=== PATIENT | male | born 1960 | race Caucasian/White ===

== ENCOUNTER → 2017-11-12 11:05 | Outpatient (CLI) | payer OTHER, SELFPAY ==
[2017-11-14 14:37] LABS: Parathyroid Hormone Int 61 pg/mL (14-64)
[2017-11-14 15:59] LABS: Ionized Calcium 5.2 mg/dL (4.8-5.6)
[2017-11-15 09:03] LABS: Albumin 4.6 g/dL (3.6-5.1); Sex Hormone Binding Globulin 12 nmol/L (22-77); Testosterone, Bioavailable 482.9 ng/dL (110.0-575.0); Testosterone, Total 790 ng/dL (250-1100); Testosterone,Free 229.9 pg/mL (46.0-224.0)
== END ==
PROVIDERS: PCP Physician Assistant; Visit Provider Physician Assistant
DX: E21.5 Disorder of parathyroid gland, unspecified (principal); E29.1 Testicular hypofunction
CPT/HCPCS: 36415; 82040; 82330; 83970; 84270; 84403

== ENCOUNTER 2019-02-20 16:47 | Emergency (ER) | payer OTHER, SELFPAY ==
[2019-02-20 16:48] VITALS: BP 161/91; PULSE 74; RESP 18; TEMP 36.6; O2SAT 96
--- NOTE | 2019-02-20 16:54 | DI.RAD.S_ITS ---
PROCEDURE: XR RIBS RT MIN 3V W CXR 1V INDICATIONS: fall w/ chest pain right side worse w/ movement. TECHNIQUE: 3 views of the right ribs were acquired, along with a single view chest. COMPARISON: None. FINDINGS: Surgical changes and devices: None. Bones and chest wall: No fractures or dislocations. No suspicious bony lesions. Overlying soft tissues appear unremarkable. Lungs and pleura: No pleural effusions or pneumothorax. Lungs appear clear. Mediastinum: Mediastinal contours appear normal. Heart size is enlarged. IMPRESSION: No visualized acute fracture or dislocation. However, if clinical concern and/or pain persist, short interval imaging followup in 7-10 days is recommended, as occult injury cannot be definitively excluded. Dictated by: Philly Gaytan M.D. on 02/20/2019 at 17:47 Approved by: Philly Gaytan M.D. on 02/20/2019 at 17:48
--- NOTE | 2019-02-20 17:39 | ED.FALL ---
HPI - Fall General Chief Complaint: Fall Stated Complaint: FALL RIB PAIN Time Seen by Provider: 02/20/19 17:12 Source: patient Mode of arrival: Ambulatory Limitations: no limitations History of Present Illness HPI Narrative: 58-year-old male nonsmoker with noncontributory medical history presents with a chief complaint of severe right-sided rib pain. He states he was sitting up in his bed about 1 week ago and was not quite awake when he toppled over and fell onto a hardwood floor. He had significant right-sided rib pain which seemed to improve over the course of the week until today when he made motion and then felt pop. He denies any shortness of breath or hemoptysis. He denies any blood in his urine or abdominal pain. He is otherwise well and free of complaint. MD complaint: fall Onset (ago): day(s) Fall from: out of bed Fall witnessed: no Place fall occurred: home Loss of consciousness: none Prolonged down time: no Symptoms prior to fall: none Context: tripped/slipped Location of injury: chest Related Data Home Medications Medication Instructions Recorded Confirmed amlodipine [Norvasc] 5 mg PO DAILY 02/20/19 02/20/19 citalopram 40 mg PO DAILY 02/20/19 02/20/19 lisinopril 40 mg PO DAILY 02/20/19 02/20/19 omeprazole 20 mg PO DAILY 02/20/19 02/20/19 quetiapine [Seroquel] 100 mg PO BEDTIME 02/20/19 02/20/19 simvastatin 20 mg PO BEDTIME 02/20/19 02/20/19 Previous Rx's Medication Instructions Recorded aspirin 81 mg chewable tablet 81 mg PO DAILY #30 tab 02/27/18 flecainide 100 mg tablet 100 mg PO Q12H PRN #30 tab 02/27/18 acyclovir 400 mg tablet 400 mg PO BID #100 tab 08/13/18 metoprolol tartrate 50 mg tablet 50 mg PO BID #180 tab 08/25/18 testosterone cypionate 200 mg/mL 200 mg IM QWEEK #4 ea 01/23/19 intramuscular oil hydrocodone-acetaminophen 1 tab PO Q4-6H PRN #10 tab 02/20/19 ketorolac 10 mg PO Q6H PRN #14 tab 02/20/19 lidocaine [Lidoderm] 1 patch TOP DAILY #15 each 02/20/19 Allergies Allergy/AdvReac Type Severity Reaction Status Date / Time Penicillins [PENICILLINS] Allergy Intermediate PATIENT Verified 02/27/18 11:08 CAN'T REMEMBER, WAS TOLD BY HIS FAMILY codeine [CODEINE] AdvReac Intermediate RASH Verified 02/27/18 11:08 Review of Systems Constitutional Constitutional: Denies chills, Denies fatigue, Denies fever(s), Denies frequent falls, Denies lethargy and Denies weakness Eyes Eyes: Denies change in vision, Denies eye discharge, Denies irritation and Denies loss of vision ENT Ears, Nose, Mouth, and Throat: Denies change in voice, Denies dizziness, Denies neck pain, Denies sore throat and Denies throat swelling Cardiovascular Cardiovascular: Denies chest pain, Reports chest pain with activity, Denies irregular heart rhythm, Denies lightheadedness, Denies palpitations, Denies dyspnea, Denies dyspnea on exertion and Denies orthopnea Respiratory Respiratory: Denies cough, Denies dyspnea, Denies dyspnea on exertion and Denies wheezing Gastrointestinal Gastrointestinal: Denies abdominal pain, Denies change in bowel habits, Denies diarrhea, Denies nausea and Denies vomiting Genitourinary Genitourinary: Denies hematuria, Denies flank pain, Denies urinary incontinence and Denies urinary urgency Musculoskeletal Musculoskeletal: Denies back pain, Denies muscle weakness, Denies neck pain, Denies numbness and Denies tingling Integumentary/Breasts Skin/Breast: Denies pruritus, Denies erythema, Denies rash and Denies wounds Neurologic Neurologic: Denies behavioral changes, Denies confusion, Denies dizziness, Denies frequent falls, Denies loss of vision, Denies numbness, Denies tingling and Denies weakness Psychiatric Psychiatric: Denies anxiety, Denies behavioral changes, Denies confusion, Denies depression, Denies homicidal ideation and Denies suicidal ideation Endocrine Endocrine: Denies fatigue, Denies flushing and Denies palpitations Hematologic/Lymphatic Hematologic/Lymphatic: Denies easy bruising Allergic/Immunologic Allergic/Immunologic: Denies urticaria, Denies throat swelling and Denies wheezing Patient History Medical/Surgical History Medical History Anxiety (Chronic 1991) Atrial fibrillation (Chronic 1988) Chronic pelvic pain in male (Chronic) Chronic prostatitis (Chronic Unknown) Depression (Chronic 1991) Fractures (Resolved 1983) Herpes (Inactive 1996) Hyperlipidemia (Chronic) Hypertension (Chronic 1999) Low testosterone (Chronic 2011) Lung nodules (Chronic Unknown) Rheumatoid arthritis (Chronic 1999) Surgical History History of facial surgery (Resolved 1983) History of parathyroid surgery (Resolved 2009) Hx of toe surgery (Resolved 2006) Family History Mother Diabetes mellitus Hypertension Hyperlipidemia Mental health disorder Father Cancer Brother Cancer Grandmother No problems noted. Social History Smoking Status: Never smoker alcohol intake: current (Ocassionally) substance use type: marijuana Family/Social History Family History Mother Diabetes mellitus Hypertension Hyperlipidemia Mental health disorder Father Cancer Brother Cancer Grandmother No problems noted. Social History Smoking Status: Never smoker alcohol intake: current (Ocassionally) substance use type: marijuana alcohol intake frequency: 0-2 drinks per day Substance Use Type: marijuana Exam Narrative Exam Narrative: GEN: AOx3 and in mild distress, GCS 15 EYES: Pupils are equal, round, and reactive to light and accommodation. Extraoccular muscles are intact bilaterally. There is no subconjunctival hemorrhage or exudate. CHEST: Lungs are clear to auscultation bilaterally and free of wheezes, rales, or rhonchi. Heart rate is regular rhythm, there are no murmurs, clicks, rubs, or gallops. Tenderness to palpation along right side lateral ribs ABD: Abdomen is soft and nontender. There is no guarding or rebound. Bowel sounds are normal in all 4 quadrants. There is no mass or organomegaly. EXT: Full painless ROM of all extremities with no loss of sensation or strength. SKIN: Warm, pink, and dry. No erythema or rash Initial Vital Signs Initial Vital Signs: Vital Signs Temperature 97.8 F 02/20/19 16:48 Pulse Rate 74 02/20/19 16:48 Respiratory Rate 18 02/20/19 16:48 Blood Pressure 161/91 H 02/20/19 16:48 Pulse Oximetry 96 02/20/19 16:48 Course Orders Ordered: ED Orders 02/20/19 16:54 XR ribs RT min 3V w CXR1V Stat Vital Signs Vital signs: Vital Signs - 8 hr 02/20/19 16:48 Temperature 97.8 F Pulse Rate 74 Respiratory Rate 18 Blood Pressure 161/91 H Pulse Oximetry 96 MDM - Fall Imaging Data Chest x-ray: Radiologist's impression: Yassine Saleh 58 M [address] [address] XRay Report Signed Patient: Yassine Saleh RMR#: [id number] : 9Acct:[id number] Age/Sex: 58 / MDate of Service: 02/20/19 Loc: ED Accession Number: [id number] Procedure: XR ribs RT min 3V w CXR1V Ordering Provider: Gilbert Valentino D.O. PROCEDURE: XR RIBS RT MIN 3V W CXR 1V INDICATIONS: fall w/ chest pain right side worse w/ movement. TECHNIQUE: 3 views of the right ribs were acquired, along with a single view chest. COMPARISON: None. FINDINGS: Surgical changes and devices: None. Bones and chest wall: No fractures or dislocations. No suspicious bony lesions. Overlying soft tissues appear unremarkable. Lungs and pleura: No pleural effusions or pneumothorax. Lungs appear clear. Mediastinum: Mediastinal contours appear normal. Heart size is enlarged. IMPRESSION: No visualized acute fracture or dislocation. However, if clinical concern and/or pain persist, short interval imaging followup in 7-10 days is recommended, as occult injury cannot be definitively excluded. Dictated by: Philly Gaytan M.D. on 02/20/2019 at 17:47 Approved by: Philly Gaytan M.D. on 02/20/2019 at 17:48 Discharge Plan Departure Patient Disposition: Home Clinical Impression: Contusion of rib on right side Qualifiers: Encounter type: initial encounter Qualified Code(s): S20.211A - Contusion of right front wall of thorax, initial encounter Instructions: DI for Rib Contusion Activity Restrictions/Additional Instructions: You have been prescribed narcotic medications. While on these medications you cannot drive or operate heavy machinery. Additionally you cannot sign legal documents or perform any duties such as this. 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 Please understand that we cannot provide further refills of narcotics or controlled substances through the ED and your pain management will need to be through your Primary Care Provider Prescriptions: New hydrocodone-acetaminophen 5-325 mg tablet 1 tab PO Q4-6H PRN (Reason: pain) Qty: 10 RF: 0 ketorolac 10 mg tablet 10 mg PO Q6H PRN (Reason: pain) Qty: 14 RF: 0 lidocaine [Lidoderm] 5 % adhesive patch,medicated 1 patch TOP DAILY Qty: 15 RF: 0 No Action flecainide 100 mg tablet 100 mg PO Q12H PRN (Reason: Palpitations) Qty: 30 RF: 5 aspirin 81 mg tablet,chewable 81 mg PO DAILY Qty: 30 RF: 3 acyclovir 400 mg tablet 400 mg PO BID Qty: 100 RF: 3 metoprolol tartrate 50 mg tablet 50 mg PO BID Qty: 180 RF: 3 testosterone cypionate [Depo-Testosterone] 200 mg/mL oil 200 mg IM QWEEK Qty: 4 RF: 2 citalopram 40 mg tablet 40 mg PO DAILY RF: 0 amlodipine [Norvasc] 5 mg tablet 5 mg PO DAILY RF: 0 quetiapine [Seroquel] 100 mg tablet 100 mg PO BEDTIME RF: 0 simvastatin 20 mg tablet 20 mg PO BEDTIME RF: 0 omeprazole 20 mg capsule,delayed release(DR/EC) 20 mg PO DAILY RF: 0 lisinopril 40 mg tablet 40 mg PO DAILY RF: 0 Referrals: Abner Jay MD [Primary Care Provider] -
[2019-02-20 18:33] VITALS: BP 155/90; PULSE 72; RESP 18; TEMP 36.7; O2SAT 98
== END 2019-02-20 18:33 | disposition home or self-care (01) ==
PROVIDERS: Emergency Provider Emergency Medicine; PCP Student in an Organized Health Care Education/Training Program
DX: S20.211A Contusion of right front wall of thorax, initial encounter (principal); R07.81 Pleurodynia; W06.XXXA Fall from bed, initial encounter
CPT/HCPCS: 71101; 99282; 99283

== ENCOUNTER → 2019-04-18 12:51 | Outpatient (CLI) | payer OTHER, SELFPAY ==
[2019-04-18 13:43] LABS: Blood Urea Nitrogen 17 mg/dL (9-20); Calcium 9.8 mg/dL (8.4-10.2); Carbon Dioxide 33 mmol/L (22-32); Chloride 97 mmol/L (98-107); Estimated Glomerular Filt Rate > 60.0 mL/min (>60); Glucose 111 mg/dL (80-110); HEMOLYSIS 20 (0-50); Potassium 4.8 mmol/L (3.4-5.1); Sodium 138 mmol/L (137-145)
[2019-04-23 13:01] LABS: Testosterone Free 309.8 pg/mL (35.0-155.0); Testosterone Total 1046 ng/dL (250-1100)
== END ==
PROVIDERS: PCP Student in an Organized Health Care Education/Training Program; Visit Provider Student in an Organized Health Care Education/Training Program
DX: I10 Essential (primary) hypertension (principal); R79.89 Other specified abnormal findings of blood chemistry
CPT/HCPCS: 36415; 80048; 84402; 84403

== ENCOUNTER → 2019-06-30 09:55 | Outpatient (CLI) | payer OTHER, SELFPAY ==
--- NOTE | 2019-06-30 09:58 | DI.RAD.S_ITS ---
PROCEDURE: XR CERVICAL SPINE 2V OR 3V INDICATIONS: neck pain, nerve pain in left shoulder and arm TECHNIQUE: 4 view(s) of the cervical spine were acquired. COMPARISON: None. FINDINGS: Bones: No fractures or dislocations to the T1 level. The lateral masses of C1 appear intact on the odontoid view. No suspicious bony lesions. Note is made of a moderate degree of degenerative osteoarthritic change at the facet joints and disc degeneration at the intervertebral joints, best seen at C4-5 through C6-7. Facet osteoarthritis appear slightly greater on the left than the right. Soft tissues: No prevertebral soft tissue swelling. IMPRESSION: Mild to moderate degenerative disc disease and facet osteoarthritis along the cervical spine, left greater than right, as the likely etiology for recurrent radicular pain emanating to the left shoulder and arm. Followup by MR scanning may be warranted. Dictated by: Mitch Chen M.D. on 06/30/2019 at 10:56 Approved by: Mitch Chen M.D. on 06/30/2019 at 10:58
== END ==
PROVIDERS: PCP Student in an Organized Health Care Education/Training Program; Referring Provider Nurse Practitioner; Visit Provider Nurse Practitioner
DX: M54.2 Cervicalgia (principal)
CPT/HCPCS: 72040

== ENCOUNTER → 2019-08-03 09:05 | Outpatient (CLI) | payer OTHER, SELFPAY ==
--- NOTE | 2019-08-03 09:06 | DI.MRI.S_ITS ---
PROCEDURE: MR CERVICAL SPINE WO CON INDICATIONS: Progressive arm parasthesia and weakness TECHNIQUE: Noncontrast sagittal T1 spin echo and T2 fast spin echo, and axial gradient echo or T2 fast spin echo through the cervical spine. COMPARISON: None. FINDINGS: Image quality: Somewhat limited by patient's size, resulting in inability to use the anterior neck coil. Patient also refused to complete the examination. Examination does not include stir sagittal sequence or oblique sequences. Alignment and Curvature: Trace degenerative retrolisthesis of C6 on C7 and of C5 on C6. Mild degenerative anterolisthesis of C2 on C3. Bone Marrow: Marrow demonstrates normal overall signal. Spinal Cord: Visualized spinal cord has normal size and signal. No cerebellar tonsillar herniation. Paraspinous Soft Tissues: No paravertebral masses. Prevertebral soft tissues are normal in thickness. C2-C3: Mild anterolisthesis of C2 on C3. No significant canal stenosis. No significant foraminal narrowing. C3-C4: Mild disc bulge. No canal stenosis. Large right uncovertebral joint osteophyte results in severe right foraminal narrowing. Mild left foraminal narrowing. C4-C5: Mild disc bulge. Mild canal stenosis. Mild bilateral foraminal narrowing. C5-C6: Diffuse disc bulge. Moderate canal stenosis. Bilateral uncovertebral joint hypertrophy results in at least moderate bilateral foraminal narrowing with flattening deformity of the exiting bilateral C6 nerve roots. C6-C7: Diffuse disc bulge. Facet and ligament hypertrophy. Moderate canal stenosis. Moderate to severe right foraminal narrowing and severe left foraminal narrowing. Left foraminal findings include a foraminal disc protrusion. There is impingement on the bilateral C7 nerve roots. C7-T1: No canal stenosis or foraminal stenosis. IMPRESSION: 1. Examination information limited by patient body habitus and inability to complete the examination. 2. Canal stenosis is mild at C4-C5, moderate at C5-C6, and moderate at C6-C7. 3. Right foraminal narrowing is severe at C3-C4, moderate at C5-C6, and moderate to severe at C6-C7. 4. Left foraminal narrowing is moderate at C5-C6 and severe at C6-C7. Dictated by: Gurwinder Tsai M.D. on 08/03/2019 at 9:50 Approved by: Gurwinder Tsai M.D. on 08/03/2019 at 10:00
== END ==
PROVIDERS: PCP Student in an Organized Health Care Education/Training Program; Referring Provider Student in an Organized Health Care Education/Training Program; Visit Provider Student in an Organized Health Care Education/Training Program
DX: M48.02 Spinal stenosis, cervical region (principal); R29.898 Other symptoms and signs involving the musculoskeletal system; R20.2 Paresthesia of skin; R20.0 Anesthesia of skin; Z87.828 Personal history of other (healed) physical injury and trauma
CPT/HCPCS: 72141

== ENCOUNTER → 2019-09-24 13:42 | Outpatient (CLI) | payer OTHER, SELFPAY | PROVIDERS: PCP Student in an Organized Health Care Education/Training Program; Referring Provider Student in an Organized Health Care Education/Training Program; Visit Provider Student in an Organized Health Care Education/Training Program | DX: R79.89 Other specified abnormal findings of blood chemistry (principal) | CPT/HCPCS: 36415; 84402; 84403 ==

== ENCOUNTER → 2019-10-08 12:11 | Outpatient (CLI) | payer OTHER, SELFPAY ==
[2019-10-15 16:14] LABS: Testosterone Total 602.4 ng/dL (264.0-916.0)
== END ==
PROVIDERS: PCP Student in an Organized Health Care Education/Training Program; Referring Provider Student in an Organized Health Care Education/Training Program; Visit Provider Student in an Organized Health Care Education/Training Program
DX: R79.89 Other specified abnormal findings of blood chemistry (principal)
CPT/HCPCS: 36415; 84402; 84403

== ENCOUNTER 2019-12-14 13:30 | Emergency (ER) | payer OTHER, SELFPAY ==
[2019-12-14] VITALS (13 sets, daily range): BP systolic 125–178; BP diastolic 61–113; PULSE 50–66; RESP 7–20; TEMP 37.1; O2SAT 92–96; BMI 39.3
--- NOTE | 2019-12-14 13:45 | DI.RAD.S_ITS ---
PROCEDURE: XR CHEST 1V INDICATIONS: chest pain TECHNIQUE: One view of the chest was acquired. COMPARISON: [facility], , CHEST 1 VIEW, 05/14/2016, 15:34. FINDINGS: Surgical changes and devices: None. Lungs and pleura: Lungs are clear. No pleural effusions or pneumothorax. Mediastinum: Mediastinal contours appear normal. Heart size is normal. Bones and chest wall: No suspicious bony lesions. Overlying soft tissues appear unremarkable. IMPRESSION: No acute cardiopulmonary disease process. Dictated by: Love Lira MD, PhD on 12/14/2019 at 14:03 Approved by: Love Lira MD, PhD on 12/14/2019 at 14:04
[2019-12-14 14:31] LABS: Add Manual Diff / Slide Review NO; Basophils Absolute Auto 100 /uL (0-100); Basophils Percent Auto 0.7 % (0-2); Eosinophils Absolute Auto 200 /uL (0-450); Hematocrit 53.5 % (41-53); Hemoglobin 16.5 g/dL (13.5-17.5); Lymphocytes Absolute Auto 1300 /uL (1100-4500); Lymphocytes Percent Auto 18.9 % (25-40); Mean Corpuscular HGB Conc 30.8 % (30-36); Mean Corpuscular Hemoglobin 23.4 PG (26-34); Monocytes Absolute Auto 700 /uL (0-900); Monocytes Percent Auto 10.4 % (3-14); Neutrophils Absolute Auto 4700 /uL (1500-7000); Platelet Count 183 X10^3/uL (150-400); Red Blood Cell Count 7.04 X10^6/uL (4.5-5.9); Red Cell Distribution Width 16.7 % (11.6-14.8)
[2019-12-14 14:38] LABS: Prothrombin Time 11.6 SECONDS (10.1-12.7)
[2019-12-14 14:41] LABS: PTT Partial Thromboplastin Tim 32 SECONDS (26.4-36.2)
[2019-12-14 14:45] LABS: Alanine Aminotransferase 27 IU/L (<50); Albumin 4.6 g/dL (3.5-5.0); Albumin Globulin Ratio 1.5 (1.0-2.8); Alkaline Phosphatase 59 U/L (38-126); Aspartate Aminotransferase 28 IU/L (17-59); Bilirubin Total 1.2 mg/dL (0.2-1.3); Blood Urea Nitrogen 16 mg/dL (9-20); Calcium 9.9 mg/dL (8.4-10.2); Carbon Dioxide 33 mmol/L (22-32); Chloride 98 mmol/L (98-107); Creatine Kinase 129 U/L (55-170); Estimated Glomerular Filt Rate > 60.0 mL/min (>60); Globulin 3.1 g/dL (1.7-4.1); Glucose 126 mg/dL (80-110); HEMOLYSIS < 15 (0-50); Lipase 224 U/L (23-300); Potassium 4.3 mmol/L (3.4-5.1); Sodium 136 mmol/L (137-145); Total Protein 7.7 g/dL (6.3-8.2)
[2019-12-14 14:57] LABS: Troponin I < 0.012 ng/mL (0.01-0.034)
[2019-12-14] MEDS: NITROGLYCERIN 0.4 MG SL TAB SL ×2 (14:57→15:23)
[2019-12-14 15:00] LABS: CKMB % Relative Index 2.4 % (1.5-5.0); Creatine Kinase MB 3.12 ng/mL (<2.37)
--- NOTE | 2019-12-14 15:17 | PC.NURSE ---
Patient report nitro tablet dropped pain from 07/20 to 05/22 with significant improvement in symptoms of tightness and shortness of breath. States I feel like I can breathe way easier now. Dr. Branch at bedside and aware.
--- NOTE | 2019-12-14 15:17 | ED.CHESTPAIN ---
HPI - Chest Pain General Chief Complaint: Chest Pain Stated Complaint: cardiology reffered angina attack Time Seen by Provider: 12/14/19 15:00 Source: patient Mode of arrival: Ambulatory History of Present Illness HPI narrative: CC: Chest Pain HPI: The patient is a 58-year-old male who presents to the emergency department with chest pain and neck pain associated with intermittent recurrent diaphoresis. The patient complains of chronic neck pain secondary to questionable radiculopathy and degenerative cervical changes. The patient states that he periodically has shooting pain and numbness in his left arm. He states over the last few days he has had the shooting pain into his left arm and his jaw which was associated with a dull achy pressure in his chest. He states as though there was a heavy weight in the center of his chest. He has had shortness of breath without increased coughing or wheezing. He complains of being weak and tired. He has had weakness in his left arm with atrophy of the muscle secondary to his known chronic neck changes. But the left arm pain associated with jaw pain was most bothersome. He denies any fall or injury. He is not on any anticoagulation. He has a history of atrial fibrillation but no myocardial infarction. He denies a history of asthma COPD myocardial infarction congestive heart failure stroke TB HIV or hepatitis. He has some degree of chronic back pain but has had no recent fall. The patient does not smoke cigarettes drinks alcohol and smokes marijuana. He denies any fever chills but has had intermittent sweats. He has had no significant headache he has had intermittent palpitations and periodically feels dizzy and lightheaded but has not passed out. He has had no significant abdominal pain nausea vomiting diarrhea or urinary symptoms. Related Data Home Medications Medication Instructions Recorded Confirmed omeprazole 20 mg PO DAILY 02/20/19 06/30/19 quetiapine [Seroquel] 100 mg PO BEDTIME 02/20/19 06/30/19 Previous Rx's Medication Instructions Recorded aspirin 81 mg chewable tablet 81 mg PO DAILY #30 tab 02/27/18 amlodipine 5 mg tablet 5 mg PO DAILY #90 tab 03/02/19 lisinopril 40 mg tablet 40 mg PO DAILY #90 tab 03/19/19 metoprolol tartrate 100 mg tablet 100 mg PO BID #180 tab 03/19/19 citalopram 40 mg tablet 40 mg PO DAILY #90 tab 04/16/19 simvastatin 20 mg tablet 20 mg PO BEDTIME #90 tab 04/16/19 testosterone cypionate 200 mg/mL 200 mg IM Q2W #4 each 05/28/19 intramuscular oil meloxicam 15 mg tablet 15 mg PO DAILY #30 tab 07/09/19 metaxalone 800 mg tablet 800 mg PO TID PRN #30 tab 07/24/19 acyclovir 400 mg tablet 400 mg PO DAILY #90 tab 09/18/19 isosorbide mononitrate 30 mg PO DAILY #30 tab 12/14/19 nitroglycerin 0.4 mg SL Q5-15M PRN #25 tab 12/14/19 Allergies Allergy/AdvReac Type Severity Reaction Status Date / Time Penicillins [PENICILLINS] Allergy Intermediate PATIENT Verified 06/30/19 09:04 CAN'T REMEMBER, WAS TOLD BY HIS FAMILY codeine [CODEINE] AdvReac Intermediate RASH Verified 06/30/19 09:04 Review of Systems Review of Systems Narrative: His review of systems were all negative except for those mentioned in the history of present illness. Patient History Medical History Anxiety (Chronic 1991) Atrial fibrillation (Chronic 1988) Chronic pelvic pain in male (Chronic) Chronic prostatitis (Chronic Unknown) Depression (Chronic 1991) Fractures (Resolved 1983) Herpes (Inactive 1996) Hyperlipidemia (Chronic) Hypertension (Chronic 1999) Low testosterone (Chronic 2011) Lung nodules (Chronic Unknown) Rheumatoid arthritis (Chronic 1999) Surgical History History of facial surgery (Resolved 1983) History of parathyroid surgery (Resolved 2009) Hx of toe surgery (Resolved 2006) Family History Mother Diabetes mellitus Hypertension Hyperlipidemia Mental health disorder Father Cancer Brother Cancer Grandmother No problems noted. Social History Smoking Status: Never smoker alcohol intake: current (Ocassionally) substance use type: marijuana Smoking Status: Never smoker alcohol intake frequency: 0-2 drinks per day Substance Use Type: marijuana Exam Narrative Exam Narrative: PHYSICAL EXAM: CONSTITUTIONAL: Awake, Alert, Oriented, Coherent, Cooperative in NAD. Does not appear toxic or ill. HEAD: AT/NC EENT: PERRL, FROM of eyes, no discharge, no nystagmus, no icterus. NOSE:No epistaxis or nasal drainage MOUTH:Oral mucosa is moist and pink, posterior pharynx is without erythema or exudate. NECK: Supple, no obvious JVD, Trachea is midline without stridor, no palpable LN. The patient has a short neck. SPINE: Palpationof the cervical, Thoracic, Lumbar or Sacral spine reveals no gross deformity or tenderness. No CVA tenderness. THORAX: No deformity, retractions, chest wall tenderness. Patient has an increased AP diameter of his chest. LUNGS: Breath sounds are symmetrical and slightly decreased bilaterally. There were no wheezes or rhonchi. HEART: Heart is regular rhythm slow without appreciable murmur. ABDOMEN: Soft, non-tender, normal bowel sounds without guarding, rebound, rigidity or palpable mass. EXTREMITIES: No edema, deformity, calf tenderness or cyanosis. SKIN: No rash, bruising, petechiae or purpura. NEURO: Awake, alert, oriented, conversive, cranial nerves II-XII are symmetrical , moves all 4 extremities and is ambulatory. MENTAL HEALTH: Does not appear anxious or depressed. Initial Vital Signs Initial Vital Signs: Vital Signs Temperature 98.7 F 12/14/19 13:42 Pulse Rate 63 12/14/19 13:42 Respiratory Rate 20 12/14/19 13:42 Blood Pressure 178/113 H 12/14/19 13:42 Pulse Oximetry 96 12/14/19 13:42 Course Course Course Narrative: 1518:The patient has chronic neck pain secondary to pinched nerves. The patient's chest pain significantly improved as did his shortness of breath with nitroglycerin sublingually. His discomfort at this time is 1 to 2/10 in intensity. The patient is being administered Toradol IV for his neck and arm discomfort and nitropaste a 1/2 inch for his chest discomfort. 1620: Patient's initial troponin was ordered at 2:24 p.m.. It was less than 0.012. A 2nd troponin will be ordered at 4:24 p.m. and a repeat EKG. 1647: The patient's repeat EKG reveals a sinus bradycardia with QS waves in leads III, AVF and V1. The patient has upright T-waves in lead V1 flat T-waves in lead III and AVF. There are no other acute diagnostic ST segment changes at this time. The patient's ventricular rate is 52 p.r. interval is 191 milliseconds QRS is 91 milliseconds duration QTC is 380 with left axis deviation. The 2nd EKG is unchanged from the 1st EKG. I informed the patient that his 1st troponin was normal and that there has been no change in 2 EKGs. I informed him that if his 2nd troponin is normal at means that there has been no damage or injury to his heart. The options will be to admit him observation status in trying performed the stress test in the hospital or he is discharged home to be seen by his american sign language teacher and have the stress test as an outpatient. Since the patient has been here on nitropaste he has had no chest pain or she is shortness of breath. He states that his american sign language teacher's office told him to come up to the emergency department to be evaluated. If his workup is negative he was advised to call the office and they would schedule him to be evaluated in the office as soon as possible. The patient has been pain-free since being placed on nitro paste. Orders Ordered: Discontinued Medications Ketorolac Tromethamine (Toradol) 30 mg IV NOW ONE Stop: 12/14/19 15:02 Last Admin: 12/14/19 15:25 Dose: 30 mg Documented by: ELVIRA Nitroglycerin (Nitrostat) 0.4 mg SL [id number] PRN PRN Reason: Chest Pain Last Admin: 12/14/19 15:23 Dose: 0.4 mg Documented by: Admin: 12/14/19 14:57 Dose: 0.4 mg Documented by: ELVIRA Nitroglycerin (Nitro-Bid) 0.5 inch TOP NOW ONE Stop: 12/14/19 15:18 Last Admin: 12/14/19 15:24 Dose: 0.5 inch Documented by: ELVIRA Vital Signs Vital signs: Vital Signs - 8 hr 12/14/19 13:42 12/14/19 14:57 12/14/19 15:01 Temperature 98.7 F Pulse Rate 63 65 57 L Respiratory Rate 20 13 Blood Pressure 178/113 H 169/94 H 125/65 Pulse Oximetry 96 93 12/14/19 15:21 12/14/19 15:23 12/14/19 15:24 Temperature Pulse Rate 53 L 62 66 Respiratory Rate 15 Blood Pressure 152/81 H 152/61 H 152/61 H Pulse Oximetry 95 12/14/19 15:31 12/14/19 16:00 12/14/19 16:30 Temperature Pulse Rate 53 L 50 L 53 L Respiratory Rate 19 7 L 18 Blood Pressure 137/65 125/73 136/88 Pulse Oximetry 93 94 95 MDM - Chest Pain Medical Records Data Attestation: I reviewed the patient's medical records. Lab Data Attestation: I reviewed the patient's lab results. Result diagrams: 12/14/19 14:24 12/14/19 14:24 Labs: Lab Results 12/14/19 12/14/19 12/14/19 Range/Units 14:24 14:24 14:24 WBC 7.0 (4.5-11.0) X10^3/uL RBC 7.04 H (4.5-5.9) X10^6/uL Hgb 16.5 (13.5-17.5) g/dL Hct 53.5 H (41-53) % MCV 76.0 L (80-100) fL MCH 23.4 L (26-34) PG MCHC 30.8 (30-36) % RDW 16.7 H (11.6-14.8) % Plt Count 183 (150-400) X10^3/uL Neut % (Auto) 67.0 (50-75) % Lymph % (Auto) 18.9 L (25-40) % [place] % (Auto) 10.4 (3-14) % Eos % (Auto) 3.0 (2-4) % Baso % (Auto) 0.7 (0-2) % Neut # (Auto) 4700 (3953-4516) /uL Lymph # (Auto) 1300 (7311-2195) /uL [place] # (Auto) 700 (0-900) /uL Eos # (Auto) 200 (0-450) /uL Baso # (Auto) 100 (0-100) /uL PT 11.6 (10.1-12.7) SECONDS INR 1.0 (0.9-1.3) APTT 32 (26.4-36.2) SECONDS Sodium 136 L (137-145) mmol/L Potassium 4.3 (3.4-5.1) mmol/L Chloride 98 (98-107) mmol/L Carbon Dioxide 33 H (22-32) mmol/L BUN 16 (9-20) mg/dL Creatinine 0.84 (0.66-1.25) mg/dL Estimated GFR > 60.0 (>60) mL/min BUN/Creatinine Ratio 19.0 (6-22) Glucose 126 H (80-110) mg/dL Calcium 9.9 (8.4-10.2) mg/dL Total Bilirubin 1.2 (0.2-1.3) mg/dL AST 28 (17-59) IU/L ALT 27 (<50) IU/L Alkaline Phosphatase 59 (38-126) U/L Total Creatine Kinase 129 (55-170) U/L CK-MB (CK-2) 3.12 H (<2.37) ng/mL CK-MB (CK-2) Rel Index 2.4 (1.5-5.0) % Troponin I < 0.012 (0.01-0.034) ng/mL Total Protein 7.7 (6.3-8.2) g/dL Albumin 4.6 (3.5-5.0) g/dL Globulin 3.1 (1.7-4.1) g/dL Albumin/Globulin Ratio 1.5 (1.0-2.8) Lipase 224 (23-300) U/L /07/30 Range/Units 16:37 WBC (4.5-11.0) X10^3/uL RBC (4.5-5.9) X10^6/uL Hgb (13.5-17.5) g/dL Hct (41-53) % MCV (80-100) fL MCH (26-34) PG MCHC (30-36) % RDW (11.6-14.8) % Plt Count (150-400) X10^3/uL Neut % (Auto) (50-75) % Lymph % (Auto) (25-40) % [place] % (Auto) (3-14) % Eos % (Auto) (2-4) % Baso % (Auto) (0-2) % Neut # (Auto) (4663-1064) /uL Lymph # (Auto) (9979-7665) /uL [place] # (Auto) (0-900) /uL Eos # (Auto) (0-450) /uL Baso # (Auto) (0-100) /uL PT (10.1-12.7) SECONDS INR (0.9-1.3) APTT (26.4-36.2) SECONDS Sodium (137-145) mmol/L Potassium (3.4-5.1) mmol/L Chloride (98-107) mmol/L Carbon Dioxide (22-32) mmol/L BUN (9-20) mg/dL Creatinine (0.66-1.25) mg/dL Estimated GFR (>60) mL/min BUN/Creatinine Ratio (6-22) Glucose (80-110) mg/dL Calcium (8.4-10.2) mg/dL Total Bilirubin (0.2-1.3) mg/dL AST (17-59) IU/L ALT (<50) IU/L Alkaline Phosphatase (38-126) U/L Total Creatine Kinase (55-170) U/L CK-MB (CK-2) (<2.37) ng/mL CK-MB (CK-2) Rel Index (1.5-5.0) % Troponin I < 0.012 (0.01-0.034) ng/mL Total Protein (6.3-8.2) g/dL Albumin (3.5-5.0) g/dL Globulin (1.7-4.1) g/dL Albumin/Globulin Ratio (1.0-2.8) Lipase (23-300) U/L ECG Data Attestation: I personally reviewed and interpreted this ECG as follows: Interpretation: The patient's initial EKG obtained at 1:51 p.m. reveals a sinus bradycardia with a ventricular rate of 54 p.r. interval is 175 milliseconds QRS is 103 milliseconds QTC is 388 milliseconds. The patient has a left axis deviation. There is a QS live wave in V1 III and AVF. T-waves are upright and slightly flattened in V1 while the T-waves are flattened in lead III and AVF. There are no other acute diagnostic ST or T-wave changes noted. Discharge Plan Departure Patient Disposition: Home Clinical Impression: Chronic neck pain Chest pain Qualifiers: Chest pain type: unspecified Qualified Code(s): R07.9 - Chest pain, unspecified Discharge Date/Time: 12/14/19 18:11 Instructions: DI for Angina, DI for Atypical Chest Pain Activity Restrictions/Additional Instructions: 1. If you develop worsening chest pain uncontrolled by 3 nitro and the Imdur, you need to return to the emergency department to be re-evaluated. 2. Take nitroglycerin sublingually when you develop chest pain every 5 minutes as directed up to a total of 3 tablets in 15 minutes. If your pain does not resolve in this time. You need to return to the emergency department to be evaluated. The same applies to shortness of breath associated with your chest pain. 3. If you develop uncontrolled chest pain, racing of your heart, abdominal pain, persistent nausea and vomiting unable to keep her medications or fluids down fever, feeling faint or passing-out you need to return to the emergency department. 4. Take Imdur as prescribed. 5. Call your american sign language teacher as instructed tomorrow morning and make a follow-up appointment to be evaluated. Prescriptions: New isosorbide mononitrate 30 mg tablet extended release 24 hr 30 mg PO DAILY Qty: 30 RF: 0 nitroglycerin 0.4 mg tablet, sublingual 0.4 mg SL Q5-15M PRN (Reason: chest pain) Qty: 25 RF: 1 No Action aspirin 81 mg tablet,chewable 81 mg PO DAILY Qty: 30 RF: 3 amlodipine 5 mg tablet 5 mg PO DAILY Qty: 90 RF: 3 citalopram 40 mg tablet 40 mg PO DAILY Qty: 90 RF: 3 simvastatin 20 mg tablet 20 mg PO BEDTIME Qty: 90 RF: 3 testosterone cypionate [Depo-Testosterone] 200 mg/mL oil 200 mg IM Q2W Qty: 4 RF: 5 Hold Instructions: Labs overdue meloxicam 15 mg tablet 15 mg PO DAILY Qty: 30 RF: 3 metaxalone 800 mg tablet 800 mg PO TID PRN (Reason: muscle pain) Qty: 30 RF: 1 acyclovir 400 mg tablet 400 mg PO DAILY Qty: 90 RF: 3 metoprolol tartrate 100 mg tablet 100 mg PO BID Qty: 180 RF: 3 lisinopril 40 mg tablet 40 mg PO DAILY Qty: 90 RF: 3 quetiapine [Seroquel] 100 mg tablet 100 mg PO BEDTIME RF: 0 omeprazole 20 mg capsule,delayed release(DR/EC) 20 mg PO DAILY RF: 0 Hold Instructions: Try H2 joey Referrals: Abner Jay MD [Primary Care Provider] -
[2019-12-14] MEDS: NITROGLYCERIN OINT 1 INCH/GM OINT...G. 0.5 INCH TOP (15:24)
[2019-12-14] MEDS: KETOROLAC 60 MG/2 ML VIAL 30 MG IV (15:25)
--- NOTE | 2019-12-14 15:31 | PC.NURSE ---
Pain had returned at 5/10 with tightness and difficulty breathing. I gave him a second dose of SL nitro 0.4mg and this reduced the pain back to a 1/10 with no shortness of breath. I then 0.5 in applied nitro paste and gave him toradol IV 30mg.
[2019-12-14 17:07] LABS: Troponin I < 0.012 ng/mL (0.01-0.034)
== END 2019-12-14 18:11 | disposition home or self-care (01) ==
PROVIDERS: Emergency Provider Emergency Medicine; PCP Student in an Organized Health Care Education/Training Program
DX: M54.2 Cervicalgia (principal); R07.9 Chest pain, unspecified; M79.602 Pain in left arm; R06.02 Shortness of breath; I48.91 Unspecified atrial fibrillation
CPT/HCPCS: 36415; 71045; 80053; 82550; 82553; 83690; 84484; 85025; 85610; 85730; 93005; 96374; 99284; J1885

== ENCOUNTER → 2020-05-20 10:07 | Outpatient (CLI) | payer OTHER, SELFPAY ==
[2020-05-20 10:58] LABS: Hematocrit 56.6 % (41-53); Hemoglobin 17.9 g/dL (13.5-17.5)
== END ==
PROVIDERS: PCP Student in an Organized Health Care Education/Training Program; Referring Provider Student in an Organized Health Care Education/Training Program; Visit Provider Student in an Organized Health Care Education/Training Program
DX: R79.89 Other specified abnormal findings of blood chemistry (principal)
CPT/HCPCS: 36415; 84402; 84403; 85014; 85018

== ENCOUNTER → 2020-09-27 11:20 | Outpatient (CLI) | payer OTHER, SELFPAY ==
--- NOTE | 2020-09-27 11:22 | DI.RAD.S_ITS ---
PROCEDURE: XR KNEE RT 3V INDICATIONS: Knee pain TECHNIQUE: 3 views of the knee were acquired. COMPARISON: None. FINDINGS: Bones: No fractures or dislocations. No suspicious bony lesions. Soft tissues: No joint effusion. No suspicious soft tissue calcifications. IMPRESSION: No fracture or dislocation. Mild tricompartmental knee joint degeneration. Dictated by: Carina Heart M.D. on 09/27/2020 at 17:33 Approved by: Carina Heart M.D. on 09/27/2020 at 17:36
== END ==
PROVIDERS: PCP Student in an Organized Health Care Education/Training Program; Referring Provider Student in an Organized Health Care Education/Training Program; Visit Provider Student in an Organized Health Care Education/Training Program
DX: M25.561 Pain in right knee (principal); M17.11 Unilateral primary osteoarthritis, right knee
CPT/HCPCS: 73562

== ENCOUNTER 2020-11-30 09:45 | Outpatient (RCR) | payer OTHER, SELFPAY ==
--- NOTE | 2020-09-30 12:43 | PT.OIE ---
Current Diagnoses Other chronic pain (09/30/20) Pain in right knee (09/30/20) Past Medical History (Last Updated 09/27/20 @ 20:27 by Abner Jay MD) Anxiety (1991) Atrial fibrillation (1988) Chronic prostatitis (Unknown) Depression (1991) Fractures (1983) Herpes (1996) Hyperlipidemia Hypertension (1999) Low testosterone (2011) Rheumatoid arthritis (1999) Past Surgical History (Last Updated 04/02/20 @ 21:00 by Abner Jay MD) History of facial surgery (1983) History of parathyroid surgery (2009) Hx of toe surgery (2006) Visit Care Team Role Provider Type Abner Jay MD Attending Provider Physician Primary Care Provider Referring Provider Specialty: Internal Medicine Address: [address] [place] [address], [address], [facility] Email: [email or web address] Physical Therapy Initial Evaluation PT-OP-A Visit Information Start: 09/30/20 12:18 Freq: Status: Active Protocol: Document 09/30/20 12:18 (Rec: 09/30/20 12:43 [email or web address]) Out-Patient Physical Therapy Visit Information Visit Information Visit Type Initial Evaluation Visit Start Time 10:35 Visit Stop Time 11:15 Total Visit Minutes 40 Visit Number Number of VC++ DEVELOPER Visits 0 Evaluation Information Evaluation Date 09/30/20 PT-OP-B Current Condition Start: 09/30/20 12:18 Freq: Status: Active Protocol: Document 09/30/20 12:18 HH (Rec: 09/30/20 12:43 [email or web address]) Current Condition History of Current Condition Onset Date 3 weeks ago Current Complaints subacute R knee pain, difficulty in walking History of Current Condition Yassine is a retired 59yo male here for his new onset of R knee pain started 3 weeks ago. He stated he planted awkwardly with his R knee in a twisted position after coming off from the ladder which gave immediate sharp pain. ( unable to identify exact painful location) Since then, pt has significant difficulty in walking, climbing stair and bending/ twisting his knee. He has to walk with knee straight at this point and also c/o episodes of clicking and giving out. He has been wearing a soft knee brace to provide stability. pt stated he had been dealing with chronic knee pain for years but this is something new and worse than before. He also stated he has been having numbness and tingling at his whole lateral aspect of R leg for a few years. Prior Treatments and Tests x-ray @R knee at 09/27/20 IMPRESSION: No fracture or dislocation. Mild tricompartmental knee joint degeneration. Treatment Goals Patient/Caregiver Goals 1. to regain his full knee ROM and strength 2. 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 PT-OP-C Subjective Start: 09/30/20 12:18 Freq: Status: Active Protocol: Document 09/30/20 12:18 HH (Rec: 09/30/20 12:43 [email or web address]) Patient Questionnaires Lower Extremity Functional Scale LEFS Score 21 LEFS Impairment 60 to 79% Impaired (Score 17- 31) OP-PT Pain Assessment Location R knee Pain Location Details generalized knee pain Intensity 8 Scale Used Numeric (0 - 10) Description Aching,Acute,Pressure,Sharp Frequency Frequent Pain Aggravating Factors Position,Changing Position,ADL 's,Activity,Exercise,Standing, Walking,Stair Climbing,Bending ,Lifting Pain Alleviating Factors Cold,Inactivity PT-OP-F Manual Assessment Start: 09/30/20 12:18 Freq: Status: Active Protocol: Document 09/30/20 12:18 HH (Rec: 09/30/20 12:43 [email or web address]) Manual Assessments Soft Tissue Assessment Soft Tissue Mobility Assessment significant hypertoncity at distal hamstrings slight tenderness at distal patella tendon Joint Mobility Assessment Joint Mobility Assessment significant muscle guarding with PROM at R knee PT-OP-G Mobility & Gait Start: 09/30/20 12:18 Freq: Status: Active Protocol: Document 09/30/20 12:18 HH (Rec: 09/30/20 12:43 [email or web address]) OP Gait Assessment Gait Deviations General Gait Pattern Antalgic,Decreased Stride Length,Decreased Feet Clearance Factors Limiting Gait Function Factors Limiting Gait Function Decreased Activity Tolerance, Decreased Sensation,Decreased Strength,Limited Range of Motion,Pain,Poor Balance,Poor Safety Awareness Comments Gait Comments pt amb with a stiff knee pattern : decreased knee flexion during swing phase and push off during preswing. PT-OP-K Range of Motion Start: 09/30/20 12:18 Freq: Status: Active Protocol: Document 09/30/20 12:18 (Rec: 09/30/20 12:43 [email or web address]) Knee Goniometric Range of Motion Knee Right Knee ROM WFL No Patient Position Supine Flexion Active (degrees) 122 Extension Active (degrees) 0 Comments significant pain at R knee with end range flexion. Left Knee ROM WFL Yes Flexion Active (degrees) 135 Extension Active (degrees) 0 PT-OP-L Special Tests Start: 09/30/20 12:18 Freq: Status: Active Protocol: Document 09/30/20 12:18 (Rec: 09/30/20 12:43 [email or web address]) Special Tests Knee Special Tests Anterior Draw Test Results -ve PETE Test Results -ve Jared Test Test Results +Ve r Comments R lateral knee pain with knee valgus force with external rotation at R tibia relief with lateral knee traction Apley's Compression Test Results -ve Varus- 0 Degrees Test Results -ve Valgus- 25 Degrees Test Results -ve Varus- 25 Degrees Test Results -ve Valgus- 0 Degrees Test Results -ve PT-OP-M Strength Start: 09/30/20 12:18 Freq: Status: Active Protocol: Document 09/30/20 12:18 (Rec: 09/30/20 12:43 [email or web address]) Hip Strength Hip Manual Muscle Testing Right Flexion (L2) 4+ Good+ Extension (S1) 4+ Good+ Abduction 4+ Good+ Adduction 4+ Good+ Left Flexion (L2) 5 Normal Extension (S1) 5 Normal Abduction 5 Normal Adduction 5 Normal Knee Strength Knee Manual Muscle Testing Right Flexion (S2) 3+ Fair+ Extension (L3) 3+ Fair+ Comments significant pain against resistance Left Flexion (S2) 5 Normal Extension (L3) 5 Normal PT-OP-T Assessment and Plan Start: 09/30/20 12:18 Freq: Status: Active Protocol: Document 09/30/20 12:18 (Rec: 09/30/20 12:43 [email or web address]) Physical Therapy Assessment Rehab Potential Rehabilitation Potential Good Evaluation Complexity Number of Personal Factors/Comorbidities 1-2 Number of Body Systems Impaired 1-2 Clinical Presentation at Evaluation Stable Impairments Impairments Activity Tolerance,Balance, Edema,Functional Activities, Functional Mobility,Gait,Pain, Posture,ROM,Sensation,Soft Tissue Mobility,Strength, Transfers Goals balance Impairment unable to stand on RLE Short Term Goal (STG) pt will be able to show improved balance and stability to stand on R LE >10 seconds. STG Duration 4 weeks Cutter In Goal (LTG) pt will be able to show improved balance and stability in order for him to climb ladder to work on his boat again safely LTG Duration 8 weeks gait Impairment antalgic gait Care Home Goal (LTG) pt will be able to amb without the use of knee brace and show normalized gait (knee flexion during swing phaese) LTG Duration 8 weeks ROM Impairment limited R knee flexion Short Term Goal (STG) pt will be able to show increased R knee ROM up to 135 degrees without increase in pain STG Duration 4 weeks Cutter In Goal (LTG) pt will be able to actively flex his R knee > 90 degrees to climb stairs without discomfort LTG Duration 8 weeks LEFS Impairment pt scores 21 on LEFS Short Term Goal (STG) pt will score >35 on LEFS to show improved functional mobility and strength STG Duration 4 weeks Cutter In Goal (LTG) pt will score >45 on LEFS to show improved functional mobility and strength LTG Duration 8 weeks Assessment Summary Assessment Yassine is a retired 59 yo male here for his new onset of R knee pain started 3 weeks ago after he landed awkwardly from the ladder. Upon assessment, pt presents possible R lateral meniscus tear with positive sign from Jared test and relief from lateral traction at knee joint . He has limited knee flexion and strength which significantly affects his gait and balance. Since there is a possible structural damage, I believe Yassine can attempt a course of conservative physical therapy for 2 months to improve his overall R knee mobility, strength and stability. If pt does not improve, i strongly recommend further imaging (MRI) / second opinion/ surgical consult might be needed. Physical Therapy Plan Frequency and Duration Frequency of Treatment 2x/wk x4, 1x/wkx4 Duration of Treatment 8 weeks Plan of Care Start Date 09/30/20 Plan of Care End Date 11/29/20 Therapeutic Interventions Therapeutic Interventions Aquatic Therapy,Balance Training,Gait Training,Home Exercise Program,Joint Mobilizations,Manual Therapy, Neuromuscular Re-education, Patient/Caregiver Education, Self-Care/Home Management,Soft Tissue Mobilization,Taping, Therapeutic Activities, Therapeutic Exercises Modalities Biofeedback,Cold Pack/Ice Massage,Electric Stimulation, Hot Packs,Infrared Therapy, Iontophoresis,Traction- Mechanical,Ultrasound Next Visit Focus/Plan Next Note Type Treatment Note Next Visit Plan STM at HS, quad lateral traction for R knee knee ROM ex as shyann
--- NOTE | 2020-09-30 12:43 | PT.OPPOC ---
Physical, Occupational & Speech Therapy At [facility] Current Diagnoses Other chronic pain (09/30/20) Pain in right knee (09/30/20) Visit Care Team Role Provider Type Abner Jay MD Attending Provider Physician Primary Care Provider Referring Provider Specialty: Internal Medicine Address: [address] [place] [address], [facility] Email: [email or web address] Plan Of Care PT-OP-T Assessment and Plan Start: 09/30/20 12:18 Freq: Status: Active Protocol: Document 09/30/20 12:18 (Rec: 09/30/20 12:43 [email or web address]) Physical Therapy Assessment Rehab Potential Rehabilitation Potential Good Evaluation Complexity Number of Personal Factors/Comorbidities 1-2 Number of Body Systems Impaired 1-2 Clinical Presentation at Evaluation Stable Impairments Impairments Activity Tolerance,Balance, Edema,Functional Activities, Functional Mobility,Gait,Pain, Posture,ROM,Sensation,Soft Tissue Mobility,Strength, Transfers Goals balance Impairment unable to stand on RLE Short Term Goal (STG) pt will be able to show improved balance and stability to stand on R LE >10 seconds. STG Duration 4 weeks Jail Goal (LTG) pt will be able to show improved balance and stability in order for him to climb ladder to work on his boat again safely LTG Duration 8 weeks gait Impairment antalgic gait Table Maker Goal (LTG) pt will be able to amb without the use of knee brace and show normalized gait (knee flexion during swing phaese) LTG Duration 8 weeks ROM Impairment limited R knee flexion Short Term Goal (STG) pt will be able to show increased R knee ROM up to 135 degrees without increase in pain STG Duration 4 weeks Jail Goal (LTG) pt will be able to actively flex his R knee > 90 degrees to climb stairs without discomfort LTG Duration 8 weeks LEFS Impairment pt scores 21 on LEFS Short Term Goal (STG) pt will score >35 on LEFS to show improved functional mobility and strength STG Duration 4 weeks Jail Goal (LTG) pt will score >45 on LEFS to show improved functional mobility and strength LTG Duration 8 weeks Assessment Summary Assessment Yassine is a retired 59 yo male here for his new onset of R knee pain started 3 weeks ago after he landed awkwardly from the ladder. Upon assessment, pt presents possible R lateral meniscus tear with positive sign from Jared test and relief from lateral traction at knee joint . He has limited knee flexion and strength which significantly affects his gait and balance. Since there is a possible structural damage, I believe Yassine can attempt a course of conservative physical therapy for 2 months to improve his overall R knee mobility, strength and stability. If pt does not improve, i strongly recommend further imaging (MRI) / second opinion/ surgical consult might be needed. Physical Therapy Plan Frequency and Duration Frequency of Treatment 2x/wk x4, 1x/wkx4 Duration of Treatment 8 weeks Plan of Care Start Date 09/30/20 Plan of Care End Date 11/29/20 Therapeutic Interventions Therapeutic Interventions Aquatic Therapy,Balance Training,Gait Training,Home Exercise Program,Joint Mobilizations,Manual Therapy, Neuromuscular Re-education, Patient/Caregiver Education, Self-Care/Home Management,Soft Tissue Mobilization,Taping, Therapeutic Activities, Therapeutic Exercises Modalities Biofeedback,Cold Pack/Ice Massage,Electric Stimulation, Hot Packs,Infrared Therapy, Iontophoresis,Traction- Mechanical,Ultrasound Next Visit Focus/Plan Next Note Type Treatment Note Next Visit Plan STM at HS, quad lateral traction for R knee knee ROM ex as shyann Plan of Care Dates Plan of Care Start Date 09/30/20 Plan of Care End Date 11/29/20 Electronically Signed by: Trevor Reeves PT 09/30/20 1190 Please Sign and Return: I have reviewed this Plan of Care and certify that the skilled therapy services above are required to meet the patient?s needs. Physician Signature Date Printed Name and Credentials Clinical Instructor Signature Printed Name and Credentials
--- NOTE | 2020-10-04 08:18 | PT.OTN ---
Current Diagnoses Other chronic pain (10/04/20) Pain in right knee (10/04/20) Physical Therapy Treatment Note PT-OP-A Visit Information Start: 09/30/20 12:18 Freq: Status: Active Protocol: Document 10/04/20 07:32 SP (Rec: 10/04/20 08:33 SP [id number]) Out-Patient Physical Therapy Visit Information Visit Information Visit Type Treatment Note Visit Start Time 07:32 Visit Stop Time 08:18 Total Visit Minutes 46 Visit Number 2/ Number of POWER LINE INSTALLER Visits 1 Evaluation Information Evaluation Date 09/30/20 PT-OP-B Current Condition Start: 09/30/20 12:18 Freq: Status: Active Protocol: Document 09/30/20 12:18 HH (Rec: 09/30/20 12:43 HH [email or web address]) Current Condition History of Current Condition Onset Date 3 weeks ago Current Complaints subacute R knee pain, difficulty in walking History of Current Condition Yassine is a retired 59yo male here for his new onset of R knee pain started 3 weeks ago. He stated he planted awkwardly with his R knee in a twisted position after coming off from the ladder which gave immediate sharp pain. ( unable to identify exact painful location) Since then, pt has significant difficulty in walking, climbing stair and bending/ twisting his knee. He has to walk with knee straight at this point and also c/o episodes of clicking and giving out. He has been wearing a soft knee brace to provide stability. pt stated he had been dealing with chronic knee pain for years but this is something new and worse than before. He also stated he has been having numbness and tingling at his whole lateral aspect of R leg for a few years. Prior Treatments and Tests x-ray @R knee at 09/27/20 IMPRESSION: No fracture or dislocation. Mild tricompartmental knee joint degeneration. Treatment Goals Patient/Caregiver Goals 1. to regain his full knee ROM and strength 2. 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 PT-OP-C Subjective Start: 09/30/20 12:18 Freq: Status: Active Protocol: Document 10/04/20 07:32 SP (Rec: 10/04/20 08:33 SP [id number]) OP-PT Subjective Patient Comments Patient Comments Pt arrives w/ donned R knee sleeve, stated does feel little better since eval. States has flare up pain in R knee about 1-2 x/yr and doesn' t keep up with ex learned in past. Pain mainly posterior R knee and shocking pain natividad when twists, like when getting up on table today and gets burning down R lateral lower leg. Pt reports does see associate professor of law for pelvic floor pain weekly and uses CBD oral and ointment recommended by physician for pain along with ice PRN. PT-OP-F Manual Assessment Start: 09/30/20 12:18 Freq: Status: Active Protocol: Document 09/30/20 12:18 HH (Rec: 09/30/20 12:43 HH [email or web address]) Manual Assessments Soft Tissue Assessment Soft Tissue Mobility Assessment significant hypertoncity at distal hamstrings slight tenderness at distal patella tendon Joint Mobility Assessment Joint Mobility Assessment significant muscle guarding with PROM at R knee PT-OP-G Mobility & Gait Start: 09/30/20 12:18 Freq: Status: Active Protocol: Document 09/30/20 12:18 HH (Rec: 09/30/20 12:43 HH [email or web address]) OP Gait Assessment Gait Deviations General Gait Pattern Antalgic,Decreased Stride Length,Decreased Feet Clearance Factors Limiting Gait Function Factors Limiting Gait Function Decreased Activity Tolerance, Decreased Sensation,Decreased Strength,Limited Range of Motion,Pain,Poor Balance,Poor Safety Awareness Comments Gait Comments pt amb with a stiff knee pattern : decreased knee flexion during swing phase and push off during preswing. PT-OP-K Range of Motion Start: 09/30/20 12:18 Freq: Status: Active Protocol: Document 09/30/20 12:18 HH (Rec: 09/30/20 12:43 HH [email or web address]) Knee Goniometric Range of Motion Knee Right Knee ROM WFL No Patient Position Supine Flexion Active (degrees) 122 Extension Active (degrees) 0 Comments significant pain at R knee with end range flexion. Left Knee ROM WFL Yes Flexion Active (degrees) 135 Extension Active (degrees) 0 PT-OP-L Special Tests Start: 09/30/20 12:18 Freq: Status: Active Protocol: Document 09/30/20 12:18 HH (Rec: 09/30/20 12:43 HH [email or web address]) Special Tests Knee Special Tests Anterior Draw Test Results -ve PETE Test Results -ve Jared Test Test Results +Ve r Comments R lateral knee pain with knee valgus force with external rotation at R tibia relief with lateral knee traction Apley's Compression Test Results -ve Varus- 0 Degrees Test Results -ve Valgus- 25 Degrees Test Results -ve Varus- 25 Degrees Test Results -ve Valgus- 0 Degrees Test Results -ve PT-OP-M Strength Start: 09/30/20 12:18 Freq: Status: Active Protocol: Document 09/30/20 12:18 (Rec: 09/30/20 12:43 [email or web address]) Hip Strength Hip Manual Muscle Testing Right Flexion (L2) 4+ Good+ Extension (S1) 4+ Good+ Abduction 4+ Good+ Adduction 4+ Good+ Left Flexion (L2) 5 Normal Extension (S1) 5 Normal Abduction 5 Normal Adduction 5 Normal Knee Strength Knee Manual Muscle Testing Right Flexion (S2) 3+ Fair+ Extension (L3) 3+ Fair+ Comments significant pain against resistance Left Flexion (S2) 5 Normal Extension (L3) 5 Normal PT-OP-Q Treatments Start: 09/30/20 12:18 Freq: Status: Active Protocol: Document 10/04/20 07:32 SP (Rec: 10/04/20 08:33 SP [id number]) Therapeutic Exercises Supine Exercises gastroc/ peroneal stretch Supine Exercise Name DF w/ IV ankle- added to HEP Side right Equipment Used towel Reps/Minutes x10 reps Comments painfree range w/ comfort stretch - good response SAQ Side right Equipment Used small foam roller Reps/Minutes x8 Comments stopped due to burning irritation lateral lower leg HS stretch Supine Exercise Name added to HEP Side right Reps/Minutes 2 reps x10 to tolerance range not irritation Comments grasp behind thigh knee ext w/ ankle pump Sidelying Exercises peroneal nerve glide Side right Resistance AROM Reps/Minutes x10 rep Comments good pain free movement stretch rolling stick Sidelying Exercise Name calf, HS, quad Side right Equipment Used rolling stick Reps/Minutes 1 min total Comments good feedback response- time/ pressure to tolerant benefits Manual Therapy Treatment Soft Tissue Mobilization STMs Body Location R distal HS, prox gastroc- prone; quad, ITB Mobilization Type Cross-Friction,Instrument Assisted,Rolling,Strumming, Other Intensity/Depth Moderate Comments manual and instrument rolling pin, education on self in sitting PT-OP-T Assessment and Plan Start: 09/30/20 12:18 Freq: Status: Active Protocol: Document 10/04/20 07:32 SP (Rec: 10/04/20 08:33 SP [id number]) Physical Therapy Assessment Goals balance Impairment unable to stand on RLE Short Term Goal (STG) pt will be able to show improved balance and stability to stand on R LE >10 seconds. STG Duration 4 weeks Plate Stacker Goal (LTG) pt will be able to show improved balance and stability in order for him to climb ladder to work on his boat again safely LTG Duration 8 weeks gait Impairment antalgic gait Prison Goal (LTG) pt will be able to amb without the use of knee brace and show normalized gait (knee flexion during swing phaese) LTG Duration 8 weeks ROM Impairment limited R knee flexion Short Term Goal (STG) pt will be able to show increased R knee ROM up to 135 degrees without increase in pain STG Duration 4 weeks Prison Goal (LTG) pt will be able to actively flex his R knee > 90 degrees to climb stairs without discomfort LTG Duration 8 weeks LEFS Impairment pt scores 21 on LEFS Short Term Goal (STG) pt will score >35 on LEFS to show improved functional mobility and strength STG Duration 4 weeks Plate Stacker Goal (LTG) pt will score >45 on LEFS to show improved functional mobility and strength LTG Duration 8 weeks Assessment Summary Assessment Tx focused on ROM, flexibility to R knee with good response, my R knee feels less tight post manual and instruction on self use of rolling pin and self stretching initiation HEP today. Trialed supine SAQ ROM and HS stretch with strap with increased irritation down lateral lower leg, improved grasp behind thigh and education on knee ext range find light stretch with small range ankle pump with good feedback and carryover seated peroneal nerve glide mobility. Physical Therapy Plan Frequency and Duration Frequency of Treatment 2x/wk x4, 1x/wkx4 Duration of Treatment 8 weeks Plan of Care Start Date 09/30/20 Plan of Care End Date 11/29/20 Therapeutic Interventions Therapeutic Interventions Aquatic Therapy,Balance Training,Gait Training,Home Exercise Program,Joint Mobilizations,Manual Therapy, Neuromuscular Re-education, Patient/Caregiver Education, Self-Care/Home Management,Soft Tissue Mobilization,Taping, Therapeutic Activities, Therapeutic Exercises Modalities Biofeedback,Cold Pack/Ice Massage,Electric Stimulation, Hot Packs,Infrared Therapy, Iontophoresis,Traction- Mechanical,Ultrasound Next Visit Focus/Plan Next Note Type Treatment Note Next Visit Plan Assess response to manual and instruction self STMs, stretching ROM R LE. Continue POC: STM at HS, quad knee ROM ex as shyann Next tx add: lateral traction for R knee
--- NOTE | 2020-10-07 16:01 | PT.OTN ---
Current Diagnoses Other chronic pain (10/07/20) Pain in right knee (10/07/20) Physical Therapy Treatment Note PT-OP-A Visit Information Start: 09/30/20 12:18 Freq: Status: Active Protocol: Document 10/07/20 15:15 HH (Rec: 10/07/20 16:01 [id number]) Out-Patient Physical Therapy Visit Information Visit Information Visit Type Treatment Note Visit Start Time 15:18 Visit Stop Time 16:00 Total Visit Minutes 42 Visit Number 3/ Number of FARM LOAN REPRESENTATIVE Visits 0 PT-OP-B Current Condition Start: 09/30/20 12:18 Freq: Status: Active Protocol: Document 09/30/20 12:18 HH (Rec: 09/30/20 12:43 [email or web address]) Current Condition History of Current Condition Onset Date 3 weeks ago Current Complaints subacute R knee pain, difficulty in walking History of Current Condition Yassine is a retired 59yo male here for his new onset of R knee pain started 3 weeks ago. He stated he planted awkwardly with his R knee in a twisted position after coming off from the ladder which gave immediate sharp pain. ( unable to identify exact painful location) Since then, pt has significant difficulty in walking, climbing stair and bending/ twisting his knee. He has to walk with knee straight at this point and also c/o episodes of clicking and giving out. He has been wearing a soft knee brace to provide stability. pt stated he had been dealing with chronic knee pain for years but this is something new and worse than before. He also stated he has been having numbness and tingling at his whole lateral aspect of R leg for a few years. Prior Treatments and Tests x-ray @R knee at 09/27/20 IMPRESSION: No fracture or dislocation. Mild tricompartmental knee joint degeneration. Treatment Goals Patient/Caregiver Goals 1. to regain his full knee ROM and strength 2. 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 PT-OP-C Subjective Start: 09/30/20 12:18 Freq: Status: Active Protocol: Document 10/07/20 15:15 HH (Rec: 10/07/20 16:01 [id number]) OP-PT Subjective Patient Comments Patient Comments Im feeling a little better. That sharp pain is not as often. Patient Reported Progress Improving PT-OP-F Manual Assessment Start: 09/30/20 12:18 Freq: Status: Active Protocol: Document 09/30/20 12:18 HH (Rec: 09/30/20 12:43 HH [email or web address]) Manual Assessments Soft Tissue Assessment Soft Tissue Mobility Assessment significant hypertoncity at distal hamstrings slight tenderness at distal patella tendon Joint Mobility Assessment Joint Mobility Assessment significant muscle guarding with PROM at R knee PT-OP-G Mobility & Gait Start: 09/30/20 12:18 Freq: Status: Active Protocol: Document 09/30/20 12:18 HH (Rec: 09/30/20 12:43 [email or web address]) OP Gait Assessment Gait Deviations General Gait Pattern Antalgic,Decreased Stride Length,Decreased Feet Clearance Factors Limiting Gait Function Factors Limiting Gait Function Decreased Activity Tolerance, Decreased Sensation,Decreased Strength,Limited Range of Motion,Pain,Poor Balance,Poor Safety Awareness Comments Gait Comments pt amb with a stiff knee pattern : decreased knee flexion during swing phase and push off during preswing. PT-OP-K Range of Motion Start: 09/30/20 12:18 Freq: Status: Active Protocol: Document 09/30/20 12:18 HH (Rec: 09/30/20 12:43 [email or web address]) Knee Goniometric Range of Motion Knee Right Knee ROM WFL No Patient Position Supine Flexion Active (degrees) 122 Extension Active (degrees) 0 Comments significant pain at R knee with end range flexion. Left Knee ROM WFL Yes Flexion Active (degrees) 135 Extension Active (degrees) 0 PT-OP-L Special Tests Start: 09/30/20 12:18 Freq: Status: Active Protocol: Document 09/30/20 12:18 HH (Rec: 09/30/20 12:43 [email or web address]) Special Tests Knee Special Tests Anterior Draw Test Results -ve PETE Test Results -ve Jared Test Test Results +Ve r Comments R lateral knee pain with knee valgus force with external rotation at R tibia relief with lateral knee traction Apley's Compression Test Results -ve Varus- 0 Degrees Test Results -ve Valgus- 25 Degrees Test Results -ve Varus- 25 Degrees Test Results -ve Valgus- 0 Degrees Test Results -ve PT-OP-M Strength Start: 09/30/20 12:18 Freq: Status: Active Protocol: Document 09/30/20 12:18 HH (Rec: 09/30/20 12:43 [email or web address]) Hip Strength Hip Manual Muscle Testing Right Flexion (L2) 4+ Good+ Extension (S1) 4+ Good+ Abduction 4+ Good+ Adduction 4+ Good+ Left Flexion (L2) 5 Normal Extension (S1) 5 Normal Abduction 5 Normal Adduction 5 Normal Knee Strength Knee Manual Muscle Testing Right Flexion (S2) 3+ Fair+ Extension (L3) 3+ Fair+ Comments significant pain against resistance Left Flexion (S2) 5 Normal Extension (L3) 5 Normal PT-OP-Q Treatments Start: 09/30/20 12:18 Freq: Status: Active Protocol: Document 10/07/20 15:15 HH (Rec: 10/07/20 16:01 [id number]) Cardio Equipment Bicycle (Upright) Duration (Minutes) 8 Resistance 5 Seat Position 6 Other pain with flexion but subside after. Therapeutic Exercises Sidelying Exercises peroneal nerve glide Side right Resistance AROM Reps/Minutes x10 rep Comments good pain free movement stretch Sitting Exercises knee flexion Equipment Used level 2 band Reps/Minutes 12 x 2 Comments no discomfort LAQ Side right Reps/Minutes 8 x2 Manual Therapy Treatment Soft Tissue Mobilization STMs Body Location R distal HS, prox gastroc- prone; quad, ITB Mobilization Type Cross-Friction,Instrument Assisted,Rolling,Strumming, Other Intensity/Depth Moderate Comments manual and instrument rolling pin, education on self in sitting Joint Mobilizations R lateral knee Direction traction laterally Grade III Body Position Sidelying Comments half foam roller underneath medial joint line. PT-OP-T Assessment and Plan Start: 09/30/20 12:18 Freq: Status: Active Protocol: Document 10/07/20 15:15 HH (Rec: 10/07/20 16:01 [id number]) Physical Therapy Assessment Goals balance Impairment unable to stand on RLE Short Term Goal (STG) pt will be able to show improved balance and stability to stand on R LE >10 seconds. STG Duration 4 weeks Fpc Goal (LTG) pt will be able to show improved balance and stability in order for him to climb ladder to work on his boat again safely LTG Duration 8 weeks gait Impairment antalgic gait Fpc Goal (LTG) pt will be able to amb without the use of knee brace and show normalized gait (knee flexion during swing phaese) LTG Duration 8 weeks ROM Impairment limited R knee flexion Short Term Goal (STG) pt will be able to show increased R knee ROM up to 135 degrees without increase in pain STG Duration 4 weeks Fpc Goal (LTG) pt will be able to actively flex his R knee > 90 degrees to climb stairs without discomfort LTG Duration 8 weeks LEFS Impairment pt scores 21 on LEFS Short Term Goal (STG) pt will score >35 on LEFS to show improved functional mobility and strength STG Duration 4 weeks Fpc Goal (LTG) pt will score >45 on LEFS to show improved functional mobility and strength LTG Duration 8 weeks Assessment Summary Assessment Pt walked in with slight improved antalgic gait but still very cautious during turns. He was able to shyann light strnegthening ex and biking today. He stated less tightness at the end of session. Physical Therapy Plan Frequency and Duration Frequency of Treatment 2x/wk x4, 1x/wkx4 Duration of Treatment 8 weeks Plan of Care Start Date 09/30/20 Plan of Care End Date 11/29/20 Therapeutic Interventions Therapeutic Interventions Aquatic Therapy,Balance Training,Gait Training,Home Exercise Program,Joint Mobilizations,Manual Therapy, Neuromuscular Re-education, Patient/Caregiver Education, Self-Care/Home Management,Soft Tissue Mobilization,Taping, Therapeutic Activities, Therapeutic Exercises Modalities Biofeedback,Cold Pack/Ice Massage,Electric Stimulation, Hot Packs,Infrared Therapy, Iontophoresis,Traction- Mechanical,Ultrasound Next Visit Focus/Plan Next Note Type Treatment Note Next Visit Plan Assess response to manual and instruction self STMs, stretching ROM R LE. Continue POC: STM at HS, quad knee ROM ex as shyann Next tx add: lateral traction for R knee
--- NOTE | 2020-10-12 15:31 | PT.OTN ---
Current Diagnoses Other chronic pain (10/12/20) Pain in right knee (10/12/20) Physical Therapy Treatment Note PT-OP-A Visit Information Start: 09/30/20 12:18 Freq: Status: Active Protocol: Document 10/12/20 14:30 AW (Rec: 10/12/20 14:35 AW [id number]) Out-Patient Physical Therapy Visit Information Visit Information Visit Type Treatment Note Visit Start Time 13:45 Visit Stop Time 14:30 Total Visit Minutes 45 Visit Number Evaluation Information Evaluation Date 09/30/20 PT-OP-B Current Condition Start: 09/30/20 12:18 Freq: Status: Active Protocol: Document 09/30/20 12:18 HH (Rec: 09/30/20 12:43 HH [email or web address]) Current Condition History of Current Condition Onset Date 3 weeks ago Current Complaints subacute R knee pain, difficulty in walking History of Current Condition Yassine is a retired 59yo male here for his new onset of R knee pain started 3 weeks ago. He stated he planted awkwardly with his R knee in a twisted position after coming off from the ladder which gave immediate sharp pain. ( unable to identify exact painful location) Since then, pt has significant difficulty in walking, climbing stair and bending/ twisting his knee. He has to walk with knee straight at this point and also c/o episodes of clicking and giving out. He has been wearing a soft knee brace to provide stability. pt stated he had been dealing with chronic knee pain for years but this is something new and worse than before. He also stated he has been having numbness and tingling at his whole lateral aspect of R leg for a few years. Prior Treatments and Tests x-ray @R knee at 09/27/20 IMPRESSION: No fracture or dislocation. Mild tricompartmental knee joint degeneration. Treatment Goals Patient/Caregiver Goals 1. to regain his full knee ROM and strength 2. 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 PT-OP-C Subjective Start: 09/30/20 12:18 Freq: Status: Active Protocol: Document 10/12/20 14:30 AW (Rec: 10/12/20 14:35 AW [id number]) OP-PT Subjective Patient Comments Patient Comments I felt better after last treatment but I fell in my house last weekend and landed on my knee so that was short- lived. PT-OP-F Manual Assessment Start: 09/30/20 12:18 Freq: Status: Active Protocol: Document 09/30/20 12:18 HH (Rec: 09/30/20 12:43 HH [email or web address]) Manual Assessments Soft Tissue Assessment Soft Tissue Mobility Assessment significant hypertoncity at distal hamstrings slight tenderness at distal patella tendon Joint Mobility Assessment Joint Mobility Assessment significant muscle guarding with PROM at R knee PT-OP-G Mobility & Gait Start: 09/30/20 12:18 Freq: Status: Active Protocol: Document 09/30/20 12:18 HH (Rec: 09/30/20 12:43 [email or web address]) OP Gait Assessment Gait Deviations General Gait Pattern Antalgic,Decreased Stride Length,Decreased Feet Clearance Factors Limiting Gait Function Factors Limiting Gait Function Decreased Activity Tolerance, Decreased Sensation,Decreased Strength,Limited Range of Motion,Pain,Poor Balance,Poor Safety Awareness Comments Gait Comments pt amb with a stiff knee pattern : decreased knee flexion during swing phase and push off during preswing. PT-OP-K Range of Motion Start: 09/30/20 12:18 Freq: Status: Active Protocol: Document 09/30/20 12:18 HH (Rec: 09/30/20 12:43 [email or web address]) Knee Goniometric Range of Motion Knee Right Knee ROM WFL No Patient Position Supine Flexion Active (degrees) 122 Extension Active (degrees) 0 Comments significant pain at R knee with end range flexion. Left Knee ROM WFL Yes Flexion Active (degrees) 135 Extension Active (degrees) 0 PT-OP-L Special Tests Start: 09/30/20 12:18 Freq: Status: Active Protocol: Document 09/30/20 12:18 HH (Rec: 09/30/20 12:43 [email or web address]) Special Tests Knee Special Tests Anterior Draw Test Results -ve PETE Test Results -ve Jared Test Test Results +Ve r Comments R lateral knee pain with knee valgus force with external rotation at R tibia relief with lateral knee traction Apley's Compression Test Results -ve Varus- 0 Degrees Test Results -ve Valgus- 25 Degrees Test Results -ve Varus- 25 Degrees Test Results -ve Valgus- 0 Degrees Test Results -ve PT-OP-M Strength Start: 09/30/20 12:18 Freq: Status: Active Protocol: Document 09/30/20 12:18 HH (Rec: 09/30/20 12:43 HH [email or web address]) Hip Strength Hip Manual Muscle Testing Right Flexion (L2) 4+ Good+ Extension (S1) 4+ Good+ Abduction 4+ Good+ Adduction 4+ Good+ Left Flexion (L2) 5 Normal Extension (S1) 5 Normal Abduction 5 Normal Adduction 5 Normal Knee Strength Knee Manual Muscle Testing Right Flexion (S2) 3+ Fair+ Extension (L3) 3+ Fair+ Comments significant pain against resistance Left Flexion (S2) 5 Normal Extension (L3) 5 Normal PT-OP-Q Treatments Start: 09/30/20 12:18 Freq: Status: Active Protocol: Document 10/12/20 14:30 AW (Rec: 10/12/20 14:35 AW [id number]) Cardio Equipment Bicycle (Upright) Duration (Minutes) 8 Resistance 5 Seat Position 6 Other denied pain Therapeutic Exercises Supine Exercises HS stretch Side right Comments knee ext w/ ankle pump; also PT-assisted Sidelying Exercises peroneal nerve glide Side right Resistance AROM Reps/Minutes x10 rep Comments good pain free movement stretch Sitting Exercises knee flexion Equipment Used level 2 band Reps/Minutes 12 x 2 Comments no discomfort LAQ Side right Resistance manual Reps/Minutes 8 x2 Comments good quad contraction vs resistance Standing Exercises TKE Standing Exercise Name TKE Side right Resistance level 1 Equipment Used TB Reps/Minutes 10 x 2 Comments encouraged weight shift onto RLE during active extension; Manual Therapy Treatment Soft Tissue Mobilization STMs Body Location R distal HS, prox gastroc- prone; quad, ITB Mobilization Type Cross-Friction,Instrument Assisted,Rolling,Strumming, Other Intensity/Depth Moderate Comments manual and instrument rolling pin, pt states he forgets to perform at home Joint Mobilizations R lateral knee Direction traction laterally Grade III Body Position Sidelying Comments half foam roller underneath medial joint line. PT-OP-T Assessment and Plan Start: 09/30/20 12:18 Freq: Status: Active Protocol: Document 10/12/20 14:30 AW (Rec: 10/12/20 15:29 AW [email or web address]) Physical Therapy Assessment Goals balance Impairment unable to stand on RLE Short Term Goal (STG) pt will be able to show improved balance and stability to stand on R LE >10 seconds. STG Duration 4 weeks Sled Maker Goal (LTG) pt will be able to show improved balance and stability in order for him to climb ladder to work on his boat again safely LTG Duration 8 weeks gait Impairment antalgic gait Retirement Goal (LTG) pt will be able to amb without the use of knee brace and show normalized gait (knee flexion during swing phaese) LTG Duration 8 weeks ROM Impairment limited R knee flexion Short Term Goal (STG) pt will be able to show increased R knee ROM up to 135 degrees without increase in pain STG Duration 4 weeks Retirement Goal (LTG) pt will be able to actively flex his R knee > 90 degrees to climb stairs without discomfort LTG Duration 8 weeks LEFS Impairment pt scores 21 on LEFS Short Term Goal (STG) pt will score >35 on LEFS to show improved functional mobility and strength STG Duration 4 weeks Retirement Goal (LTG) pt will score >45 on LEFS to show improved functional mobility and strength LTG Duration 8 weeks Assessment Summary Assessment Pt improved after last session but fell at home, re-injuring his knee. He walks with decreased RLE knee flexion and indicates pain with last few degrees of knee extension. Physical Therapy Plan Frequency and Duration Frequency of Treatment 2x/wk x4, 1x/wkx4 Duration of Treatment 8 weeks Plan of Care Start Date 09/30/20 Plan of Care End Date 11/29/20 Therapeutic Interventions Therapeutic Interventions Aquatic Therapy,Balance Training,Gait Training,Home Exercise Program,Joint Mobilizations,Manual Therapy, Neuromuscular Re-education, Patient/Caregiver Education, Self-Care/Home Management,Soft Tissue Mobilization,Taping, Therapeutic Activities, Therapeutic Exercises Modalities Biofeedback,Cold Pack/Ice Massage,Electric Stimulation, Hot Packs,Infrared Therapy, Iontophoresis,Traction- Mechanical,Ultrasound Next Visit Focus/Plan Next Note Type Treatment Note Next Visit Plan Assess response to manual and instruction self STMs, stretching ROM R LE. Continue POC: STM at HS, quad knee ROM ex as shyann Next tx add: lateral traction for R knee
--- NOTE | 2020-10-14 08:50 | PT.OTN ---
Current Diagnoses Other chronic pain (10/14/20) Pain in right knee (10/14/20) Physical Therapy Treatment Note PT-OP-A Visit Information Start: 09/30/20 12:18 Freq: Status: Active Protocol: Document 10/14/20 08:43 OF (Rec: 10/14/20 08:50 OF [email or web address]) Out-Patient Physical Therapy Visit Information Visit Information Visit Type Treatment Note Visit Start Time 08:00 Visit Stop Time 08:42 Total Visit Minutes 42 Visit Number PT-OP-B Current Condition Start: 09/30/20 12:18 Freq: Status: Active Protocol: Document 09/30/20 12:18 HH (Rec: 09/30/20 12:43 HH [email or web address]) Current Condition History of Current Condition Onset Date 3 weeks ago Current Complaints subacute R knee pain, difficulty in walking History of Current Condition Yassine is a retired 59yo male here for his new onset of R knee pain started 3 weeks ago. He stated he planted awkwardly with his R knee in a twisted position after coming off from the ladder which gave immediate sharp pain. ( unable to identify exact painful location) Since then, pt has significant difficulty in walking, climbing stair and bending/ twisting his knee. He has to walk with knee straight at this point and also c/o episodes of clicking and giving out. He has been wearing a soft knee brace to provide stability. pt stated he had been dealing with chronic knee pain for years but this is something new and worse than before. He also stated he has been having numbness and tingling at his whole lateral aspect of R leg for a few years. Prior Treatments and Tests x-ray @R knee at 09/27/20 IMPRESSION: No fracture or dislocation. Mild tricompartmental knee joint degeneration. Treatment Goals Patient/Caregiver Goals 1. to regain his full knee ROM and strength 2. 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 PT-OP-C Subjective Start: 09/30/20 12:18 Freq: Status: Active Protocol: Document 10/14/20 08:43 OF (Rec: 10/14/20 08:50 OF [email or web address]) OP-PT Subjective Patient Comments Patient Comments I was sore after last treatment, then better, then my dog ran into my knee and now I am worse again Patient Reported Progress Worse OP-PT Pain Assessment Pain Assessment Grid Paper Pain Assessment Grid Completed Yes: 08/20 R LE PT-OP-F Manual Assessment Start: 09/30/20 12:18 Freq: Status: Active Protocol: Document 09/30/20 12:18 HH (Rec: 09/30/20 12:43 [email or web address]) Manual Assessments Soft Tissue Assessment Soft Tissue Mobility Assessment significant hypertoncity at distal hamstrings slight tenderness at distal patella tendon Joint Mobility Assessment Joint Mobility Assessment significant muscle guarding with PROM at R knee PT-OP-G Mobility & Gait Start: 09/30/20 12:18 Freq: Status: Active Protocol: Document 09/30/20 12:18 HH (Rec: 09/30/20 12:43 [email or web address]) OP Gait Assessment Gait Deviations General Gait Pattern Antalgic,Decreased Stride Length,Decreased Feet Clearance Factors Limiting Gait Function Factors Limiting Gait Function Decreased Activity Tolerance, Decreased Sensation,Decreased Strength,Limited Range of Motion,Pain,Poor Balance,Poor Safety Awareness Comments Gait Comments pt amb with a stiff knee pattern : decreased knee flexion during swing phase and push off during preswing. PT-OP-K Range of Motion Start: 09/30/20 12:18 Freq: Status: Active Protocol: Document 09/30/20 12:18 HH (Rec: 09/30/20 12:43 [email or web address]) Knee Goniometric Range of Motion Knee Right Knee ROM WFL No Patient Position Supine Flexion Active (degrees) 122 Extension Active (degrees) 0 Comments significant pain at R knee with end range flexion. Left Knee ROM WFL Yes Flexion Active (degrees) 135 Extension Active (degrees) 0 PT-OP-L Special Tests Start: 09/30/20 12:18 Freq: Status: Active Protocol: Document 09/30/20 12:18 HH (Rec: 09/30/20 12:43 [email or web address]) Special Tests Knee Special Tests Anterior Draw Test Results -ve PETE Test Results -ve Jared Test Test Results +Ve r Comments R lateral knee pain with knee valgus force with external rotation at R tibia relief with lateral knee traction Apley's Compression Test Results -ve Varus- 0 Degrees Test Results -ve Valgus- 25 Degrees Test Results -ve Varus- 25 Degrees Test Results -ve Valgus- 0 Degrees Test Results -ve PT-OP-M Strength Start: 09/30/20 12:18 Freq: Status: Active Protocol: Document 09/30/20 12:18 HH (Rec: 09/30/20 12:43 HH [email or web address]) Hip Strength Hip Manual Muscle Testing Right Flexion (L2) 4+ Good+ Extension (S1) 4+ Good+ Abduction 4+ Good+ Adduction 4+ Good+ Left Flexion (L2) 5 Normal Extension (S1) 5 Normal Abduction 5 Normal Adduction 5 Normal Knee Strength Knee Manual Muscle Testing Right Flexion (S2) 3+ Fair+ Extension (L3) 3+ Fair+ Comments significant pain against resistance Left Flexion (S2) 5 Normal Extension (L3) 5 Normal PT-OP-Q Treatments Start: 09/30/20 12:18 Freq: Status: Active Protocol: Document 10/14/20 08:43 OF (Rec: 10/14/20 08:50 OF [email or web address]) Cardio Equipment Recumbent Bicycle Duration (Minutes) 5 Resistance 5 Seat Position 11 Therapeutic Exercises Supine Exercises gastroc/ peroneal stretch Side bilateral Reps/Minutes x10 reps Comments painfree range w/ comfort stretch - good response Sitting Exercises knee flexion Equipment Used 5lb Reps/Minutes 12 x 2 Comments no discomfort LAQ Side bilateral Resistance 5# Standing Exercises 3 Standing Exercise Name Knee flexion, HS curls Side right Resistance 5# Reps/Minutes 3x15 Manual Therapy Treatment Soft Tissue Mobilization STMs Mobilization Type Oscillations,Strumming Intensity/Depth Moderate Body Position Hooklying Comments R lateral HS, pt reports improved pain after stm Joint Mobilizations R lateral knee Grade III Body Position Sitting Comments half foam roller underneath medial joint line. Fibular head A/P, lateral distractions , distraction. All improve symptoms. Self-Care/Home Management Treatment Education Patient Education Home Exercise Program Other Education Pt advised to limit high impact activities, use caution with in home mobility as he has fallen and collided with dog, both limit his progress per report. HEP reviewed for LAQ, TKE, distraction with assist from , HS curls PT-OP-T Assessment and Plan Start: 09/30/20 12:18 Freq: Status: Active Protocol: Document 10/14/20 08:43 OF (Rec: 10/14/20 08:50 OF [email or web address]) Physical Therapy Assessment Rehab Potential Rehabilitation Potential Good Evaluation Complexity Number of Personal Factors/Comorbidities 0 Number of Body Systems Impaired 1-2 Clinical Presentation at Evaluation Stable Impairments Impairments Balance,Gait,Pain,ROM,Strength Progress Towards Goals Progress Towards Goals Slow Progress due to Noncompliance Progress Comments Pt has limited HEP performance Assessment Summary Assessment Pt improves after tx, manual therapy improving symptoms. He has good potential to regain ROM and strength, he may benefit from more frequent HEP performance. Physical Therapy Plan Frequency and Duration Frequency of Treatment 2x/wk x4, 1x/wkx4 Duration of Treatment 8 weeks Plan of Care Start Date 09/30/20 Plan of Care End Date 11/29/20 Next Visit Focus/Plan Next Note Type Treatment Note Next Visit Plan re assess HEP performance, progress knee ext/flex strengthening. Pt has limited tolerance for closed chain strengthening
--- NOTE | 2020-10-17 12:51 | PT.OTN ---
Current Diagnoses Other chronic pain (10/17/20) Pain in right knee (10/17/20) Physical Therapy Treatment Note PT-OP-A Visit Information Start: 09/30/20 12:18 Freq: Status: Active Protocol: Document 10/17/20 09:37 OF (Rec: 10/17/20 12:49 OF [email or web address]) Out-Patient Physical Therapy Visit Information Visit Information Visit Type Treatment Note Visit Start Time 09:00 Visit Stop Time 09:37 Total Visit Minutes 37 Visit Number Evaluation Information Evaluation Date 09/30/20 PT-OP-B Current Condition Start: 09/30/20 12:18 Freq: Status: Active Protocol: Document 09/30/20 12:18 HH (Rec: 09/30/20 12:43 HH [email or web address]) Current Condition History of Current Condition Onset Date 3 weeks ago Current Complaints subacute R knee pain, difficulty in walking History of Current Condition Yassine is a retired 59yo male here for his new onset of R knee pain started 3 weeks ago. He stated he planted awkwardly with his R knee in a twisted position after coming off from the ladder which gave immediate sharp pain. ( unable to identify exact painful location) Since then, pt has significant difficulty in walking, climbing stair and bending/ twisting his knee. He has to walk with knee straight at this point and also c/o episodes of clicking and giving out. He has been wearing a soft knee brace to provide stability. pt stated he had been dealing with chronic knee pain for years but this is something new and worse than before. He also stated he has been having numbness and tingling at his whole lateral aspect of R leg for a few years. Prior Treatments and Tests x-ray @R knee at 09/27/20 IMPRESSION: No fracture or dislocation. Mild tricompartmental knee joint degeneration. Treatment Goals Patient/Caregiver Goals 1. to regain his full knee ROM and strength 2. 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 PT-OP-C Subjective Start: 09/30/20 12:18 Freq: Status: Active Protocol: Document 10/17/20 09:37 OF (Rec: 10/17/20 12:49 OF [email or web address]) OP-PT Subjective Patient Comments Patient Comments I was sore after last treatment, then better, I did some zuly that aggravated my knee. Patient Reported Progress Same OP-PT Pain Assessment Pain Assessment Grid Paper Pain Assessment Grid Completed Yes: 4/10 Location R knee Scale Used Numeric (0 - 10) Description Aching Frequency Frequent Pain Aggravating Factors Position,ADL's,Activity, Exercise,Standing,Walking, Stair Climbing Pain Alleviating Factors Inactivity,Lying Supine PT-OP-F Manual Assessment Start: 09/30/20 12:18 Freq: Status: Active Protocol: Document 09/30/20 12:18 HH (Rec: 09/30/20 12:43 [email or web address]) Manual Assessments Soft Tissue Assessment Soft Tissue Mobility Assessment significant hypertoncity at distal hamstrings slight tenderness at distal patella tendon Joint Mobility Assessment Joint Mobility Assessment significant muscle guarding with PROM at R knee PT-OP-G Mobility & Gait Start: 09/30/20 12:18 Freq: Status: Active Protocol: Document 09/30/20 12:18 HH (Rec: 09/30/20 12:43 [email or web address]) OP Gait Assessment Gait Deviations General Gait Pattern Antalgic,Decreased Stride Length,Decreased Feet Clearance Factors Limiting Gait Function Factors Limiting Gait Function Decreased Activity Tolerance, Decreased Sensation,Decreased Strength,Limited Range of Motion,Pain,Poor Balance,Poor Safety Awareness Comments Gait Comments pt amb with a stiff knee pattern : decreased knee flexion during swing phase and push off during preswing. PT-OP-K Range of Motion Start: 09/30/20 12:18 Freq: Status: Active Protocol: Document 09/30/20 12:18 HH (Rec: 09/30/20 12:43 [email or web address]) Knee Goniometric Range of Motion Knee Right Knee ROM WFL No Patient Position Supine Flexion Active (degrees) 122 Extension Active (degrees) 0 Comments significant pain at R knee with end range flexion. Left Knee ROM WFL Yes Flexion Active (degrees) 135 Extension Active (degrees) 0 PT-OP-L Special Tests Start: 09/30/20 12:18 Freq: Status: Active Protocol: Document 09/30/20 12:18 HH (Rec: 09/30/20 12:43 [email or web address]) Special Tests Knee Special Tests Anterior Draw Test Results -ve PETE Test Results -ve Jared Test Test Results +Ve r Comments R lateral knee pain with knee valgus force with external rotation at R tibia relief with lateral knee traction Apley's Compression Test Results -ve Varus- 0 Degrees Test Results -ve Valgus- 25 Degrees Test Results -ve Varus- 25 Degrees Test Results -ve Valgus- 0 Degrees Test Results -ve PT-OP-M Strength Start: 09/30/20 12:18 Freq: Status: Active Protocol: Document 09/30/20 12:18 HH (Rec: 09/30/20 12:43 HH [email or web address]) Hip Strength Hip Manual Muscle Testing Right Flexion (L2) 4+ Good+ Extension (S1) 4+ Good+ Abduction 4+ Good+ Adduction 4+ Good+ Left Flexion (L2) 5 Normal Extension (S1) 5 Normal Abduction 5 Normal Adduction 5 Normal Knee Strength Knee Manual Muscle Testing Right Flexion (S2) 3+ Fair+ Extension (L3) 3+ Fair+ Comments significant pain against resistance Left Flexion (S2) 5 Normal Extension (L3) 5 Normal PT-OP-Q Treatments Start: 09/30/20 12:18 Freq: Status: Active Protocol: Document 10/17/20 09:37 OF (Rec: 10/17/20 12:49 OF [email or web address]) Cardio Equipment Recumbent Bicycle Duration (Minutes) 5 Seat Position 12 Therapeutic Exercises Supine Exercises gastroc/ peroneal stretch Side bilateral Reps/Minutes x10 reps Comments painfree range w/ comfort stretch - good response Sitting Exercises knee flexion Equipment Used level 3 band Reps/Minutes 15x3 Comments no discomfort LAQ Side bilateral Resistance 5# Reps/Minutes 3x15 Standing Exercises TKE Standing Exercise Name TKE Side right Resistance 3 Equipment Used TB Reps/Minutes 10 x 2 Comments encouraged weight shift onto RLE during active extension; Manual Therapy Treatment Joint Mobilizations R lateral knee Grade III Body Position Sitting Comments half foam roller underneath medial joint line. Fibular head A/P, lateral distractions , distraction. All improve symptoms. Pt tender over medial joint line Lymphedema Treatment Other Other pt advised to climb steps with step to fashion, perform HEP, ice and limit end range flexion activities PT-OP-T Assessment and Plan Start: 09/30/20 12:18 Freq: Status: Active Protocol: Document 10/17/20 09:37 OF (Rec: 10/17/20 12:49 OF [email or web address]) Physical Therapy Assessment Rehab Potential Rehabilitation Potential Good Evaluation Complexity Number of Personal Factors/Comorbidities 1-2 Number of Body Systems Impaired 1-2 Clinical Presentation at Evaluation Evolving Impairments Impairments Pain,ROM,Strength Assessment Summary Assessment Yassine has had reduced pain with HEP, requires cues for proper LAQ, HS curl and distractions. He has limited endurance with standing activities today. Physical Therapy Plan Frequency and Duration Frequency of Treatment 2x/wk x4, 1x/wkx4 Duration of Treatment 8 weeks Plan of Care Start Date 09/30/20 Plan of Care End Date 11/29/20 Next Visit Focus/Plan Next Note Type Treatment Note Next Visit Plan difficulty with HEP performance. Pt has limited tolerance for closed chain strengthening
--- NOTE | 2020-10-20 16:15 | PT.OTN ---
Current Diagnoses Other chronic pain (10/20/20) Pain in right knee (10/20/20) Physical Therapy Treatment Note PT-OP-A Visit Information Start: 09/30/20 12:18 Freq: Status: Active Protocol: Document 10/20/20 15:15 SAK (Rec: 10/20/20 16:15 SAK [id number]) Out-Patient Physical Therapy Visit Information Visit Information Visit Type Treatment Note Visit Start Time 15:15 Total Visit Minutes 37 Visit Number Evaluation Information Evaluation Date 09/30/20 PT-OP-B Current Condition Start: 09/30/20 12:18 Freq: Status: Active Protocol: Document 09/30/20 12:18 HH (Rec: 09/30/20 12:43 HH [email or web address]) Current Condition History of Current Condition Onset Date 3 weeks ago Current Complaints subacute R knee pain, difficulty in walking History of Current Condition Yassine is a retired 59yo male here for his new onset of R knee pain started 3 weeks ago. He stated he planted awkwardly with his R knee in a twisted position after coming off from the ladder which gave immediate sharp pain. ( unable to identify exact painful location) Since then, pt has significant difficulty in walking, climbing stair and bending/ twisting his knee. He has to walk with knee straight at this point and also c/o episodes of clicking and giving out. He has been wearing a soft knee brace to provide stability. pt stated he had been dealing with chronic knee pain for years but this is something new and worse than before. He also stated he has been having numbness and tingling at his whole lateral aspect of R leg for a few years. Prior Treatments and Tests x-ray @R knee at 09/27/20 IMPRESSION: No fracture or dislocation. Mild tricompartmental knee joint degeneration. Treatment Goals Patient/Caregiver Goals 1. to regain his full knee ROM and strength 2. 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 PT-OP-C Subjective Start: 09/30/20 12:18 Freq: Status: Active Protocol: Document 10/20/20 15:15 SAK (Rec: 10/20/20 16:15 SAK [id number]) OP-PT Subjective Patient Comments Patient Comments Knee continues to feel more pain inside of knee since his dog ran into that part of his knee. Reports doing HEP except the one with the towel that tweaks his foot. . Doesn't have follow-up appointment scheduled with doctor yet. Goes to accupuncture after PT, helpful . Patient Reported Progress Same PT-OP-F Manual Assessment Start: 09/30/20 12:18 Freq: Status: Active Protocol: Document 09/30/20 12:18 HH (Rec: 09/30/20 12:43 [email or web address]) Manual Assessments Soft Tissue Assessment Soft Tissue Mobility Assessment significant hypertoncity at distal hamstrings slight tenderness at distal patella tendon Joint Mobility Assessment Joint Mobility Assessment significant muscle guarding with PROM at R knee PT-OP-G Mobility & Gait Start: 09/30/20 12:18 Freq: Status: Active Protocol: Document 09/30/20 12:18 HH (Rec: 09/30/20 12:43 [email or web address]) OP Gait Assessment Gait Deviations General Gait Pattern Antalgic,Decreased Stride Length,Decreased Feet Clearance Factors Limiting Gait Function Factors Limiting Gait Function Decreased Activity Tolerance, Decreased Sensation,Decreased Strength,Limited Range of Motion,Pain,Poor Balance,Poor Safety Awareness Comments Gait Comments pt amb with a stiff knee pattern : decreased knee flexion during swing phase and push off during preswing. PT-OP-K Range of Motion Start: 09/30/20 12:18 Freq: Status: Active Protocol: Document 09/30/20 12:18 HH (Rec: 09/30/20 12:43 [email or web address]) Knee Goniometric Range of Motion Knee Right Knee ROM WFL No Patient Position Supine Flexion Active (degrees) 122 Extension Active (degrees) 0 Comments significant pain at R knee with end range flexion. Left Knee ROM WFL Yes Flexion Active (degrees) 135 Extension Active (degrees) 0 PT-OP-L Special Tests Start: 09/30/20 12:18 Freq: Status: Active Protocol: Document 09/30/20 12:18 HH (Rec: 09/30/20 12:43 [email or web address]) Special Tests Knee Special Tests Anterior Draw Test Results -ve PETE Test Results -ve Jared Test Test Results +Ve r Comments R lateral knee pain with knee valgus force with external rotation at R tibia relief with lateral knee traction Apley's Compression Test Results -ve Varus- 0 Degrees Test Results -ve Valgus- 25 Degrees Test Results -ve Varus- 25 Degrees Test Results -ve Valgus- 0 Degrees Test Results -ve PT-OP-M Strength Start: 09/30/20 12:18 Freq: Status: Active Protocol: Document 09/30/20 12:18 HH (Rec: 09/30/20 12:43 HH [email or web address]) Hip Strength Hip Manual Muscle Testing Right Flexion (L2) 4+ Good+ Extension (S1) 4+ Good+ Abduction 4+ Good+ Adduction 4+ Good+ Left Flexion (L2) 5 Normal Extension (S1) 5 Normal Abduction 5 Normal Adduction 5 Normal Knee Strength Knee Manual Muscle Testing Right Flexion (S2) 3+ Fair+ Extension (L3) 3+ Fair+ Comments significant pain against resistance Left Flexion (S2) 5 Normal Extension (L3) 5 Normal PT-OP-Q Treatments Start: 09/30/20 12:18 Freq: Status: Active Protocol: Document 10/20/20 15:15 SAK (Rec: 10/20/20 16:15 SAK [id number]) Cardio Equipment Recumbent Bicycle Duration (Minutes) 8 Resistance 2 Seat Position 12 Gym Equipment Shuttle Recovery Unilateral Squats Resistance 37 Shuttle Recovery Platform Stable Reps/Time 10x2 Bilateral Squats Resistance 50 Shuttle Recovery Platform Stable Reps/Time 10x2 Therapeutic Exercises Supine Exercises gastroc/ peroneal stretch Side bilateral Reps/Minutes x10 reps Comments painfree range w/ comfort stretch - good response Sitting Exercises knee flexion Equipment Used level 3 band Reps/Minutes 15x3 Comments no discomfort LAQ Side bilateral Resistance 5# Reps/Minutes 2x10 Comments pain-free ROM (pain at full extension) Manual Therapy Treatment Soft Tissue Mobilization STMs Mobilization Type Myofascial Release, Oscillations,Strumming Intensity/Depth Moderate Body Position Prone Comments R lateral HS, IT band, lateral calf Joint Mobilizations R lateral knee Grade III Body Position Sitting Comments half foam roller underneath medial joint line. Fibular head A/P, lateral distractions , distraction. All improve symptoms. Pt tender over medial joint line Self-Care/Home Management Treatment Education Patient Education Home Exercise Program Other Education use of ice and heat, slower movements, no twisting PT-OP-T Assessment and Plan Start: 09/30/20 12:18 Freq: Status: Active Protocol: Document 10/20/20 15:15 [facility] (Rec: 10/20/20 16:15 [email or web address] [id number]) Physical Therapy Assessment Impairments Impairments Pain,ROM,Strength Goals balance Impairment unable to stand on RLE Short Term Goal (STG) pt will be able to show improved balance and stability to stand on R LE >10 seconds. STG Duration 4 weeks Radioactivity Technician Goal (LTG) pt will be able to show improved balance and stability in order for him to climb ladder to work on his boat again safely LTG Duration 8 weeks gait Impairment antalgic gait Radioactivity Technician Goal (LTG) pt will be able to amb without the use of knee brace and show normalized gait (knee flexion during swing phaese) LTG Duration 8 weeks ROM Impairment limited R knee flexion Short Term Goal (STG) pt will be able to show increased R knee ROM up to 135 degrees without increase in pain STG Duration 4 weeks [facility] Goal (LTG) pt will be able to actively flex his R knee > 90 degrees to climb stairs without discomfort LTG Duration 8 weeks LEFS Impairment pt scores 21 on LEFS Short Term Goal (STG) pt will score >35 on LEFS to show improved functional mobility and strength STG Duration 4 weeks Radioactivity Technician Goal (LTG) pt will score >45 on LEFS to show improved functional mobility and strength LTG Duration 8 weeks Assessment Summary Assessment Low tolerance for weight- bearing activities, was able to do shuttle leg press with light resistance double and single leg. Encouraged aquatic exercise for offloading knee, also consider use of cane or walking stick to prevent limp. Physical Therapy Plan Frequency and Duration Frequency of Treatment 2x/wk x4, 1x/wkx4 Duration of Treatment 8 weeks Plan of Care Start Date 09/30/20 Plan of Care End Date 11/29/20 Therapeutic Interventions Therapeutic Interventions Aquatic Therapy,Balance Training,Gait Training,Home Exercise Program,Joint Mobilizations,Manual Therapy, Neuromuscular Re-education, Patient/Caregiver Education, Self-Care/Home Management,Soft Tissue Mobilization,Taping, Therapeutic Activities, Therapeutic Exercises Modalities Biofeedback,Cold Pack/Ice Massage,Electric Stimulation, Hot Packs,Infrared Therapy, Iontophoresis,Traction- Mechanical,Ultrasound Next Visit Focus/Plan Next Note Type Treatment Note Next Visit Plan Continue PT per POC with primary PT.
--- NOTE | 2020-10-24 09:00 | PT.OTN ---
Current Diagnoses Other chronic pain (10/24/20) Pain in right knee (10/24/20) Physical Therapy Treatment Note PT-OP-A Visit Information Start: 09/30/20 12:18 Freq: Status: Active Protocol: Document 10/24/20 08:06 (Rec: 10/24/20 09:00 [id number]) Out-Patient Physical Therapy Visit Information Visit Information Visit Type Treatment Note Visit Start Time 08:15 Visit Stop Time 09:00 Total Visit Minutes 45 Visit Number [id number] PT-OP-B Current Condition Start: 09/30/20 12:18 Freq: Status: Active Protocol: Document 09/30/20 12:18 HH (Rec: 09/30/20 12:43 [email or web address]) Current Condition History of Current Condition Onset Date 3 weeks ago Current Complaints subacute R knee pain, difficulty in walking History of Current Condition Yassine is a retired 59yo male here for his new onset of R knee pain started 3 weeks ago. He stated he planted awkwardly with his R knee in a twisted position after coming off from the ladder which gave immediate sharp pain. ( unable to identify exact painful location) Since then, pt has significant difficulty in walking, climbing stair and bending/ twisting his knee. He has to walk with knee straight at this point and also c/o episodes of clicking and giving out. He has been wearing a soft knee brace to provide stability. pt stated he had been dealing with chronic knee pain for years but this is something new and worse than before. He also stated he has been having numbness and tingling at his whole lateral aspect of R leg for a few years. Prior Treatments and Tests x-ray @R knee at 09/27/20 IMPRESSION: No fracture or dislocation. Mild tricompartmental knee joint degeneration. Treatment Goals Patient/Caregiver Goals 1. to regain his full knee ROM and strength 2. 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 PT-OP-C Subjective Start: 09/30/20 12:18 Freq: Status: Active Protocol: Document 10/24/20 08:06 HH (Rec: 10/24/20 09:00 [id number]) OP-PT Subjective Patient Comments Patient Comments I didnt hurt my knee finally for this weekend. I also noticed i havent had that give out episode. Howevre, my medial side of the knee seems to hurt more than the lateral side. Patient Reported Progress Improving PT-OP-F Manual Assessment Start: 09/30/20 12:18 Freq: Status: Active Protocol: Document 09/30/20 12:18 HH (Rec: 09/30/20 12:43 [email or web address]) Manual Assessments Soft Tissue Assessment Soft Tissue Mobility Assessment significant hypertoncity at distal hamstrings slight tenderness at distal patella tendon Joint Mobility Assessment Joint Mobility Assessment significant muscle guarding with PROM at R knee PT-OP-G Mobility & Gait Start: 09/30/20 12:18 Freq: Status: Active Protocol: Document 09/30/20 12:18 HH (Rec: 09/30/20 12:43 [email or web address]) OP Gait Assessment Gait Deviations General Gait Pattern Antalgic,Decreased Stride Length,Decreased Feet Clearance Factors Limiting Gait Function Factors Limiting Gait Function Decreased Activity Tolerance, Decreased Sensation,Decreased Strength,Limited Range of Motion,Pain,Poor Balance,Poor Safety Awareness Comments Gait Comments pt amb with a stiff knee pattern : decreased knee flexion during swing phase and push off during preswing. PT-OP-K Range of Motion Start: 09/30/20 12:18 Freq: Status: Active Protocol: Document 09/30/20 12:18 HH (Rec: 09/30/20 12:43 [email or web address]) Knee Goniometric Range of Motion Knee Right Knee ROM WFL No Patient Position Supine Flexion Active (degrees) 122 Extension Active (degrees) 0 Comments significant pain at R knee with end range flexion. Left Knee ROM WFL Yes Flexion Active (degrees) 135 Extension Active (degrees) 0 PT-OP-L Special Tests Start: 09/30/20 12:18 Freq: Status: Active Protocol: Document 09/30/20 12:18 HH (Rec: 09/30/20 12:43 [email or web address]) Special Tests Knee Special Tests Anterior Draw Test Results -ve PETE Test Results -ve Jared Test Test Results +Ve r Comments R lateral knee pain with knee valgus force with external rotation at R tibia relief with lateral knee traction Apley's Compression Test Results -ve Varus- 0 Degrees Test Results -ve Valgus- 25 Degrees Test Results -ve Varus- 25 Degrees Test Results -ve Valgus- 0 Degrees Test Results -ve PT-OP-M Strength Start: 09/30/20 12:18 Freq: Status: Active Protocol: Document 09/30/20 12:18 (Rec: 09/30/20 12:43 [email or web address]) Hip Strength Hip Manual Muscle Testing Right Flexion (L2) 4+ Good+ Extension (S1) 4+ Good+ Abduction 4+ Good+ Adduction 4+ Good+ Left Flexion (L2) 5 Normal Extension (S1) 5 Normal Abduction 5 Normal Adduction 5 Normal Knee Strength Knee Manual Muscle Testing Right Flexion (S2) 3+ Fair+ Extension (L3) 3+ Fair+ Comments significant pain against resistance Left Flexion (S2) 5 Normal Extension (L3) 5 Normal PT-OP-Q Treatments Start: 09/30/20 12:18 Freq: Status: Active Protocol: Document 10/24/20 08:06 (Rec: 10/24/20 09:00 [id number]) Cardio Equipment Recumbent Bicycle Duration (Minutes) 10 Resistance 6 Seat Position 9 Gym Equipment Shuttle Recovery calf raises Resistance #37 Shuttle Recovery Platform Stable Reps/Time 10 x2 Unilateral Squats Resistance 37 Shuttle Recovery Platform Stable Reps/Time 10x2, medial joint line discomfort Bilateral Squats Resistance 50 Shuttle Recovery Platform Stable Reps/Time 10x2 Therapeutic Exercises Supine Exercises knee extension Supine Exercise Name with DF Side right Equipment Used half foam roller under ankle Reps/Minutes 3 sec hold x 10 Sitting Exercises knee flexion Equipment Used level 3 band Reps/Minutes 15x3 Comments no discomfort LAQ Side bilateral Resistance 5# Reps/Minutes 2x10 Comments no pain noted. Manual Therapy Treatment Soft Tissue Mobilization STMs Mobilization Type Myofascial Release, Oscillations,Strumming Intensity/Depth Moderate Body Position Prone Comments R lateral HS, IT band, lateral calf and bilateral joint line Joint Mobilizations R lateral knee Grade III Body Position Sitting Comments half foam roller underneath medial joint line. Fibular head A/P, lateral distractions , distraction. All improve symptoms. Pt tender over medial joint line PT-OP-T Assessment and Plan Start: 09/30/20 12:18 Freq: Status: Active Protocol: Document 10/24/20 08:06 (Rec: 10/24/20 09:00 [id number]) Physical Therapy Assessment Goals balance Impairment unable to stand on RLE Short Term Goal (STG) pt will be able to show improved balance and stability to stand on R LE >10 seconds. STG Duration 4 weeks Longterm Goal (LTG) pt will be able to show improved balance and stability in order for him to climb ladder to work on his boat again safely LTG Duration 8 weeks gait Impairment antalgic gait Corporate Safety Director Goal (LTG) pt will be able to amb without the use of knee brace and show normalized gait (knee flexion during swing phaese) LTG Duration 8 weeks ROM Impairment limited R knee flexion Short Term Goal (STG) pt will be able to show increased R knee ROM up to 135 degrees without increase in pain STG Duration 4 weeks Longterm Goal (LTG) pt will be able to actively flex his R knee > 90 degrees to climb stairs without discomfort LTG Duration 8 weeks LEFS Impairment pt scores 21 on LEFS Short Term Goal (STG) pt will score >35 on LEFS to show improved functional mobility and strength STG Duration 4 weeks Corporate Safety Director Goal (LTG) pt will score >45 on LEFS to show improved functional mobility and strength LTG Duration 8 weeks Assessment Summary Assessment Pt shows improved ROM on R knee (flexion =140) and no pain with resisted knee extension/ flexion. However, his c/o medial knee pain > lateral knee pain. He can only shyann 37# on single leg press at this point. Physical Therapy Plan Frequency and Duration Frequency of Treatment 2x/wk x4, 1x/wkx4 Duration of Treatment 8 weeks Plan of Care Start Date 09/30/20 Plan of Care End Date 11/29/20 Therapeutic Interventions Therapeutic Interventions Aquatic Therapy,Balance Training,Gait Training,Home Exercise Program,Joint Mobilizations,Manual Therapy, Neuromuscular Re-education, Patient/Caregiver Education, Self-Care/Home Management,Soft Tissue Mobilization,Taping, Therapeutic Activities, Therapeutic Exercises Modalities Biofeedback,Cold Pack/Ice Massage,Electric Stimulation, Hot Packs,Infrared Therapy, Iontophoresis,Traction- Mechanical,Ultrasound Next Visit Focus/Plan Next Note Type Treatment Note Next Visit Plan Continue PT per POC with primary PT.
--- NOTE | 2020-10-27 09:00 | PT.OTN ---
Current Diagnoses Other chronic pain (10/27/20) Pain in right knee (10/27/20) Physical Therapy Treatment Note PT-OP-A Visit Information Start: 09/30/20 12:18 Freq: Status: Active Protocol: Document 10/27/20 08:18 HH (Rec: 10/27/20 09:00 [id number]) Out-Patient Physical Therapy Visit Information Visit Information Visit Type Treatment Note Visit Start Time 08:16 Visit Stop Time 09:00 Total Visit Minutes 44 Visit Number PT-OP-B Current Condition Start: 09/30/20 12:18 Freq: Status: Active Protocol: Document 09/30/20 12:18 HH (Rec: 09/30/20 12:43 [email or web address]) Current Condition History of Current Condition Onset Date 3 weeks ago Current Complaints subacute R knee pain, difficulty in walking History of Current Condition Yassine is a retired 59yo male here for his new onset of R knee pain started 3 weeks ago. He stated he planted awkwardly with his R knee in a twisted position after coming off from the ladder which gave immediate sharp pain. ( unable to identify exact painful location) Since then, pt has significant difficulty in walking, climbing stair and bending/ twisting his knee. He has to walk with knee straight at this point and also c/o episodes of clicking and giving out. He has been wearing a soft knee brace to provide stability. pt stated he had been dealing with chronic knee pain for years but this is something new and worse than before. He also stated he has been having numbness and tingling at his whole lateral aspect of R leg for a few years. Prior Treatments and Tests x-ray @R knee at 09/27/20 IMPRESSION: No fracture or dislocation. Mild tricompartmental knee joint degeneration. Treatment Goals Patient/Caregiver Goals 1. to regain his full knee ROM and strength 2. 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 PT-OP-C Subjective Start: 09/30/20 12:18 Freq: Status: Active Protocol: Document 10/27/20 08:18 HH (Rec: 10/27/20 09:00 [id number]) OP-PT Subjective Patient Comments Patient Comments Its getting better because my pain is getting less. Patient Reported Progress Improving PT-OP-F Manual Assessment Start: 09/30/20 12:18 Freq: Status: Active Protocol: Document 09/30/20 12:18 (Rec: 09/30/20 12:43 [email or web address]) Manual Assessments Soft Tissue Assessment Soft Tissue Mobility Assessment significant hypertoncity at distal hamstrings slight tenderness at distal patella tendon Joint Mobility Assessment Joint Mobility Assessment significant muscle guarding with PROM at R knee PT-OP-G Mobility & Gait Start: 09/30/20 12:18 Freq: Status: Active Protocol: Document 09/30/20 12:18 HH (Rec: 09/30/20 12:43 [email or web address]) OP Gait Assessment Gait Deviations General Gait Pattern Antalgic,Decreased Stride Length,Decreased Feet Clearance Factors Limiting Gait Function Factors Limiting Gait Function Decreased Activity Tolerance, Decreased Sensation,Decreased Strength,Limited Range of Motion,Pain,Poor Balance,Poor Safety Awareness Comments Gait Comments pt amb with a stiff knee pattern : decreased knee flexion during swing phase and push off during preswing. PT-OP-K Range of Motion Start: 09/30/20 12:18 Freq: Status: Active Protocol: Document 09/30/20 12:18 (Rec: 09/30/20 12:43 [email or web address]) Knee Goniometric Range of Motion Knee Right Knee ROM WFL No Patient Position Supine Flexion Active (degrees) 122 Extension Active (degrees) 0 Comments significant pain at R knee with end range flexion. Left Knee ROM WFL Yes Flexion Active (degrees) 135 Extension Active (degrees) 0 PT-OP-L Special Tests Start: 09/30/20 12:18 Freq: Status: Active Protocol: Document 09/30/20 12:18 (Rec: 09/30/20 12:43 [email or web address]) Special Tests Knee Special Tests Anterior Draw Test Results -ve PETE Test Results -ve Jared Test Test Results +Ve r Comments R lateral knee pain with knee valgus force with external rotation at R tibia relief with lateral knee traction Apley's Compression Test Results -ve Varus- 0 Degrees Test Results -ve Valgus- 25 Degrees Test Results -ve Varus- 25 Degrees Test Results -ve Valgus- 0 Degrees Test Results -ve PT-OP-M Strength Start: 09/30/20 12:18 Freq: Status: Active Protocol: Document 09/30/20 12:18 HH (Rec: 09/30/20 12:43 HH [email or web address]) Hip Strength Hip Manual Muscle Testing Right Flexion (L2) 4+ Good+ Extension (S1) 4+ Good+ Abduction 4+ Good+ Adduction 4+ Good+ Left Flexion (L2) 5 Normal Extension (S1) 5 Normal Abduction 5 Normal Adduction 5 Normal Knee Strength Knee Manual Muscle Testing Right Flexion (S2) 3+ Fair+ Extension (L3) 3+ Fair+ Comments significant pain against resistance Left Flexion (S2) 5 Normal Extension (L3) 5 Normal PT-OP-Q Treatments Start: 09/30/20 12:18 Freq: Status: Active Protocol: Document 10/27/20 08:18 HH (Rec: 10/27/20 09:00 [id number]) Cardio Equipment Recumbent Bicycle Duration (Minutes) 10 Resistance 6 Seat Position 9 Gym Equipment Shuttle Recovery calf raises Resistance #37 Shuttle Recovery Platform Stable Reps/Time 12x2 Unilateral Squats Resistance 37 Shuttle Recovery Platform Stable Reps/Time 12x2, pressure only Therapeutic Exercises Supine Exercises bridging Side bilateral Reps/Minutes 10 x 2 Sitting Exercises knee flexion Equipment Used level 3 band Reps/Minutes 15x3 Comments no discomfort LAQ Side bilateral Resistance 5# Reps/Minutes 2x10, 3 sec hold Comments no pain noted. Standing Exercises balance Standing Exercise Name stagger stance on blue foam Equipment Used blue foam Reps/Minutes 4 mins Comments static stance after with weight shifting. squat Resistance with red band Reps/Minutes 8 x 2 Manual Therapy Treatment Soft Tissue Mobilization STMs Mobilization Type Myofascial Release, Oscillations,Strumming Intensity/Depth Moderate Body Position Prone Comments R lateral HS, IT band, lateral calf and bilateral joint line PT-OP-T Assessment and Plan Start: 09/30/20 12:18 Freq: Status: Active Protocol: Document 10/27/20 08:18 HH (Rec: 10/27/20 09:00 [id number]) Physical Therapy Assessment Goals balance Impairment unable to stand on RLE Short Term Goal (STG) pt will be able to show improved balance and stability to stand on R LE >10 seconds. STG Duration 4 weeks [place] [employer] Goal (LTG) pt will be able to show improved balance and stability in order for him to climb ladder to work on his boat again safely LTG Duration 8 weeks gait Impairment antalgic gait Jail Goal (LTG) pt will be able to amb without the use of knee brace and show normalized gait (knee flexion during swing phaese) LTG Duration 8 weeks ROM Impairment limited R knee flexion Short Term Goal (STG) pt will be able to show increased R knee ROM up to 135 degrees without increase in pain STG Duration 4 weeks Jail Goal (LTG) pt will be able to actively flex his R knee > 90 degrees to climb stairs without discomfort LTG Duration 8 weeks LEFS Impairment pt scores 21 on LEFS Short Term Goal (STG) pt will score >35 on LEFS to show improved functional mobility and strength STG Duration 4 weeks [place] [employer] Goal (LTG) pt will score >45 on LEFS to show improved functional mobility and strength LTG Duration 8 weeks Assessment Summary Assessment Pt has less pain and better mobility now. Added balancing exercises to facilitate his quad control today and he shyann session well. Physical Therapy Plan Frequency and Duration Frequency of Treatment 2x/wk x4, 1x/wkx4 Duration of Treatment 8 weeks Plan of Care Start Date 09/30/20 Plan of Care End Date 11/29/20 Therapeutic Interventions Therapeutic Interventions Aquatic Therapy,Balance Training,Gait Training,Home Exercise Program,Joint Mobilizations,Manual Therapy, Neuromuscular Re-education, Patient/Caregiver Education, Self-Care/Home Management,Soft Tissue Mobilization,Taping, Therapeutic Activities, Therapeutic Exercises Modalities Biofeedback,Cold Pack/Ice Massage,Electric Stimulation, Hot Packs,Infrared Therapy, Iontophoresis,Traction- Mechanical,Ultrasound Next Visit Focus/Plan Next Note Type Treatment Note Next Visit Plan Continue PT per POC with primary PT.
--- NOTE | 2020-10-31 09:48 | PT.OTN ---
Current Diagnoses Other chronic pain (10/31/20) Pain in right knee (10/31/20) Physical Therapy Treatment Note PT-OP-A Visit Information Start: 09/30/20 12:18 Freq: Status: Active Protocol: Document 10/31/20 08:33 HH (Rec: 10/31/20 09:48 [id number]) Out-Patient Physical Therapy Visit Information Visit Information Visit Type Treatment Note Visit Start Time 09:00 Visit Stop Time 09:45 Total Visit Minutes 45 Visit Number PT-OP-B Current Condition Start: 09/30/20 12:18 Freq: Status: Active Protocol: Document 09/30/20 12:18 HH (Rec: 09/30/20 12:43 [email or web address]) Current Condition History of Current Condition Onset Date 3 weeks ago Current Complaints subacute R knee pain, difficulty in walking History of Current Condition Yassine is a retired 59yo male here for his new onset of R knee pain started 3 weeks ago. He stated he planted awkwardly with his R knee in a twisted position after coming off from the ladder which gave immediate sharp pain. ( unable to identify exact painful location) Since then, pt has significant difficulty in walking, climbing stair and bending/ twisting his knee. He has to walk with knee straight at this point and also c/o episodes of clicking and giving out. He has been wearing a soft knee brace to provide stability. pt stated he had been dealing with chronic knee pain for years but this is something new and worse than before. He also stated he has been having numbness and tingling at his whole lateral aspect of R leg for a few years. Prior Treatments and Tests x-ray @R knee at 09/27/20 IMPRESSION: No fracture or dislocation. Mild tricompartmental knee joint degeneration. Treatment Goals Patient/Caregiver Goals 1. to regain his full knee ROM and strength 2. 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 PT-OP-C Subjective Start: 09/30/20 12:18 Freq: Status: Active Protocol: Document 10/31/20 08:33 HH (Rec: 10/31/20 09:48 [id number]) OP-PT Subjective Patient Comments Patient Comments I feel okay so far because i was on my feet a lot during the weekend. Going down hill seems to be hardest. I havent had any buckling episodes and freya been walking faster. Patient Reported Progress Improving PT-OP-F Manual Assessment Start: 09/30/20 12:18 Freq: Status: Active Protocol: Document 09/30/20 12:18 HH (Rec: 09/30/20 12:43 [email or web address]) Manual Assessments Soft Tissue Assessment Soft Tissue Mobility Assessment significant hypertoncity at distal hamstrings slight tenderness at distal patella tendon Joint Mobility Assessment Joint Mobility Assessment significant muscle guarding with PROM at R knee PT-OP-G Mobility & Gait Start: 09/30/20 12:18 Freq: Status: Active Protocol: Document 09/30/20 12:18 HH (Rec: 09/30/20 12:43 [email or web address]) OP Gait Assessment Gait Deviations General Gait Pattern Antalgic,Decreased Stride Length,Decreased Feet Clearance Factors Limiting Gait Function Factors Limiting Gait Function Decreased Activity Tolerance, Decreased Sensation,Decreased Strength,Limited Range of Motion,Pain,Poor Balance,Poor Safety Awareness Comments Gait Comments pt amb with a stiff knee pattern : decreased knee flexion during swing phase and push off during preswing. PT-OP-K Range of Motion Start: 09/30/20 12:18 Freq: Status: Active Protocol: Document 09/30/20 12:18 HH (Rec: 09/30/20 12:43 [email or web address]) Knee Goniometric Range of Motion Knee Right Knee ROM WFL No Patient Position Supine Flexion Active (degrees) 122 Extension Active (degrees) 0 Comments significant pain at R knee with end range flexion. Left Knee ROM WFL Yes Flexion Active (degrees) 135 Extension Active (degrees) 0 PT-OP-L Special Tests Start: 09/30/20 12:18 Freq: Status: Active Protocol: Document 09/30/20 12:18 HH (Rec: 09/30/20 12:43 [email or web address]) Special Tests Knee Special Tests Anterior Draw Test Results -ve PETE Test Results -ve Jared Test Test Results +Ve r Comments R lateral knee pain with knee valgus force with external rotation at R tibia relief with lateral knee traction Apley's Compression Test Results -ve Varus- 0 Degrees Test Results -ve Valgus- 25 Degrees Test Results -ve Varus- 25 Degrees Test Results -ve Valgus- 0 Degrees Test Results -ve PT-OP-M Strength Start: 09/30/20 12:18 Freq: Status: Active Protocol: Document 09/30/20 12:18 HH (Rec: 09/30/20 12:43 HH [email or web address]) Hip Strength Hip Manual Muscle Testing Right Flexion (L2) 4+ Good+ Extension (S1) 4+ Good+ Abduction 4+ Good+ Adduction 4+ Good+ Left Flexion (L2) 5 Normal Extension (S1) 5 Normal Abduction 5 Normal Adduction 5 Normal Knee Strength Knee Manual Muscle Testing Right Flexion (S2) 3+ Fair+ Extension (L3) 3+ Fair+ Comments significant pain against resistance Left Flexion (S2) 5 Normal Extension (L3) 5 Normal PT-OP-Q Treatments Start: 09/30/20 12:18 Freq: Status: Active Protocol: Document 10/31/20 08:33 HH (Rec: 10/31/20 09:48 HH [id number]) Cardio Equipment Recumbent Bicycle Duration (Minutes) 10 Resistance 6 Seat Position 9 Gym Equipment Shuttle Recovery Unilateral Squats Resistance 37 Shuttle Recovery Platform Stable Reps/Time 12x2, pressure only, no pain noted. Therapeutic Exercises Sitting Exercises knee flexion Equipment Used level 3 band Reps/Minutes 15x3 Comments no discomfort LAQ Side bilateral Resistance 5# Reps/Minutes 2x10, 3 sec hold Comments no pain noted. Standing Exercises weight shift Standing Exercise Name on blue foam Reps/Minutes 4 mins Comments cues on anterior and posterior trunk lean. balance Standing Exercise Name stagger stance on blue foam Equipment Used blue foam Reps/Minutes 4 mins Comments static stance after with weight shifting. TKE Standing Exercise Name TKE Side right Resistance 3 Equipment Used # TB level 3 Reps/Minutes 10 x 2 Manual Therapy Treatment Soft Tissue Mobilization STMs Mobilization Type Myofascial Release, Oscillations,Strumming Intensity/Depth Moderate Body Position Prone Comments R lateral HS, IT band, lateral calf and bilateral joint line PT-OP-T Assessment and Plan Start: 09/30/20 12:18 Freq: Status: Active Protocol: Document 10/31/20 08:33 HH (Rec: 10/31/20 09:48 [id number]) Physical Therapy Assessment Goals balance Impairment unable to stand on RLE Short Term Goal (STG) pt will be able to show improved balance and stability to stand on R LE >10 seconds. STG Duration 4 weeks Jail Goal (LTG) pt will be able to show improved balance and stability in order for him to climb ladder to work on his boat again safely LTG Duration 8 weeks gait Impairment antalgic gait [employer] Goal (LTG) pt will be able to amb without the use of knee brace and show normalized gait (knee flexion during swing phaese) LTG Duration 8 weeks ROM Impairment limited R knee flexion Short Term Goal (STG) pt will be able to show increased R knee ROM up to 135 degrees without increase in pain STG Duration 4 weeks Jail Goal (LTG) pt will be able to actively flex his R knee > 90 degrees to climb stairs without discomfort LTG Duration 8 weeks LEFS Impairment pt scores 21 on LEFS Short Term Goal (STG) pt will score >35 on LEFS to show improved functional mobility and strength STG Duration 4 weeks [employer] Goal (LTG) pt will score >45 on LEFS to show improved functional mobility and strength LTG Duration 8 weeks Assessment Summary Assessment Pt walked in with less antalgic sign. He hasnt any buckling episdoes for the past few weeks which indicates improved stability and strength. Continously focused on open chain ex and partial WB therex. Pt shyann session well . Physical Therapy Plan Frequency and Duration Frequency of Treatment 2x/wk x4, 1x/wkx4 Duration of Treatment 8 weeks Plan of Care Start Date 09/30/20 Plan of Care End Date 11/29/20 Therapeutic Interventions Therapeutic Interventions Aquatic Therapy,Balance Training,Gait Training,Home Exercise Program,Joint Mobilizations,Manual Therapy, Neuromuscular Re-education, Patient/Caregiver Education, Self-Care/Home Management,Soft Tissue Mobilization,Taping, Therapeutic Activities, Therapeutic Exercises Modalities Biofeedback,Cold Pack/Ice Massage,Electric Stimulation, Hot Packs,Infrared Therapy, Iontophoresis,Traction- Mechanical,Ultrasound Next Visit Focus/Plan Next Note Type Treatment Note Next Visit Plan Continue PT per POC with primary PT.
--- NOTE | 2020-11-07 12:51 | PT-OP ANOTE ---
pt no show today and left a voice mail to remind his next appt.
--- NOTE | 2020-11-10 09:45 | PT.OTN ---
Current Diagnoses Other chronic pain (11/10/20) Pain in right knee (11/10/20) Physical Therapy Treatment Note PT-OP-A Visit Information Start: 09/30/20 12:18 Freq: Status: Active Protocol: Document 11/10/20 09:05 (Rec: 11/10/20 09:44 [id number]) Out-Patient Physical Therapy Visit Information Visit Information Visit Type Treatment Note Visit Start Time 09:03 Visit Stop Time 09:45 Total Visit Minutes 42 Visit Number PT-OP-B Current Condition Start: 09/30/20 12:18 Freq: Status: Active Protocol: Document 09/30/20 12:18 (Rec: 09/30/20 12:43 [email or web address]) Current Condition History of Current Condition Onset Date 3 weeks ago Current Complaints subacute R knee pain, difficulty in walking History of Current Condition Yassine is a retired 59yo male here for his new onset of R knee pain started 3 weeks ago. He stated he planted awkwardly with his R knee in a twisted position after coming off from the ladder which gave immediate sharp pain. ( unable to identify exact painful location) Since then, pt has significant difficulty in walking, climbing stair and bending/ twisting his knee. He has to walk with knee straight at this point and also c/o episodes of clicking and giving out. He has been wearing a soft knee brace to provide stability. pt stated he had been dealing with chronic knee pain for years but this is something new and worse than before. He also stated he has been having numbness and tingling at his whole lateral aspect of R leg for a few years. Prior Treatments and Tests x-ray @R knee at 09/27/20 IMPRESSION: No fracture or dislocation. Mild tricompartmental knee joint degeneration. Treatment Goals Patient/Caregiver Goals 1. to regain his full knee ROM and strength 2. 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 PT-OP-C Subjective Start: 09/30/20 12:18 Freq: Status: Active Protocol: Document 11/10/20 09:05 (Rec: 11/10/20 09:44 [id number]) OP-PT Subjective Patient Comments Patient Comments My knee is doing better and im walking okay. I got a new recumbent bike Patient Reported Progress Improving PT-OP-F Manual Assessment Start: 09/30/20 12:18 Freq: Status: Active Protocol: Document 09/30/20 12:18 HH (Rec: 09/30/20 12:43 HH [email or web address]) Manual Assessments Soft Tissue Assessment Soft Tissue Mobility Assessment significant hypertoncity at distal hamstrings slight tenderness at distal patella tendon Joint Mobility Assessment Joint Mobility Assessment significant muscle guarding with PROM at R knee PT-OP-G Mobility & Gait Start: 09/30/20 12:18 Freq: Status: Active Protocol: Document 09/30/20 12:18 HH (Rec: 09/30/20 12:43 [email or web address]) OP Gait Assessment Gait Deviations General Gait Pattern Antalgic,Decreased Stride Length,Decreased Feet Clearance Factors Limiting Gait Function Factors Limiting Gait Function Decreased Activity Tolerance, Decreased Sensation,Decreased Strength,Limited Range of Motion,Pain,Poor Balance,Poor Safety Awareness Comments Gait Comments pt amb with a stiff knee pattern : decreased knee flexion during swing phase and push off during preswing. PT-OP-K Range of Motion Start: 09/30/20 12:18 Freq: Status: Active Protocol: Document 09/30/20 12:18 HH (Rec: 09/30/20 12:43 [email or web address]) Knee Goniometric Range of Motion Knee Right Knee ROM WFL No Patient Position Supine Flexion Active (degrees) 122 Extension Active (degrees) 0 Comments significant pain at R knee with end range flexion. Left Knee ROM WFL Yes Flexion Active (degrees) 135 Extension Active (degrees) 0 PT-OP-L Special Tests Start: 09/30/20 12:18 Freq: Status: Active Protocol: Document 09/30/20 12:18 HH (Rec: 09/30/20 12:43 [email or web address]) Special Tests Knee Special Tests Anterior Draw Test Results -ve PETE Test Results -ve Jared Test Test Results +Ve r Comments R lateral knee pain with knee valgus force with external rotation at R tibia relief with lateral knee traction Apley's Compression Test Results -ve Varus- 0 Degrees Test Results -ve Valgus- 25 Degrees Test Results -ve Varus- 25 Degrees Test Results -ve Valgus- 0 Degrees Test Results -ve PT-OP-M Strength Start: 09/30/20 12:18 Freq: Status: Active Protocol: Document 09/30/20 12:18 (Rec: 09/30/20 12:43 [email or web address]) Hip Strength Hip Manual Muscle Testing Right Flexion (L2) 4+ Good+ Extension (S1) 4+ Good+ Abduction 4+ Good+ Adduction 4+ Good+ Left Flexion (L2) 5 Normal Extension (S1) 5 Normal Abduction 5 Normal Adduction 5 Normal Knee Strength Knee Manual Muscle Testing Right Flexion (S2) 3+ Fair+ Extension (L3) 3+ Fair+ Comments significant pain against resistance Left Flexion (S2) 5 Normal Extension (L3) 5 Normal PT-OP-Q Treatments Start: 09/30/20 12:18 Freq: Status: Active Protocol: Document 11/10/20 09:05 (Rec: 11/10/20 09:44 [id number]) Cardio Equipment Recumbent Bicycle Duration (Minutes) 10 Resistance 6 Seat Position 9 Gym Equipment Shuttle Recovery calf raises Resistance #37 Shuttle Recovery Platform Stable Reps/Time 12x2 Unilateral Squats Resistance #37, #50 Shuttle Recovery Platform Stable Reps/Time 12x2, pressure only Therapeutic Exercises Sitting Exercises knee flexion Equipment Used level 3 band Reps/Minutes 15x3 Comments no discomfort LAQ Side bilateral Resistance 10# Reps/Minutes 2x10, 3 sec hold Comments no pain noted. Standing Exercises step up Standing Exercise Name no support Side bilateral Equipment Used 6 step Comments pressure only. weight shift Standing Exercise Name on blue foam Reps/Minutes 4 mins Comments cues on anterior and posterior trunk lean. balance Standing Exercise Name stagger stance on blue foam Equipment Used blue foam Reps/Minutes 4 mins Comments static stance after with weight shifting. PT-OP-T Assessment and Plan Start: 09/30/20 12:18 Freq: Status: Active Protocol: Document 11/10/20 09:05 (Rec: 11/10/20 09:44 [email or web address]) Physical Therapy Assessment Goals balance Impairment unable to stand on RLE Short Term Goal (STG) pt will be able to show improved balance and stability to stand on R LE >10 seconds. STG Duration 4 weeks Boring Machine Operator Helper Goal (LTG) pt will be able to show improved balance and stability in order for him to climb ladder to work on his boat again safely LTG Duration 8 weeks gait Impairment antalgic gait Boring Machine Operator Helper Goal (LTG) pt will be able to amb without the use of knee brace and show normalized gait (knee flexion during swing phaese) LTG Duration 8 weeks ROM Impairment limited R knee flexion Short Term Goal (STG) pt will be able to show increased R knee ROM up to 135 degrees without increase in pain STG Duration 4 weeks Boring Machine Operator Helper Goal (LTG) pt will be able to actively flex his R knee > 90 degrees to climb stairs without discomfort LTG Duration 8 weeks LEFS Impairment pt scores 21 on LEFS Short Term Goal (STG) pt will score >35 on LEFS to show improved functional mobility and strength STG Duration 4 weeks Fpc Goal (LTG) pt will score >45 on LEFS to show improved functional mobility and strength LTG Duration 8 weeks Assessment Summary Assessment Pt shows progress with improved gait, strength and stability. He is able to shyann 50lbs SL squat for leg press and step up. Physical Therapy Plan Frequency and Duration Frequency of Treatment 2x/wk x4, 1x/wkx4 Duration of Treatment 8 weeks Plan of Care Start Date 09/30/20 Plan of Care End Date 11/29/20 Therapeutic Interventions Therapeutic Interventions Aquatic Therapy,Balance Training,Gait Training,Home Exercise Program,Joint Mobilizations,Manual Therapy, Neuromuscular Re-education, Patient/Caregiver Education, Self-Care/Home Management,Soft Tissue Mobilization,Taping, Therapeutic Activities, Therapeutic Exercises Modalities Biofeedback,Cold Pack/Ice Massage,Electric Stimulation, Hot Packs,Infrared Therapy, Iontophoresis,Traction- Mechanical,Ultrasound Next Visit Focus/Plan Next Note Type Treatment Note Next Visit Plan Continue PT per POC with primary PT.
--- NOTE | 2020-11-15 12:56 | PT.OTN ---
Current Diagnoses Other chronic pain (11/15/20) Pain in right knee (11/15/20) Physical Therapy Treatment Note PT-OP-A Visit Information Start: 09/30/20 12:18 Freq: Status: Active Protocol: Document 11/15/20 10:28 OF (Rec: 11/15/20 12:56 OF [email or web address]) Out-Patient Physical Therapy Visit Information Visit Information Visit Type Treatment Note Visit Start Time 09:47 Visit Stop Time 10:28 Total Visit Minutes 41 Visit Number Evaluation Information Evaluation Date 09/30/20 PT-OP-B Current Condition Start: 09/30/20 12:18 Freq: Status: Active Protocol: Document 09/30/20 12:18 HH (Rec: 09/30/20 12:43 HH [email or web address]) Current Condition History of Current Condition Onset Date 3 weeks ago Current Complaints subacute R knee pain, difficulty in walking History of Current Condition Yassine is a retired 59yo male here for his new onset of R knee pain started 3 weeks ago. He stated he planted awkwardly with his R knee in a twisted position after coming off from the ladder which gave immediate sharp pain. ( unable to identify exact painful location) Since then, pt has significant difficulty in walking, climbing stair and bending/ twisting his knee. He has to walk with knee straight at this point and also c/o episodes of clicking and giving out. He has been wearing a soft knee brace to provide stability. pt stated he had been dealing with chronic knee pain for years but this is something new and worse than before. He also stated he has been having numbness and tingling at his whole lateral aspect of R leg for a few years. Prior Treatments and Tests x-ray @R knee at 09/27/20 IMPRESSION: No fracture or dislocation. Mild tricompartmental knee joint degeneration. Treatment Goals Patient/Caregiver Goals 1. to regain his full knee ROM and strength 2. 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 PT-OP-C Subjective Start: 09/30/20 12:18 Freq: Status: Active Protocol: Document 11/15/20 10:28 OF (Rec: 11/15/20 12:56 OF [email or web address]) OP-PT Subjective Patient Comments Patient Comments pt states he has been feeling better, reduced pain, excluding attempting to mow the lawn Patient Reported Progress Improving OP-PT Pain Assessment Pain Assessment Grid Paper Pain Assessment Grid Completed No Location R knee Pain Location Details generalized knee pain, 0/10 today PT-OP-F Manual Assessment Start: 09/30/20 12:18 Freq: Status: Active Protocol: Document 09/30/20 12:18 HH (Rec: 09/30/20 12:43 [email or web address]) Manual Assessments Soft Tissue Assessment Soft Tissue Mobility Assessment significant hypertoncity at distal hamstrings slight tenderness at distal patella tendon Joint Mobility Assessment Joint Mobility Assessment significant muscle guarding with PROM at R knee PT-OP-G Mobility & Gait Start: 09/30/20 12:18 Freq: Status: Active Protocol: Document 09/30/20 12:18 HH (Rec: 09/30/20 12:43 [email or web address]) OP Gait Assessment Gait Deviations General Gait Pattern Antalgic,Decreased Stride Length,Decreased Feet Clearance Factors Limiting Gait Function Factors Limiting Gait Function Decreased Activity Tolerance, Decreased Sensation,Decreased Strength,Limited Range of Motion,Pain,Poor Balance,Poor Safety Awareness Comments Gait Comments pt amb with a stiff knee pattern : decreased knee flexion during swing phase and push off during preswing. PT-OP-K Range of Motion Start: 09/30/20 12:18 Freq: Status: Active Protocol: Document 09/30/20 12:18 HH (Rec: 09/30/20 12:43 [email or web address]) Knee Goniometric Range of Motion Knee Right Knee ROM WFL No Patient Position Supine Flexion Active (degrees) 122 Extension Active (degrees) 0 Comments significant pain at R knee with end range flexion. Left Knee ROM WFL Yes Flexion Active (degrees) 135 Extension Active (degrees) 0 PT-OP-L Special Tests Start: 09/30/20 12:18 Freq: Status: Active Protocol: Document 09/30/20 12:18 HH (Rec: 09/30/20 12:43 [email or web address]) Special Tests Knee Special Tests Anterior Draw Test Results -ve PETE Test Results -ve Jared Test Test Results +Ve r Comments R lateral knee pain with knee valgus force with external rotation at R tibia relief with lateral knee traction Apley's Compression Test Results -ve Varus- 0 Degrees Test Results -ve Valgus- 25 Degrees Test Results -ve Varus- 25 Degrees Test Results -ve Valgus- 0 Degrees Test Results -ve PT-OP-M Strength Start: 09/30/20 12:18 Freq: Status: Active Protocol: Document 09/30/20 12:18 HH (Rec: 09/30/20 12:43 HH [email or web address]) Hip Strength Hip Manual Muscle Testing Right Flexion (L2) 4+ Good+ Extension (S1) 4+ Good+ Abduction 4+ Good+ Adduction 4+ Good+ Left Flexion (L2) 5 Normal Extension (S1) 5 Normal Abduction 5 Normal Adduction 5 Normal Knee Strength Knee Manual Muscle Testing Right Flexion (S2) 3+ Fair+ Extension (L3) 3+ Fair+ Comments significant pain against resistance Left Flexion (S2) 5 Normal Extension (L3) 5 Normal PT-OP-Q Treatments Start: 09/30/20 12:18 Freq: Status: Active Protocol: Document 11/15/20 10:28 OF (Rec: 11/15/20 12:56 OF [email or web address]) Cardio Equipment Recumbent Bicycle Duration (Minutes) 10 Resistance 6 Seat Position 9 Therapeutic Exercises Supine Exercises knee extension Supine Exercise Name with DF Side right Equipment Used 10# Reps/Minutes 3x10 gastroc/ peroneal stretch Side bilateral Reps/Minutes x10 reps Comments painfree range w/ comfort stretch - good response HS stretch Side right Resistance [id number] Comments using stairs Standing Exercises step up Standing Exercise Name no support Side bilateral Equipment Used 6 step Comments UE for support balance Standing Exercise Name stagger stance on blue foam, narrow MARIELA Equipment Used blue foam Reps/Minutes 4 mins Comments difficulty with lateral weightshifting Self-Care/Home Management Treatment Education Patient Education Body Mechanics,Home Exercise Program PT-OP-T Assessment and Plan Start: 09/30/20 12:18 Freq: Status: Active Protocol: Document 11/15/20 10:28 OF (Rec: 11/15/20 12:56 OF [email or web address]) Physical Therapy Assessment Rehab Potential Rehabilitation Potential Good Evaluation Complexity Number of Personal Factors/Comorbidities 1-2 Number of Body Systems Impaired 1-2 Clinical Presentation at Evaluation Stable Impairments Impairments ROM Goals balance Impairment unable to stand on RLE Short Term Goal (STG) pt will be able to show improved balance and stability to stand on R LE >10 seconds. STG Duration 4 weeks Order Checker Goal (LTG) pt will be able to show improved balance and stability in order for him to climb ladder to work on his boat again safely LTG Duration 8 weeks gait Impairment antalgic gait Snf Goal (LTG) pt will be able to amb without the use of knee brace and show normalized gait (knee flexion during swing phaese) LTG Duration 8 weeks ROM Impairment limited R knee flexion Short Term Goal (STG) pt will be able to show increased R knee ROM up to 135 degrees without increase in pain STG Duration 4 weeks Snf Goal (LTG) pt will be able to actively flex his R knee > 90 degrees to climb stairs without discomfort LTG Duration 8 weeks LEFS Impairment pt scores 21 on LEFS Short Term Goal (STG) pt will score >35 on LEFS to show improved functional mobility and strength STG Duration 4 weeks Order Checker Goal (LTG) pt will score >45 on LEFS to show improved functional mobility and strength LTG Duration 8 weeks Progress Towards Goals Progress Towards Goals Progressing Toward Goals Assessment Summary Assessment Pt shows progress with improved tolerance for balance training, improved gait pattern without AD. He is agreeable to performing HEP with stretches Physical Therapy Plan Frequency and Duration Frequency of Treatment 1x/Week Duration of Treatment 8 weeks Plan of Care Start Date 09/30/20 Plan of Care End Date 11/29/20 Next Visit Focus/Plan Next Note Type Treatment Note Next Visit Plan Continue to progress quad strength, dynamic balance
--- NOTE | 2020-11-21 15:15 | PT.OTN ---
Current Diagnoses Other chronic pain (11/21/20) Pain in right knee (11/21/20) Physical Therapy Treatment Note PT-OP-A Visit Information Start: 09/30/20 12:18 Freq: Status: Active Protocol: Document 11/21/20 14:38 HH (Rec: 11/21/20 15:14 [id number]) Out-Patient Physical Therapy Visit Information Visit Information Visit Type Treatment Note Visit Start Time 14:35 Visit Stop Time 15:15 Total Visit Minutes 40 Visit Number PT-OP-B Current Condition Start: 09/30/20 12:18 Freq: Status: Active Protocol: Document 09/30/20 12:18 HH (Rec: 09/30/20 12:43 [email or web address]) Current Condition History of Current Condition Onset Date 3 weeks ago Current Complaints subacute R knee pain, difficulty in walking History of Current Condition Yassine is a retired 59yo male here for his new onset of R knee pain started 3 weeks ago. He stated he planted awkwardly with his R knee in a twisted position after coming off from the ladder which gave immediate sharp pain. ( unable to identify exact painful location) Since then, pt has significant difficulty in walking, climbing stair and bending/ twisting his knee. He has to walk with knee straight at this point and also c/o episodes of clicking and giving out. He has been wearing a soft knee brace to provide stability. pt stated he had been dealing with chronic knee pain for years but this is something new and worse than before. He also stated he has been having numbness and tingling at his whole lateral aspect of R leg for a few years. Prior Treatments and Tests x-ray @R knee at 09/27/20 IMPRESSION: No fracture or dislocation. Mild tricompartmental knee joint degeneration. Treatment Goals Patient/Caregiver Goals 1. to regain his full knee ROM and strength 2. 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 PT-OP-C Subjective Start: 09/30/20 12:18 Freq: Status: Active Protocol: Document 11/21/20 14:38 HH (Rec: 11/21/20 15:14 [id number]) OP-PT Subjective Patient Comments Patient Comments I felt better now. I didnt do much anything crazy for the past couple days. I also havent had any give out episode for awhile. Patient Reported Progress Improving PT-OP-F Manual Assessment Start: 09/30/20 12:18 Freq: Status: Active Protocol: Document 09/30/20 12:18 HH (Rec: 09/30/20 12:43 [email or web address]) Manual Assessments Soft Tissue Assessment Soft Tissue Mobility Assessment significant hypertoncity at distal hamstrings slight tenderness at distal patella tendon Joint Mobility Assessment Joint Mobility Assessment significant muscle guarding with PROM at R knee PT-OP-G Mobility & Gait Start: 09/30/20 12:18 Freq: Status: Active Protocol: Document 09/30/20 12:18 HH (Rec: 09/30/20 12:43 [email or web address]) OP Gait Assessment Gait Deviations General Gait Pattern Antalgic,Decreased Stride Length,Decreased Feet Clearance Factors Limiting Gait Function Factors Limiting Gait Function Decreased Activity Tolerance, Decreased Sensation,Decreased Strength,Limited Range of Motion,Pain,Poor Balance,Poor Safety Awareness Comments Gait Comments pt amb with a stiff knee pattern : decreased knee flexion during swing phase and push off during preswing. PT-OP-K Range of Motion Start: 09/30/20 12:18 Freq: Status: Active Protocol: Document 09/30/20 12:18 HH (Rec: 09/30/20 12:43 [email or web address]) Knee Goniometric Range of Motion Knee Right Knee ROM WFL No Patient Position Supine Flexion Active (degrees) 122 Extension Active (degrees) 0 Comments significant pain at R knee with end range flexion. Left Knee ROM WFL Yes Flexion Active (degrees) 135 Extension Active (degrees) 0 PT-OP-L Special Tests Start: 09/30/20 12:18 Freq: Status: Active Protocol: Document 09/30/20 12:18 HH (Rec: 09/30/20 12:43 [email or web address]) Special Tests Knee Special Tests Anterior Draw Test Results -ve PETE Test Results -ve Jared Test Test Results +Ve r Comments R lateral knee pain with knee valgus force with external rotation at R tibia relief with lateral knee traction Apley's Compression Test Results -ve Varus- 0 Degrees Test Results -ve Valgus- 25 Degrees Test Results -ve Varus- 25 Degrees Test Results -ve Valgus- 0 Degrees Test Results -ve PT-OP-M Strength Start: 09/30/20 12:18 Freq: Status: Active Protocol: Document 09/30/20 12:18 HH (Rec: 09/30/20 12:43 HH [email or web address]) Hip Strength Hip Manual Muscle Testing Right Flexion (L2) 4+ Good+ Extension (S1) 4+ Good+ Abduction 4+ Good+ Adduction 4+ Good+ Left Flexion (L2) 5 Normal Extension (S1) 5 Normal Abduction 5 Normal Adduction 5 Normal Knee Strength Knee Manual Muscle Testing Right Flexion (S2) 3+ Fair+ Extension (L3) 3+ Fair+ Comments significant pain against resistance Left Flexion (S2) 5 Normal Extension (L3) 5 Normal PT-OP-Q Treatments Start: 09/30/20 12:18 Freq: Status: Active Protocol: Document 11/21/20 14:38 HH (Rec: 11/21/20 15:14 [id number]) Gym Equipment Shuttle Recovery Unilateral Squats Resistance #50 Shuttle Recovery Platform Stable Reps/Time 12x2, pressure only, no pain Shuttle Balance red Reps/Duration 10 mins Comments WBOS, NBOS and staggered stance. cues on finding reference point to look at. Therapeutic Exercises Sitting Exercises knee flexion Equipment Used level 3 band Reps/Minutes 15x3 Comments no discomfort LAQ Side bilateral Resistance 10# Reps/Minutes 2x10, 3 sec hold Comments no pain noted. Standing Exercises calf raises Side bilateral Reps/Minutes 10x2 step up Standing Exercise Name no support Side bilateral Equipment Used 4 step Comments no UE support, cues on eccentric control weight shift Standing Exercise Name on blue foam, staggered stance . Reps/Minutes 4 mins Comments cues on anterior and posterior trunk lean. balance Standing Exercise Name stagger stance on blue foam, narrow MARIELA Equipment Used blue foam Reps/Minutes 4 mins Comments difficulty with lateral weightshifting PT-OP-T Assessment and Plan Start: 09/30/20 12:18 Freq: Status: Active Protocol: Document 11/21/20 14:38 HH (Rec: 11/21/20 15:14 [id number]) Physical Therapy Assessment Goals balance Impairment unable to stand on RLE Short Term Goal (STG) pt will be able to show improved balance and stability to stand on R LE >10 seconds. STG Duration 4 weeks Penitentiary Goal (LTG) pt will be able to show improved balance and stability in order for him to climb ladder to work on his boat again safely LTG Duration 8 weeks gait Impairment antalgic gait Penitentiary Goal (LTG) pt will be able to amb without the use of knee brace and show normalized gait (knee flexion during swing phaese) LTG Duration 8 weeks ROM Impairment limited R knee flexion Short Term Goal (STG) pt will be able to show increased R knee ROM up to 135 degrees without increase in pain STG Duration 4 weeks Heel Wheeler Goal (LTG) pt will be able to actively flex his R knee > 90 degrees to climb stairs without discomfort LTG Duration 8 weeks LEFS Impairment pt scores 21 on LEFS Short Term Goal (STG) pt will score >35 on LEFS to show improved functional mobility and strength STG Duration 4 weeks Heel Wheeler Goal (LTG) pt will score >45 on LEFS to show improved functional mobility and strength LTG Duration 8 weeks Assessment Summary Assessment Pt stated his knee is more stable and has not had any buckling episode since started therapy. This session focused on balance activities and SL strengthening ex, pt shyann very well. Physical Therapy Plan Frequency and Duration Frequency of Treatment 1x/Week Duration of Treatment 8 weeks Plan of Care Start Date 09/30/20 Plan of Care End Date 11/29/20 Therapeutic Interventions Therapeutic Interventions Aquatic Therapy,Balance Training,Gait Training,Home Exercise Program,Joint Mobilizations,Manual Therapy, Neuromuscular Re-education, Patient/Caregiver Education, Self-Care/Home Management,Soft Tissue Mobilization,Taping, Therapeutic Activities, Therapeutic Exercises Modalities Biofeedback,Cold Pack/Ice Massage,Electric Stimulation, Hot Packs,Infrared Therapy, Iontophoresis,Traction- Mechanical,Ultrasound Next Visit Focus/Plan Next Note Type Treatment Note Next Visit Plan Continue to progress quad strength, dynamic balance
--- NOTE | 2020-11-30 10:28 | PT.OTN ---
Current Diagnoses Other chronic pain (11/30/20) Pain in right knee (11/30/20) Physical Therapy Treatment Note PT-OP-A Visit Information Start: 09/30/20 12:18 Freq: Status: Active Protocol: Document 11/30/20 09:48 HH (Rec: 11/30/20 10:28 [id number]) Out-Patient Physical Therapy Visit Information Visit Information Visit Type Discharge Summary Visit Start Time 09:48 Visit Stop Time 10:30 Total Visit Minutes 42 Visit Number 14 PT-OP-B Current Condition Start: 09/30/20 12:18 Freq: Status: Active Protocol: Document 09/30/20 12:18 HH (Rec: 09/30/20 12:43 HH [email or web address]) Current Condition History of Current Condition Onset Date 3 weeks ago Current Complaints subacute R knee pain, difficulty in walking History of Current Condition Yassine is a retired 59yo male here for his new onset of R knee pain started 3 weeks ago. He stated he planted awkwardly with his R knee in a twisted position after coming off from the ladder which gave immediate sharp pain. ( unable to identify exact painful location) Since then, pt has significant difficulty in walking, climbing stair and bending/ twisting his knee. He has to walk with knee straight at this point and also c/o episodes of clicking and giving out. He has been wearing a soft knee brace to provide stability. pt stated he had been dealing with chronic knee pain for years but this is something new and worse than before. He also stated he has been having numbness and tingling at his whole lateral aspect of R leg for a few years. Prior Treatments and Tests x-ray @R knee at 09/27/20 IMPRESSION: No fracture or dislocation. Mild tricompartmental knee joint degeneration. Treatment Goals Patient/Caregiver Goals 1. to regain his full knee ROM and strength 2. 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 PT-OP-C Subjective Start: 09/30/20 12:18 Freq: Status: Active Protocol: Document 11/30/20 09:48 HH (Rec: 11/30/20 10:28 [id number]) OP-PT Subjective Patient Comments Patient Comments Lilia been walking better. I climbed some stairs and i have some discomfort but it went away. Patient Reported Progress Improving Patient Questionnaires Lower Extremity Functional Scale LEFS Score 64 LEFS Impairment 1 to 19% Impaired (Score 63-79 ) PT-OP-F Manual Assessment Start: 09/30/20 12:18 Freq: Status: Active Protocol: Document 09/30/20 12:18 HH (Rec: 09/30/20 12:43 [email or web address]) Manual Assessments Soft Tissue Assessment Soft Tissue Mobility Assessment significant hypertoncity at distal hamstrings slight tenderness at distal patella tendon Joint Mobility Assessment Joint Mobility Assessment significant muscle guarding with PROM at R knee PT-OP-G Mobility & Gait Start: 09/30/20 12:18 Freq: Status: Active Protocol: Document 09/30/20 12:18 HH (Rec: 09/30/20 12:43 [email or web address]) OP Gait Assessment Gait Deviations General Gait Pattern Antalgic,Decreased Stride Length,Decreased Feet Clearance Factors Limiting Gait Function Factors Limiting Gait Function Decreased Activity Tolerance, Decreased Sensation,Decreased Strength,Limited Range of Motion,Pain,Poor Balance,Poor Safety Awareness Comments Gait Comments pt amb with a stiff knee pattern : decreased knee flexion during swing phase and push off during preswing. PT-OP-K Range of Motion Start: 09/30/20 12:18 Freq: Status: Active Protocol: Document 09/30/20 12:18 HH (Rec: 09/30/20 12:43 [email or web address]) Knee Goniometric Range of Motion Knee Right Knee ROM WFL No Patient Position Supine Flexion Active (degrees) 122 Extension Active (degrees) 0 Comments significant pain at R knee with end range flexion. Left Knee ROM WFL Yes Flexion Active (degrees) 135 Extension Active (degrees) 0 PT-OP-L Special Tests Start: 09/30/20 12:18 Freq: Status: Active Protocol: Document 09/30/20 12:18 HH (Rec: 09/30/20 12:43 [email or web address]) Special Tests Knee Special Tests Anterior Draw Test Results -ve PETE Test Results -ve Jared Test Test Results +Ve r Comments R lateral knee pain with knee valgus force with external rotation at R tibia relief with lateral knee traction Apley's Compression Test Results -ve Varus- 0 Degrees Test Results -ve Valgus- 25 Degrees Test Results -ve Varus- 25 Degrees Test Results -ve Valgus- 0 Degrees Test Results -ve PT-OP-M Strength Start: 09/30/20 12:18 Freq: Status: Active Protocol: Document 09/30/20 12:18 HH (Rec: 09/30/20 12:43 HH [email or web address]) Hip Strength Hip Manual Muscle Testing Right Flexion (L2) 4+ Good+ Extension (S1) 4+ Good+ Abduction 4+ Good+ Adduction 4+ Good+ Left Flexion (L2) 5 Normal Extension (S1) 5 Normal Abduction 5 Normal Adduction 5 Normal Knee Strength Knee Manual Muscle Testing Right Flexion (S2) 3+ Fair+ Extension (L3) 3+ Fair+ Comments significant pain against resistance Left Flexion (S2) 5 Normal Extension (L3) 5 Normal PT-OP-Q Treatments Start: 09/30/20 12:18 Freq: Status: Active Protocol: Document 11/30/20 09:48 HH (Rec: 11/30/20 10:28 [id number]) Cardio Equipment Recumbent Bicycle Duration (Minutes) 10 Resistance 6 Seat Position 9 Therapeutic Exercises Sitting Exercises LAQ Side bilateral Resistance 10# Reps/Minutes 2x10, 3 sec hold Comments no pain noted. Standing Exercises SL balance Comments L=45, R=40 calf raises Side bilateral Reps/Minutes 10x2 Comments for HEP step up Standing Exercise Name no support Side bilateral Equipment Used 4 step Comments no UE support, cues on eccentric control Self-Care/Home Management Treatment Education Patient Education Body Mechanics,Home Exercise Program Other Education educated pt to comply to HEP 3 times/ week for continuous strengthening. start walking without knee brace in the house and progress to outdoor activities. wear knee brace for boating and ladder activities. PT-OP-T Assessment and Plan Start: 09/30/20 12:18 Freq: Status: Active Protocol: Document 11/30/20 09:48 HH (Rec: 11/30/20 10:28 [id number]) Physical Therapy Assessment Goals balance Impairment unable to stand on RLE Short Term Goal (STG) 11/30/20 goal met L=45. R= 40s pt will be able to show improved balance and stability to stand on R LE >10 seconds. STG Duration 4 weeks Resource Engineer Goal (LTG) pt will be able to show improved balance and stability in order for him to climb ladder to work on his boat again safely LTG Duration 8 weeks gait Impairment antalgic gait Short Term Goal (STG) 11/30/20 continue to progress pt shows close to normal gait but he is still wearing knee brace Resource Engineer Goal (LTG) pt will be able to amb without the use of knee brace and show normalized gait (knee flexion during swing phaese) LTG Duration 8 weeks ROM Impairment limited R knee flexion Short Term Goal (STG) 11/30/20 goal met pt is able to show increased R knee ROM up to 145 degrees without increase in pain STG Duration 4 weeks Fpc Goal (LTG) 11/30/20 goal met pt is able to actively flex his R knee > 90 degrees to climb stairs without discomfort LTG Duration 8 weeks LEFS Impairment pt scores 21 on LEFS Short Term Goal (STG) pt will score >35 on LEFS to show improved functional mobility and strength STG Duration 4 weeks Resource Engineer Goal (LTG) 11/30/20 goal met pt scores 64 points on LEFS to show improved functional mobility and strength LTG Duration 8 weeks Progress Towards Goals Progress Towards Goals Goals Met Assessment Summary Assessment pt's POC ended 11/29/20. Reassessment completed today. pt met all his goals today with improved ROM, strength and balance. Pt is satisfied with his progress and requested to be DC from PT. Spent time educated pt to wear knee brace for boating and climbing activities. Physical Therapy Plan Frequency and Duration Frequency of Treatment 1x/Week Duration of Treatment 8 weeks Plan of Care Start Date 11/30/20 Plan of Care End Date 11/30/20 Therapeutic Interventions Therapeutic Interventions Aquatic Therapy,Balance Training,Gait Training,Home Exercise Program,Joint Mobilizations,Manual Therapy, Neuromuscular Re-education, Patient/Caregiver Education, Self-Care/Home Management,Soft Tissue Mobilization,Taping, Therapeutic Activities, Therapeutic Exercises Modalities Biofeedback,Cold Pack/Ice Massage,Electric Stimulation, Hot Packs,Infrared Therapy, Iontophoresis,Traction- Mechanical,Ultrasound Discharge Physical Therapy Discharge Reasons Goals Met
--- NOTE | 2020-11-30 10:29 | PT.OPPOC ---
Physical, Occupational & Speech Therapy At [facility] Current Diagnoses Other chronic pain (11/30/20) Pain in right knee (11/30/20) Visit Care Team Role Provider Type Abner Jay MD Attending Provider Physician Primary Care Provider Referring Provider Specialty: Internal Medicine Address: [address] [place] [address], [id number] Email: [email or web address] Plan Of Care PT-OP-T Assessment and Plan Start: 09/30/20 12:18 Freq: Status: Active Protocol: Document 11/30/20 09:48 HH (Rec: 11/30/20 10:28 HH [id number]) Physical Therapy Assessment Goals balance Impairment unable to stand on RLE Short Term Goal (STG) 11/30/20 goal met L=45. R= 40s pt will be able to show improved balance and stability to stand on R LE >10 seconds. STG Duration 4 weeks Fci Goal (LTG) pt will be able to show improved balance and stability in order for him to climb ladder to work on his boat again safely LTG Duration 8 weeks gait Impairment antalgic gait Short Term Goal (STG) 11/30/20 continue to progress pt shows close to normal gait but he is still wearing knee brace Fci Goal (LTG) pt will be able to amb without the use of knee brace and show normalized gait (knee flexion during swing phaese) LTG Duration 8 weeks ROM Impairment limited R knee flexion Short Term Goal (STG) 11/30/20 goal met pt is able to show increased R knee ROM up to 145 degrees without increase in pain STG Duration 4 weeks Fci Goal (LTG) 11/30/20 goal met pt is able to actively flex his R knee > 90 degrees to climb stairs without discomfort LTG Duration 8 weeks LEFS Impairment pt scores 21 on LEFS Short Term Goal (STG) pt will score >35 on LEFS to show improved functional mobility and strength STG Duration 4 weeks Trailer Park Manager Goal (LTG) 11/30/20 goal met pt scores 64 points on LEFS to show improved functional mobility and strength LTG Duration 8 weeks Progress Towards Goals Progress Towards Goals Goals Met Assessment Summary Assessment pt's POC ended 11/29/20. Reassessment completed today. pt met all his goals today with improved ROM, strength and balance. Pt is satisfied with his progress and requested to be DC from PT. Spent time educated pt to wear knee brace for boating and climbing activities. Physical Therapy Plan Frequency and Duration Frequency of Treatment 1x/Week Duration of Treatment 8 weeks Plan of Care Start Date 11/30/20 Plan of Care End Date 11/30/20 Therapeutic Interventions Therapeutic Interventions Aquatic Therapy,Balance Training,Gait Training,Home Exercise Program,Joint Mobilizations,Manual Therapy, Neuromuscular Re-education, Patient/Caregiver Education, Self-Care/Home Management,Soft Tissue Mobilization,Taping, Therapeutic Activities, Therapeutic Exercises Modalities Biofeedback,Cold Pack/Ice Massage,Electric Stimulation, Hot Packs,Infrared Therapy, Iontophoresis,Traction- Mechanical,Ultrasound Discharge Physical Therapy Discharge Reasons Goals Met Plan of Care Dates Plan of Care Start Date 11/30/20 Plan of Care End Date 11/30/20 Electronically Signed by: Trevor Reeves PT 11/30/20 1026 Please Sign and Return: I have reviewed this Plan of Care and certify that the skilled therapy services above are required to meet the patient?s needs. Physician Signature Date Printed Name and Credentials Clinical Instructor Signature Printed Name and Credentials
--- NOTE | 2020-11-30 10:29 | PT.OPPOC ---
Physical, Occupational & Speech Therapy At [facility] Current Diagnoses Other chronic pain (11/30/20) Pain in right knee (11/30/20) Visit Care Team Role Provider Type Abner Jay MD Attending Provider Physician Primary Care Provider Referring Provider Specialty: Internal Medicine Address: [address] [place] [address], [id number] Email: [email or web address] Plan Of Care PT-OP-T Assessment and Plan Start: 09/30/20 12:18 Freq: Status: Active Protocol: Document 11/30/20 09:48 HH (Rec: 11/30/20 10:28 HH [id number]) Physical Therapy Assessment Goals balance Impairment unable to stand on RLE Short Term Goal (STG) 11/30/20 goal met L=45. R= 40s pt will be able to show improved balance and stability to stand on R LE >10 seconds. STG Duration 4 weeks Senior Care Goal (LTG) pt will be able to show improved balance and stability in order for him to climb ladder to work on his boat again safely LTG Duration 8 weeks gait Impairment antalgic gait Short Term Goal (STG) 11/30/20 continue to progress pt shows close to normal gait but he is still wearing knee brace Senior Care Goal (LTG) pt will be able to amb without the use of knee brace and show normalized gait (knee flexion during swing phaese) LTG Duration 8 weeks ROM Impairment limited R knee flexion Short Term Goal (STG) 11/30/20 goal met pt is able to show increased R knee ROM up to 145 degrees without increase in pain STG Duration 4 weeks Senior Care Goal (LTG) 11/30/20 goal met pt is able to actively flex his R knee > 90 degrees to climb stairs without discomfort LTG Duration 8 weeks LEFS Impairment pt scores 21 on LEFS Short Term Goal (STG) pt will score >35 on LEFS to show improved functional mobility and strength STG Duration 4 weeks Web Site Admin Goal (LTG) 11/30/20 goal met pt scores 64 points on LEFS to show improved functional mobility and strength LTG Duration 8 weeks Progress Towards Goals Progress Towards Goals Goals Met Assessment Summary Assessment pt's POC ended 11/29/20. Reassessment completed today. pt met all his goals today with improved ROM, strength and balance. Pt is satisfied with his progress and requested to be DC from PT. Spent time educated pt to wear knee brace for boating and climbing activities. Physical Therapy Plan Frequency and Duration Frequency of Treatment 1x/Week Duration of Treatment 8 weeks Plan of Care Start Date 11/30/20 Plan of Care End Date 11/30/20 Therapeutic Interventions Therapeutic Interventions Aquatic Therapy,Balance Training,Gait Training,Home Exercise Program,Joint Mobilizations,Manual Therapy, Neuromuscular Re-education, Patient/Caregiver Education, Self-Care/Home Management,Soft Tissue Mobilization,Taping, Therapeutic Activities, Therapeutic Exercises Modalities Biofeedback,Cold Pack/Ice Massage,Electric Stimulation, Hot Packs,Infrared Therapy, Iontophoresis,Traction- Mechanical,Ultrasound Discharge Physical Therapy Discharge Reasons Goals Met Plan of Care Dates Plan of Care Start Date 11/30/20 Plan of Care End Date 11/30/20 Electronically Signed by: Trevor Reeves PT 11/30/20 102 Please Sign and Return: I have reviewed this Plan of Care and certify that the skilled therapy services above are required to meet the patient?s needs. Physician Signature Date Printed Name and Credentials Clinical Instructor Signature Printed Name and Credentials
[2021-03-23 16:28] LABS: Appearance Urine UA CLEAR; Bilirubin Urine UA NEGATIVE (NEGATIVE); Color Urine UA YELLOW; Glucose Urine UA NEGATIVE (Negative); Ketones Urine UA NEGATIVE (NEGATIVE); Leukocyte Esterase Urine UA NEGATIVE (NEGATIVE); Nitrite Urine UA NEGATIVE (Negative); Occult Blood Urine UA NEGATIVE (Negative); Protein Urine UA NEGATIVE (Negative); Specific Gravity Urine UA <=1.005 (1.000-1.035); Urobilinogen Urine UA 0.2 E.U./dL (0.2); pH Urine UA 6.5 (4.5-8.0)
[2021-03-23 16:55] LABS: RBC Urine None Seen (0-5/HPF); Squamous Epithelial Cell Urine 0-1 /HPF (0-5/HPF); WBC Urine 0-1/HPF (0-5/HPF)
[2021-03-23 16:56] LABS: Bacteria Urine None Seen; Culture Indicated Urine Cult Not Indicated
== END 2021-01-05 14:53 | disposition home or self-care (01) ==
LOC: PHYS 09:45
PROVIDERS: PCP Student in an Organized Health Care Education/Training Program; Referring Provider Student in an Organized Health Care Education/Training Program; Visit Provider Student in an Organized Health Care Education/Training Program
DX: M25.561 Pain in right knee (principal); G89.29 Other chronic pain
CPT/HCPCS: 81001; 97110; 97140; 97162; 97535

== ENCOUNTER → 2021-03-23 12:29 | Outpatient (CLI) | payer OTHER, SELFPAY ==
[2021-03-23 13:08] LABS: Add Manual Diff / Slide Review NO; Basophils Absolute Auto 100 /uL (0-100); Basophils Percent Auto 0.8 % (0-2); Eosinophils Absolute Auto 100 /uL (0-450); Eosinophils Percent Auto 1.9 % (2-4); Lymphocytes Absolute Auto 1100 /uL (1100-4500); Mean Corpuscular HGB Conc 31.6 % (30-36); Mean Corpuscular Hemoglobin 24.5 PG (26-34); Mean Corpuscular Volume 77.7 fL (80-100); Monocytes Absolute Auto 400 /uL (0-900); Monocytes Percent Auto 6.2 % (3-14); Neutrophils Absolute Auto 5000 /uL (1500-7000); Neutrophils Percent Auto 75.1 % (50-75); Platelet Count 166 X10^3/uL (150-400); Red Cell Distribution Width 17.7 % (11.6-14.8); White Blood Cell Count 6.6 X10^3/uL (4.5-11.0)
[2021-03-23 13:13] LABS: Hematocrit 56.1 % (41-53); Hemoglobin 17.7 g/dL (13.5-17.5); Red Blood Cell Count 7.22 X10^6/uL (4.5-5.9)
[2021-03-23 13:22] LABS: HEMOLYSIS 18 (0-50); Iron 123 ug/dL (49-181)
[2021-03-23 13:25] LABS: Alanine Aminotransferase 61 IU/L (<50); Albumin 4.3 g/dL (3.5-5.0); Albumin Globulin Ratio 1.3 (1.0-2.8); Alkaline Phosphatase 130 U/L (38-126); Aspartate Aminotransferase 45 IU/L (17-59); BUN Creatinine Ratio 19.8 (6-22); Bilirubin Total 1.3 mg/dL (0.2-1.3); Blood Urea Nitrogen 17 mg/dL (9-20); Calcium 9.9 mg/dL (8.4-10.2); Carbon Dioxide 34 mmol/L (22-32); Chloride 96 mmol/L (98-107); Estimated Glomerular Filt Rate > 60.0 mL/min (>60); Globulin 3.2 g/dL (1.7-4.1); Glucose 98 mg/dL (80-110); HEMOLYSIS 16 (0-50); Potassium 4.5 mmol/L (3.4-5.1); Sodium 135 mmol/L (137-145); Total Protein 7.5 g/dL (6.3-8.2)
[2021-03-23 13:34] LABS: Percent Iron Saturation 33 % (20-50); Total Iron Binding Capacity 368 ug/dL (261-462); Transferrin 274 mg/dL (206-381)
[2021-03-23 14:02] LABS: Ferritin 19 ng/mL (18-464); Testosterone 603 ng/dL (71.8-623)
== END ==
PROVIDERS: PCP Student in an Organized Health Care Education/Training Program; Referring Provider Student in an Organized Health Care Education/Training Program; Visit Provider Student in an Organized Health Care Education/Training Program
DX: G40.409 Other generalized epilepsy and epileptic syndromes, not intractable, without status epilepticus (principal); I63.9 Cerebral infarction, unspecified; D75.1 Secondary polycythemia; G47.33 Obstructive sleep apnea (adult) (pediatric); R79.89 Other specified abnormal findings of blood chemistry; Z79.899 Other long term (current) drug therapy
CPT/HCPCS: 36415; 80053; 81001; 82728; 83540; 83550; 84403; 85025

== ENCOUNTER → 2021-05-10 10:35 | Outpatient (CLI) | payer OTHER, SELFPAY ==
[2021-05-10 12:03] LABS: Hematocrit 55.2 % (41-53); Hemoglobin 17.8 g/dL (13.5-17.5); Mean Corpuscular HGB Conc 32.3 % (30-36); Mean Corpuscular Volume 80.4 fL (80-100); Platelet Count 181 X10^3/uL (150-400); Red Blood Cell Count 6.87 X10^6/uL (4.5-5.9); Red Cell Distribution Width 18.6 % (11.6-14.8); White Blood Cell Count 5.9 X10^3/uL (4.5-11.0)
[2021-05-10 12:40] LABS: Alanine Aminotransferase 48 IU/L (<50); Albumin 4.4 g/dL (3.5-5.0); Albumin Globulin Ratio 1.4 (1.0-2.8); Alkaline Phosphatase 86 U/L (38-126); Aspartate Aminotransferase 37 IU/L (17-59); Cholesterol 146 mg/dL (140-199); Globulin 3.1 g/dL (1.7-4.1); HDL Cholesterol 43 mg/dL (40-60); HEMOLYSIS 19 (0-50); LDL Cholesterol Calculated 79 mg/dL (<100); Total Protein 7.5 g/dL (6.3-8.2); Triglycerides 118 mg/dL (35-150)
[2021-05-10 13:13] LABS: Testosterone 172 ng/dL (71.8-623)
[2021-05-10 13:14] LABS: TSH w/ Reflex to FT4 0.81 uIU/mL (0.47-4.68)
[2021-05-10 13:30] LABS: Vitamin B12 748 pg/mL (239-931)
== END ==
PROVIDERS: Family Provider Student in an Organized Health Care Education/Training Program; PCP Student in an Organized Health Care Education/Training Program; Referring Provider Student in an Organized Health Care Education/Training Program; Visit Provider Student in an Organized Health Care Education/Training Program
DX: D75.1 Secondary polycythemia (principal); G47.33 Obstructive sleep apnea (adult) (pediatric); R79.89 Other specified abnormal findings of blood chemistry; Z79.899 Other long term (current) drug therapy; I63.349 Cerebral infarction due to thrombosis of unspecified cerebellar artery; F32.9 Major depressive disorder, single episode, unspecified
CPT/HCPCS: 36415; 80061; 80076; 82607; 84403; 84443; 85027

== ENCOUNTER → 2021-05-30 11:40 | Outpatient (CLI) | payer OTHER, SELFPAY ==
--- NOTE | 2021-05-30 11:41 | DI.RAD.S_ITS ---
PROCEDURE: XR LUMBAR SPINE 2-3V INDICATIONS: BACK PAIN TECHNIQUE: Two views of the lumbar spine were acquired. COMPARISON: [facility], CT, CT CHEST WITHOUT CONTRAST, 08/29/2017, 11:43. [facility], CR, XR CHEST 1V, 12/14/2019, 13:52. [facility], CR, XR CHEST 2VW, 01/10/2017, 15:32. FINDINGS: There are 5 [id number] lumbar type vertebral bodies. Mild levoscoliosis at the thoracolumbar junction. No listhesis. Age indeterminate T12 vertebral body height loss, not present on prior studies as recent as December 2019. Remaining vertebral body heights maintained. Yanu-nb-tnutmtgf changes at the thoracolumbar junction and in the lower lumbar spine IMPRESSION: Age-indeterminate height loss at T12. Correlate for any point tenderness to exclude potential for acute fracture. Cross-sectional imaging could be considered if this is of clinical concern. Psyg-xo-[id number] degenerative changes of the thoracolumbar junction and in the lower lumbar spine. Consider MRI for further evaluation, particularly if there are radicular symptoms. Dictated by: Aaron Holloway M.D. on 05/30/2021 at 13:51 Approved by: Aaron Holloway M.D. on 05/30/2021 at 13:52
== END ==
PROVIDERS: Family Provider Student in an Organized Health Care Education/Training Program; PCP Student in an Organized Health Care Education/Training Program; Referring Provider Student in an Organized Health Care Education/Training Program; Visit Provider Student in an Organized Health Care Education/Training Program
DX: M54.50 Low back pain, unspecified (principal); M47.815 Spondylosis without myelopathy or radiculopathy, thoracolumbar region
CPT/HCPCS: 72100

== ENCOUNTER → 2021-06-05 14:15 | Outpatient (CLI) | payer OTHER, SELFPAY ==
[2021-06-05 16:15] LABS: COVID19 -Nasal RAPID Negative (Negative)
== END ==
PROVIDERS: Family Provider Student in an Organized Health Care Education/Training Program; PCP Student in an Organized Health Care Education/Training Program; Referring Provider Physician Assistant; Visit Provider Physician Assistant
DX: Z20.822 Contact with and (suspected) exposure to COVID-19 (principal)
CPT/HCPCS: 87635

== ENCOUNTER → 2021-07-03 10:48 | Outpatient (CLI) | payer OTHER, SELFPAY ==
[2021-07-03 11:41] LABS: Hematocrit 54.7 % (41-53); Hemoglobin 18.1 g/dL (13.5-17.5); Mean Corpuscular HGB Conc 33.2 % (30-36); Mean Corpuscular Hemoglobin 28.5 PG (26-34); Mean Corpuscular Volume 85.8 fL (80-100); Platelet Count 174 X10^3/uL (150-400); Red Blood Cell Count 6.37 X10^6/uL (4.5-5.9); Red Cell Distribution Width 16.8 % (11.6-14.8); White Blood Cell Count 6.9 X10^3/uL (4.5-11.0)
[2021-07-03 12:40] LABS: Testosterone 307 ng/dL (71.8-623)
== END ==
PROVIDERS: Family Provider Student in an Organized Health Care Education/Training Program; PCP Student in an Organized Health Care Education/Training Program; Referring Provider Student in an Organized Health Care Education/Training Program; Visit Provider Student in an Organized Health Care Education/Training Program
DX: D75.1 Secondary polycythemia (principal); R79.89 Other specified abnormal findings of blood chemistry
CPT/HCPCS: 36415; 84403; 85027

== ENCOUNTER 2021-07-04 09:45 | Outpatient (RCR) | payer OTHER, SELFPAY ==
--- NOTE | 2021-04-05 14:12 | PT.OPPOC ---
Physical, Occupational & Speech Therapy At [facility] Current Diagnoses Dorsalgia, unspecified (04/05/21) Lower abdominal pain, unspecified (04/05/21) Visit Care Team Role Provider Type Abner Jay MD Attending Provider Physician Family Provider Primary Care Provider Referring Provider Specialty: Internal Medicine Address: [address] [place] [address], [address], [facility] Email: [email or web address] Plan Of Care PT-OP-T Assessment and Plan Start: 04/05/21 11:19 Freq: Status: Active Protocol: Document 04/05/21 11:15 [facility] (Rec: 04/12/21 13:52 [facility] [email or web address]) Physical Therapy Assessment Rehab Potential Rehabilitation Potential Good Evaluation Complexity Number of Personal Factors/Comorbidities 1-2 Number of Body Systems Impaired 3 Clinical Presentation at Evaluation Evolving Impairments Impairments Activity Tolerance,Functional Activities,Functional Mobility ,Pain,Posture,Soft Tissue Mobility,Strength Goals Pt reports reduced pain with bowel movements Impairment pain with bowel movements Care Home Goal (LTG) pt reports a overall reduction in pelvic floor and abdominal pain with bowel movements LTG Duration 8 weeks pt is educated on stretches for pelvic pain Impairment pt lack s a HEP/stretches for pelvic pain Short Term Goal (STG) Yassine is educated on stretches he can work on to open up his pelvis and reduce tension in the pelvic floor STG Duration 4 weeks Decrease complaints of pelvic pain and abdominal pain Care Home Goal (LTG) patient is able to reduce pain from 8/10 to 3-4/10 LTG Duration 8 weeks Assessment Summary Assessment Yassine is a 60 year old male referred to PT for complaints of abdominal, pelvic pain and low back pain. His pain is chronic in nature. Yassine reports he has tried pelvic floor PT before and his problem is that when his muscles are released with manual therapy they tighten back up again right afterwards . He doesn't currently have a stretching program that he is working on so treatment may start here. Yassine was hospitalized in [place] 2000 for seizure like activity . He reports that since this time he has had increased tightness in his abdomen. With evaluation today it was difficult to palpate his abdomen as it felt turgid and very tight as well as being painful. I educated Yassine on diaphragmatic breathing and we worked on this approx 5 min. This helped Yassine to relax his abdominal wall and I was able to palpate. His areas of fascial restriction appear to be the descending colon and iliopsoas region as well as the suprapubic fasica . Due to time constraints pelvic floor was not evaluated today. Will need further evaluation for the pelvic floor. The patient was started today on breathing techniques and a self massage for the abdominal wall which he tolerated well. Physical Therapy Plan Frequency and Duration Frequency of Treatment 1x/Week Duration of Treatment 8 Plan of Care Start Date 04/05/21 Plan of Care End Date 06/05/21 Therapeutic Interventions Therapeutic Interventions Home Exercise Program,Manual Therapy,Neuromuscular Re- education,Patient/Caregiver Education,Self-Care/Home Management,Soft Tissue Mobilization,Therapeutic Exercises Next Visit Focus/Plan Next Note Type Treatment Note Next Visit Plan review diaphragmatic breathing and colon massage, begin working on stretches for the pelvic floor, trial of adductor release next visit. Plan of Care Dates Plan of Care Start Date 04/05/21 Plan of Care End Date 06/05/21 Electronically Signed by: Maria E Giang, PT 04/12/21 1948 Please Sign and Return: I have reviewed this Plan of Care and certify that the skilled therapy services above are required to meet the patient?s needs. Physician Signature Date Printed Name and Credentials Clinical Instructor Signature Printed Name and Credentials
--- NOTE | 2021-04-05 14:14 | PT.OIE ---
Current Diagnoses Dorsalgia, unspecified (04/05/21) Lower abdominal pain, unspecified (04/05/21) Past Medical History (Last Updated 09/27/20 @ 20:27 by Abner Jay MD) Anxiety (1991) Atrial fibrillation (1988) Chronic prostatitis (Unknown) Depression (1991) Fractures (1983) Herpes (1996) History of facial surgery (1983) History of parathyroid surgery (2009) Hx of toe surgery (2006) Hyperlipidemia Hypertension (1999) Low testosterone (2011) Rheumatoid arthritis (1999) Past Surgical History (Last Updated 04/02/20 @ 21:00 by Abner Jay MD) History of facial surgery (1983) History of parathyroid surgery (2009) Hx of toe surgery (2006) Visit Care Team Role Provider Type Abner Jay MD Attending Provider Physician Family Provider Primary Care Provider Referring Provider Specialty: Internal Medicine Address: [address] [place] [address], [facility] Email: [email or web address] Physical Therapy Initial Evaluation PT-OP-A Visit Information Start: 04/05/21 11:19 Freq: Status: Active Protocol: Document 04/05/21 11:15 [facility] (Rec: 04/12/21 13:39 [facility] [id number]) Out-Patient Physical Therapy Visit Information Visit Information Visit Type Initial Evaluation Visit Start Time 11:15 Visit Stop Time 12:00 Total Visit Minutes 45 Visit Number 1 Evaluation Information Evaluation Date 04/05/21 PT-OP-B Current Condition Start: 04/05/21 11:19 Freq: Status: Active Protocol: Document 04/05/21 11:15 [facility] (Rec: 04/05/21 11:39 [facility] [id number]) Current Condition History of Current Condition Onset Date 2007 Current Complaints pelvic pain, low back pain, abdominal pain History of Current Condition pt reports in 2007 woke up with intense groin pain, 3 years later he hasn't been able to work due to pain. He has had some nerves cauterized to see if that would help. 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 He reports he has had PT for his pelvic floor but it seems to tighten back up after it has been relaxed. He reports having 2 seizures the 02 of March in [place]. He spent a week in the hospital in [place]. He feels like his abdominal wall is rock hard at this time. He wasn't able to stand until last week. He feels like his abdominal wall is cramping and has LBP. Pt has had PT for his pelvic floor and with manual therapy techniques he can get it to relax but it wont stay relaxed . Pain with bowel movement, and after bowel movements. Voids 1 xm at night and every 2 hours during the day. Sitting is limited to 10 minutes. pt has a history of head injury in . Treatment Goals Patient/Caregiver Goals pts goals are to reduce c/o abdominal and pelvic pain PT-OP-C Subjective Start: 04/05/21 11:19 Freq: Status: Active Protocol: Document 04/05/21 11:15 [facility] (Rec: 04/12/21 13:52 [facility] [id number]) Patient Questionnaires Oswestry Low Back Index Oswestry Score 35 Oswestry Impairment 20 to 39% Impaired (Score 20- 39) OP-PT Pain Assessment Location low back Pain Location Details low back Intensity 7 Scale Used Numeric (0 - 10) suprapubic fascia Pain Location Details suprapubic fascia, bladder, abdominal wall Intensity 8 Scale Used Numeric (0 - 10) PT-OP-F Manual Assessment Start: 04/05/21 11:19 Freq: Status: Active Protocol: Document 04/05/21 11:15 [facility] (Rec: 04/12/21 13:52 [facility] [email or web address]) Manual Assessments Soft Tissue Assessment Soft Tissue Mobility Assessment tightness across the abdominal wall, descending colon, suprapubic fascia, low back lumbar paraspinals PT-OP-J Posture/Palpation/Skin Start: 04/05/21 11:19 Freq: Status: Active Protocol: Document 04/05/21 11:15 [facility] (Rec: 04/12/21 13:52 [facility] [email or web address]) Palpation Assessment Location adductors Palpation Findings Soft Tissue Tightness,Muscle Guarding Palpation Details left greater than right adductor spasm lumbar paraspinals Palpation Findings Soft Tissue Tightness,Spasm, Muscle Guarding descending colon Palpation Findings Muscle Guarding,Tenderness suprapubic fascia Palpation Findings Soft Tissue Tightness,Muscle Guarding,Tenderness PT-OP-Q Treatments Start: 04/05/21 11:19 Freq: Status: Active Protocol: Document 04/05/21 11:15 [facility] (Rec: 04/12/21 13:52 [facility] [email or web address]) Manual Therapy Treatment Soft Tissue Mobilization ILU self abdominal massage Mobilization Type Myofascial Release Intensity/Depth Superficial Body Position Hooklying Comments pt educated in Self massage for home PT-OP-T Assessment and Plan Start: 04/05/21 11:19 Freq: Status: Active Protocol: Document 04/05/21 11:15 [facility] (Rec: 04/12/21 13:52 [facility] [id number]) Physical Therapy Assessment Rehab Potential Rehabilitation Potential Good Evaluation Complexity Number of Personal Factors/Comorbidities 1-2 Number of Body Systems Impaired 3 Clinical Presentation at Evaluation Evolving Impairments Impairments Activity Tolerance,Functional Activities,Functional Mobility ,Pain,Posture,Soft Tissue Mobility,Strength Goals Pt reports reduced pain with bowel movements Impairment pain with bowel movements Fdc Goal (LTG) pt reports a overall reduction in pelvic floor and abdominal pain with bowel movements LTG Duration 8 weeks pt is educated on stretches for pelvic pain Impairment pt lack s a HEP/stretches for pelvic pain Short Term Goal (STG) Yassine is educated on stretches he can work on to open up his pelvis and reduce tension in the pelvic floor STG Duration 4 weeks Decrease complaints of pelvic pain and abdominal pain [employer] Goal (LTG) patient is able to reduce pain from 8/10 to 3-4/10 LTG Duration 8 weeks Assessment Summary Assessment Yassine is a 60 year old male referred to PT for complaints of abdominal, pelvic pain and low back pain. His pain is chronic in nature. Yassine reports he has tried pelvic floor PT before and his problem is that when his muscles are released with manual therapy they tighten back up again right afterwards . He doesn't currently have a stretching program that he is working on so treatment may start here. Yassine was hospitalized in [place] 2000 for seizure like activity . He reports that since this time he has had increased tightness in his abdomen. With evaluation today it was difficult to palpate his abdomen as it felt turgid and very tight as well as being painful. I educated Yassine on diaphragmatic breathing and we worked on this approx 5 min. This helped Yassine to relax his abdominal wall and I was able to palpate. His areas of fascial restriction appear to be the descending colon and iliopsoas region as well as the suprapubic fasica . Due to time constraints pelvic floor was not evaluated today. Will need further evaluation for the pelvic floor. The patient was started today on breathing techniques and a self massage for the abdominal wall which he tolerated well. Physical Therapy Plan Frequency and Duration Frequency of Treatment 1x/Week Duration of Treatment 8 Plan of Care Start Date 04/05/21 Plan of Care End Date 06/05/21 Therapeutic Interventions Therapeutic Interventions Home Exercise Program,Manual Therapy,Neuromuscular Re- education,Patient/Caregiver Education,Self-Care/Home Management,Soft Tissue Mobilization,Therapeutic Exercises Next Visit Focus/Plan Next Note Type Treatment Note Next Visit Plan review diaphragmatic breathing and colon massage, begin working on stretches for the pelvic floor, trial of adductor release next visit.
--- NOTE | 2021-04-19 14:06 | PT.OTN ---
Current Diagnoses Dorsalgia, unspecified (04/19/21) Lower abdominal pain, unspecified (04/19/21) Physical Therapy Treatment Note PT-OP-A Visit Information Start: 04/05/21 11:19 Freq: Status: Active Protocol: Document 04/19/21 11:19 [facility] (Rec: 04/19/21 12:43 [facility] [id number]) Out-Patient Physical Therapy Visit Information Visit Information Visit Type Treatment Note Visit Start Time 11:15 Visit Stop Time 12:00 Total Visit Minutes 45 Visit Number 2 PT-OP-B Current Condition Start: 04/05/21 11:19 Freq: Status: Active Protocol: Document 04/05/21 11:15 [facility] (Rec: 04/05/21 11:39 [facility] [id number]) Current Condition History of Current Condition Onset Date 2007 Current Complaints pelvic pain, low back pain, abdominal pain History of Current Condition pt reports in 2007 woke up with intense groin pain, 3 years later he hasn't been able to work due to pain. He has had some nerves cauterized to see if that would help. 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 He reports he has had PT for his pelvic floor but it seems to tighten back up after it has been relaxed. He reports having 2 seizures the 02 of March in [place]. He spent a week in the hospital in [place]. He feels like his abdominal wall is rock hard at this time. He wasn't able to stand until last week. He feels like his abdominal wall is cramping and has LBP. Pt has had PT for his pelvic floor and with manual therapy techniques he can get it to relax but it wont stay relaxed . Pain with bowel movement, and after bowel movements. Voids 1 xm at night and every 2 hours during the day. Sitting is limited to 10 minutes. pt has a history of head injury in . Treatment Goals Patient/Caregiver Goals pts goals are to reduce c/o abdominal and pelvic pain PT-OP-C Subjective Start: 04/05/21 11:19 Freq: Status: Active Protocol: Document 04/19/21 11:19 [facility] (Rec: 04/19/21 12:43 [facility] [id number]) OP-PT Subjective Patient Comments Patient Comments pt reports he is doing better overall and has been tryng to work on his posture. He feels tightest now in his back from his ribs to his back Patient Reported Progress Improving PT-OP-F Manual Assessment Start: 04/05/21 11:19 Freq: Status: Active Protocol: Document 04/05/21 11:15 [facility] (Rec: 04/12/21 13:52 [facility] [email or web address]) Manual Assessments Soft Tissue Assessment Soft Tissue Mobility Assessment tightness across the abdominal wall, descending colon, suprapubic fascia, low back lumbar paraspinals PT-OP-J Posture/Palpation/Skin Start: 04/05/21 11:19 Freq: Status: Active Protocol: Document 04/05/21 11:15 [facility] (Rec: 04/12/21 13:52 [facility] [email or web address]) Palpation Assessment Location adductors Palpation Findings Soft Tissue Tightness,Muscle Guarding Palpation Details left greater than right adductor spasm lumbar paraspinals Palpation Findings Soft Tissue Tightness,Spasm, Muscle Guarding descending colon Palpation Findings Muscle Guarding,Tenderness suprapubic fascia Palpation Findings Soft Tissue Tightness,Muscle Guarding,Tenderness PT-OP-Q Treatments Start: 04/05/21 11:19 Freq: Status: Active Protocol: Document 04/19/21 11:19 [facility] (Rec: 04/19/21 12:43 [facility] [id number]) Therapeutic Exercises Supine Exercises modified squat stretch Reps/Minutes hold 2 minutes windshield wipers Reps/Minutes x 20 Other Exercises single knee to chest. Reps/Minutes 2 reps each holding 30 seconds each cat cow Reps/Minutes 2x 10 reps christiano pose Reps/Minutes hold x 2 min Comments center and side to side rock backs Reps/Minutes x 10 reps Comments pt reports this stretch feels good Manual Therapy Treatment Soft Tissue Mobilization left sigmoid colon release Body Location left descending colon MFR Mobilization Type Myofascial Release Intensity/Depth Moderate Body Position Supine ILU self abdominal massage Mobilization Type Myofascial Release Intensity/Depth Superficial Body Position Hooklying Comments pt educated in Self massage for home PT-OP-T Assessment and Plan Start: 04/05/21 11:19 Freq: Status: Active Protocol: Document 04/19/21 11:15 [facility] (Rec: 04/19/21 14:06 [facility] [email or web address]) Physical Therapy Assessment Assessment Summary Assessment pt was doing much better today and had decreased tightness of the abdominal wall, we were able to start on stretches for the low back and pelvic floor today with good tolerance. Physical Therapy Plan Frequency and Duration Frequency of Treatment 1x/Week Duration of Treatment 8 Plan of Care Start Date 04/05/21 Plan of Care End Date 06/05/21 Therapeutic Interventions Therapeutic Interventions Home Exercise Program,Manual Therapy,Neuromuscular Re- education,Patient/Caregiver Education,Self-Care/Home Management,Soft Tissue Mobilization,Therapeutic Exercises Next Visit Focus/Plan Next Note Type Treatment Note Next Visit Plan continue progressing stretches , review breathing and stretches given at today's visit, MFR for the abdominal wall and suprapubic fascia
--- NOTE | 2021-04-27 09:56 | PT.OTN ---
Current Diagnoses Dorsalgia, unspecified (04/27/21) Lower abdominal pain, unspecified (04/27/21) Physical Therapy Treatment Note PT-OP-A Visit Information Start: 04/05/21 11:19 Freq: Status: Active Protocol: Document 04/27/21 09:03 [facility] (Rec: 04/27/21 09:45 [facility] [id number]) Out-Patient Physical Therapy Visit Information Visit Information Visit Type Treatment Note Visit Start Time 09:05 Visit Stop Time 09:40 Total Visit Minutes 40 Visit Number 3 PT-OP-B Current Condition Start: 04/05/21 11:19 Freq: Status: Active Protocol: Document 04/05/21 11:15 [facility] (Rec: 04/05/21 11:39 [facility] [id number]) Current Condition History of Current Condition Onset Date 2007 Current Complaints pelvic pain, low back pain, abdominal pain History of Current Condition pt reports in 2007 woke up with intense groin pain, 3 years later he hasn't been able to work due to pain. He has had some nerves cauterized to see if that would help. 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 He reports he has had PT for his pelvic floor but it seems to tighten back up after it has been relaxed. He reports having 2 seizures the 02 of March in [place]. He spent a week in the hospital in [place]. He feels like his abdominal wall is rock hard at this time. He wasn't able to stand until last week. He feels like his abdominal wall is cramping and has LBP. Pt has had PT for his pelvic floor and with manual therapy techniques he can get it to relax but it wont stay relaxed . Pain with bowel movement, and after bowel movements. Voids 1 xm at night and every 2 hours during the day. Sitting is limited to 10 minutes. pt has a history of head injury in . Treatment Goals Patient/Caregiver Goals pts goals are to reduce c/o abdominal and pelvic pain PT-OP-C Subjective Start: 04/05/21 11:19 Freq: Status: Active Protocol: Document 04/27/21 09:03 [facility] (Rec: 04/27/21 09:45 [facility] [id number]) OP-PT Subjective Patient Comments Patient Comments pt reports he was really sore following last visit. He is going to the bathroom every 3 days PT-OP-F Manual Assessment Start: 04/05/21 11:19 Freq: Status: Active Protocol: Document 04/05/21 11:15 [facility] (Rec: 04/12/21 13:52 [facility] [email or web address]) Manual Assessments Soft Tissue Assessment Soft Tissue Mobility Assessment tightness across the abdominal wall, descending colon, suprapubic fascia, low back lumbar paraspinals PT-OP-J Posture/Palpation/Skin Start: 04/05/21 11:19 Freq: Status: Active Protocol: Document 04/05/21 11:15 [facility] (Rec: 04/12/21 13:52 [facility] [email or web address]) Palpation Assessment Location adductors Palpation Findings Soft Tissue Tightness,Muscle Guarding Palpation Details left greater than right adductor spasm lumbar paraspinals Palpation Findings Soft Tissue Tightness,Spasm, Muscle Guarding descending colon Palpation Findings Muscle Guarding,Tenderness suprapubic fascia Palpation Findings Soft Tissue Tightness,Muscle Guarding,Tenderness PT-OP-Q Treatments Start: 04/05/21 11:19 Freq: Status: Active Protocol: Document 04/27/21 09:03 [facility] (Rec: 04/27/21 09:55 [facility] [email or web address]) Therapeutic Exercises Supine Exercises iliopsoas stretch Reps/Minutes 1-2 reps holding 1-2 minutes modified squat stretch Reps/Minutes hold 2 minutes Comments worked on one hip at a time as both hips together were creating LBP Other Exercises single knee to chest. Reps/Minutes 2 reps each holding 30 seconds each Manual Therapy Treatment Soft Tissue Mobilization suprapubic fascial release Body Location suprapubic fascia Mobilization Type Myofascial Release left sigmoid colon release Body Location left descending colon MFR Mobilization Type Myofascial Release Intensity/Depth Moderate Body Position Supine ILU self abdominal massage Mobilization Type Myofascial Release Intensity/Depth Superficial Body Position Hooklying Comments pt educated in Self massage for home PT-OP-T Assessment and Plan Start: 04/05/21 11:19 Freq: Status: Active Protocol: Document 04/27/21 09:03 [facility] (Rec: 04/27/21 09:55 [facility] [email or web address]) Physical Therapy Assessment Assessment Summary Assessment Pt was very guarded today and was experiencing pain both in his low back and abdomen. He reports not having a bowel movement for 3 days. Treatment focused on manual therapy but also bowel care and modification of his stretches Physical Therapy Plan Frequency and Duration Frequency of Treatment 1x/Week Duration of Treatment 8 Plan of Care Start Date 04/05/21 Plan of Care End Date 06/05/21 Therapeutic Interventions Therapeutic Interventions Home Exercise Program,Manual Therapy,Neuromuscular Re- education,Patient/Caregiver Education,Self-Care/Home Management,Soft Tissue Mobilization,Therapeutic Exercises Next Visit Focus/Plan Next Note Type Treatment Note Next Visit Plan continue progressing stretches , review breathing and stretches given at today's visit, MFR for the abdominal wall and suprapubic fascia
--- NOTE | 2021-05-16 17:26 | PT.OTN ---
Current Diagnoses Dorsalgia, unspecified (05/16/21) Lower abdominal pain, unspecified (05/16/21) Physical Therapy Treatment Note PT-OP-A Visit Information Start: 04/05/21 11:19 Freq: Status: Active Protocol: Document 05/16/21 09:50 [facility] (Rec: 05/16/21 10:08 [facility] [id number]) Out-Patient Physical Therapy Visit Information Visit Information Visit Type Treatment Note Visit Start Time 09:50 Visit Stop Time 10:35 Total Visit Minutes 45 Visit Number 4 PT-OP-B Current Condition Start: 04/05/21 11:19 Freq: Status: Active Protocol: Document 04/05/21 11:15 [facility] (Rec: 04/05/21 11:39 [facility] [id number]) Current Condition History of Current Condition Onset Date 2007 Current Complaints pelvic pain, low back pain, abdominal pain History of Current Condition pt reports in 2007 woke up with intense groin pain, 3 years later he hasn't been able to work due to pain. He has had some nerves cauterized to see if that would help. 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 He reports he has had PT for his pelvic floor but it seems to tighten back up after it has been relaxed. He reports having 2 seizures the 02 of March in [place]. He spent a week in the hospital in [place]. He feels like his abdominal wall is rock hard at this time. He wasn't able to stand until last week. He feels like his abdominal wall is cramping and has LBP. Pt has had PT for his pelvic floor and with manual therapy techniques he can get it to relax but it wont stay relaxed . Pain with bowel movement, and after bowel movements. Voids 1 xm at night and every 2 hours during the day. Sitting is limited to 10 minutes. pt has a history of head injury in . Treatment Goals Patient/Caregiver Goals pts goals are to reduce c/o abdominal and pelvic pain PT-OP-C Subjective Start: 04/05/21 11:19 Freq: Status: Active Protocol: Document 05/16/21 09:50 [facility] (Rec: 05/16/21 10:08 [facility] [id number]) OP-PT Subjective Patient Comments Patient Comments pt notes when he does his stretches then his abdomen will start to spasm. He feels okay in the am but by the night time he is in such a spasm PT-OP-F Manual Assessment Start: 04/05/21 11:19 Freq: Status: Active Protocol: Document 04/05/21 11:15 [facility] (Rec: 04/12/21 13:52 [facility] [email or web address]) Manual Assessments Soft Tissue Assessment Soft Tissue Mobility Assessment tightness across the abdominal wall, descending colon, suprapubic fascia, low back lumbar paraspinals PT-OP-J Posture/Palpation/Skin Start: 04/05/21 11:19 Freq: Status: Active Protocol: Document 04/05/21 11:15 [facility] (Rec: 04/12/21 13:52 [facility] [email or web address]) Palpation Assessment Location adductors Palpation Findings Soft Tissue Tightness,Muscle Guarding Palpation Details left greater than right adductor spasm lumbar paraspinals Palpation Findings Soft Tissue Tightness,Spasm, Muscle Guarding descending colon Palpation Findings Muscle Guarding,Tenderness suprapubic fascia Palpation Findings Soft Tissue Tightness,Muscle Guarding,Tenderness PT-OP-Q Treatments Start: 04/05/21 11:19 Freq: Status: Active Protocol: Document 05/16/21 09:50 [facility] (Rec: 05/16/21 10:45 [facility] [id number]) Therapeutic Exercises Supine Exercises 1/2 horizontal foam roll for T spine Comments pt cued to keep lower back from arching pelvic tilt Side bilateral Reps/Minutes x 5 Standing Exercises standing pelvic tilt against the wall Reps/Minutes x 5 Other Exercises cat cow Reps/Minutes x 10 reps Comments worked on lumbar flexion only in this position as extension was aggravating christiano pose Reps/Minutes hold x 2 min Comments center and side to side rock backs Reps/Minutes x 10 reps Comments pt reports this stretch feels good Manual Therapy Treatment Soft Tissue Mobilization thoracic paraspinals Body Location thoracic paraspinals Mobilization Type Myofascial Release Intensity/Depth Moderate Body Position Prone MFR of the gluteal attachments to the sacrum Mobilization Type Myofascial Release Intensity/Depth Moderate Body Position Prone Comments tightness B gluteal PT-OP-T Assessment and Plan Start: 04/05/21 11:19 Freq: Status: Active Protocol: Document 05/16/21 09:50 [facility] (Rec: 05/16/21 10:08 [facility] [id number]) Physical Therapy Assessment Assessment Summary Assessment dry needling and botox are options that may help Yassine for his lumbar paraspinals and pelvic floor. Today his low back was assessed more and he is very arched and unsupported in the lower lumbar spine. I would question spondylosis. We worked on neutral spine and flexion based stretches and this did help to decrease spasm in his pelvic floor today. He seemed to be able to contract his abdominal muscles in this position as well today without increase spasms. Work towards stabilization in neutral spine with exercises as well as improving thoracic mobility. He is very kyphotic in his thoracic spine Physical Therapy Plan Frequency and Duration Frequency of Treatment 1x/Week Duration of Treatment 8 Plan of Care Start Date 04/05/21 Plan of Care End Date 06/05/21 Therapeutic Interventions Therapeutic Interventions Home Exercise Program,Manual Therapy,Neuromuscular Re- education,Patient/Caregiver Education,Self-Care/Home Management,Soft Tissue Mobilization,Therapeutic Exercises Next Visit Focus/Plan Next Note Type Treatment Note Next Visit Plan focus on core stabilization in neutral spine, thoracic mobility
--- NOTE | 2021-05-23 14:13 | PT.OTN ---
Current Diagnoses Dorsalgia, unspecified (05/23/21) Lower abdominal pain, unspecified (05/23/21) Physical Therapy Treatment Note PT-OP-A Visit Information Start: 04/05/21 11:19 Freq: Status: Active Protocol: Document 05/23/21 13:01 [facility] (Rec: 05/23/21 14:13 [facility] [id number]) Out-Patient Physical Therapy Visit Information Visit Information Visit Type Treatment Note Visit Start Time 13:00 Visit Stop Time 13:45 Total Visit Minutes 45 Visit Number 5 PT-OP-B Current Condition Start: 04/05/21 11:19 Freq: Status: Active Protocol: Document 04/05/21 11:15 [facility] (Rec: 04/05/21 11:39 [facility] [id number]) Current Condition History of Current Condition Onset Date 2007 Current Complaints pelvic pain, low back pain, abdominal pain History of Current Condition pt reports in 2007 woke up with intense groin pain, 3 years later he hasn't been able to work due to pain. He has had some nerves cauterized to see if that would help. 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 He reports he has had PT for his pelvic floor but it seems to tighten back up after it has been relaxed. He reports having 2 seizures the 02 of March in [place]. He spent a week in the hospital in [place]. He feels like his abdominal wall is rock hard at this time. He wasn't able to stand until last week. He feels like his abdominal wall is cramping and has LBP. Pt has had PT for his pelvic floor and with manual therapy techniques he can get it to relax but it wont stay relaxed . Pain with bowel movement, and after bowel movements. Voids 1 xm at night and every 2 hours during the day. Sitting is limited to 10 minutes. pt has a history of head injury in . Treatment Goals Patient/Caregiver Goals pts goals are to reduce c/o abdominal and pelvic pain PT-OP-C Subjective Start: 04/05/21 11:19 Freq: Status: Active Protocol: Document 05/23/21 13:01 [facility] (Rec: 05/23/21 14:13 [facility] [id number]) OP-PT Subjective Patient Comments Patient Comments pt reports he is trying to get a xray from his doctor he has been trying to focus on his pelvic tilt PT-OP-F Manual Assessment Start: 04/05/21 11:19 Freq: Status: Active Protocol: Document 04/05/21 11:15 [facility] (Rec: 04/12/21 13:52 [facility] [id number]) Manual Assessments Soft Tissue Assessment Soft Tissue Mobility Assessment tightness across the abdominal wall, descending colon, suprapubic fascia, low back lumbar paraspinals PT-OP-J Posture/Palpation/Skin Start: 04/05/21 11:19 Freq: Status: Active Protocol: Document 04/05/21 11:15 [facility] (Rec: 04/12/21 13:52 [facility] [id number]) Palpation Assessment Location adductors Palpation Findings Soft Tissue Tightness,Muscle Guarding Palpation Details left greater than right adductor spasm lumbar paraspinals Palpation Findings Soft Tissue Tightness,Spasm, Muscle Guarding descending colon Palpation Findings Muscle Guarding,Tenderness suprapubic fascia Palpation Findings Soft Tissue Tightness,Muscle Guarding,Tenderness PT-OP-Q Treatments Start: 04/05/21 11:19 Freq: Status: Active Protocol: Document 05/23/21 13:01 [facility] (Rec: 05/23/21 14:13 [facility] [id number]) Therapeutic Exercises Supine Exercises TA with march Reps/Minutes x 10 reps each leg piriformis stretch Reps/Minutes hold 1-2 minutes 1/2 foam roll stretch Reps/Minutes chest ict support and test engineers 1/2 horizontal foam roll for T spine Comments pt cued to keep lower back from arching modified squat stretch Reps/Minutes hold 2 minutes Comments feels okay holding both legs up Manual Therapy Treatment Soft Tissue Mobilization thoracic paraspinals Body Location thoracic paraspinals Mobilization Type Myofascial Release Intensity/Depth Moderate Body Position Prone MFR of the gluteal attachments to the sacrum Mobilization Type Myofascial Release Intensity/Depth Moderate Body Position Prone Comments tightness B gluteal PT-OP-T Assessment and Plan Start: 04/05/21 11:19 Freq: Status: Active Protocol: Document 05/23/21 13:01 [facility] (Rec: 05/23/21 14:13 [facility] [id number]) Physical Therapy Assessment Goals Pt reports reduced pain with bowel movements Impairment pain with bowel movements Semi Automatic Sewing Machine Operator Goal (LTG) pt reports a overall reduction in pelvic floor and abdominal pain with bowel movements LTG Duration 8 weeks pt is educated on stretches for pelvic pain Impairment pt lack s a HEP/stretches for pelvic pain Short Term Goal (STG) Yassine is educated on stretches he can work on to open up his pelvis and reduce tension in the pelvic floor GOOD PROGRESS STG Duration 4 weeks Decrease complaints of pelvic pain and abdominal pain Semi Automatic Sewing Machine Operator Goal (LTG) patient is able to reduce pain from 8/10 to 3-4/10 pt has been able to get some pain relief with positioning and stretches LTG Duration 8 weeks Progress Towards Goals Progress Towards Goals Slow Progress due to Activity Tolerance Assessment Summary Assessment Yassine has been seen x 5 visits. We have been working on lumbar stabilization and improving thoracic mobility as there is a great deal of instability at the lumbar spine and hypomobility of the thoracic spine. He has been able to tolerate this and spasm of the pelvic floor and abdomen seem to be a bit better. A x-ray of the lumbar spine may be helpful so see if there is any physical instability of the L5 on SI or L4 on L5. Yassine would benefit from continued PT to keep working towards the above stated goals Physical Therapy Plan Frequency and Duration Frequency of Treatment 1x/Week Duration of Treatment 8 Plan of Care Start Date 05/23/21 Plan of Care End Date 07/28/21 Therapeutic Interventions Therapeutic Interventions Home Exercise Program,Manual Therapy,Neuromuscular Re- education,Patient/Caregiver Education,Self-Care/Home Management,Soft Tissue Mobilization,Therapeutic Exercises
--- NOTE | 2021-05-23 14:13 | PT.OPPOC ---
Physical, Occupational & Speech Therapy At [facility] Current Diagnoses Dorsalgia, unspecified (05/23/21) Lower abdominal pain, unspecified (05/23/21) Visit Care Team Role Provider Type Abner Jay MD Attending Provider Physician Family Provider Primary Care Provider Referring Provider Specialty: Internal Medicine Address: [address] [place] [address], [address], [facility] Email: [email or web address] Plan Of Care PT-OP-T Assessment and Plan Start: 04/05/21 11:19 Freq: Status: Active Protocol: Document 05/23/21 13:01 [facility] (Rec: 05/23/21 14:13 [facility] [id number]) Physical Therapy Assessment Goals Pt reports reduced pain with bowel movements Impairment pain with bowel movements Printer Maintainer Goal (LTG) pt reports a overall reduction in pelvic floor and abdominal pain with bowel movements LTG Duration 8 weeks pt is educated on stretches for pelvic pain Impairment pt lack s a HEP/stretches for pelvic pain Short Term Goal (STG) Yassine is educated on stretches he can work on to open up his pelvis and reduce tension in the pelvic floor GOOD PROGRESS STG Duration 4 weeks Decrease complaints of pelvic pain and abdominal pain Printer Maintainer Goal (LTG) patient is able to reduce pain from 8/10 to 3-4/10 pt has been able to get some pain relief with positioning and stretches LTG Duration 8 weeks Progress Towards Goals Progress Towards Goals Slow Progress due to Activity Tolerance Assessment Summary Assessment Yassine has been seen x 5 visits. We have been working on lumbar stabilization and improving thoracic mobility as there is a great deal of instability at the lumbar spine and hypomobility of the thoracic spine. He has been able to tolerate this and spasm of the pelvic floor and abdomen seem to be a bit better. A x-ray of the lumbar spine may be helpful so see if there is any physical instability of the L5 on SI or L4 on L5. Yassine would benefit from continued PT to keep working towards the above stated goals Physical Therapy Plan Frequency and Duration Frequency of Treatment 1x/Week Duration of Treatment 8 Plan of Care Start Date 05/23/21 Plan of Care End Date 07/28/21 Therapeutic Interventions Therapeutic Interventions Home Exercise Program,Manual Therapy,Neuromuscular Re- education,Patient/Caregiver Education,Self-Care/Home Management,Soft Tissue Mobilization,Therapeutic Exercises Plan of Care Dates Plan of Care Start Date 05/23/21 Plan of Care End Date 07/28/21 Electronically Signed by: Maria E Giang, PT 05/23/21 [id number] Please Sign and Return: I have reviewed this Plan of Care and certify that the skilled therapy services above are required to meet the patient?s needs. Physician Signature Date Printed Name and Credentials Clinical Instructor Signature Printed Name and Credentials
--- NOTE | 2021-05-30 18:02 | PT.OTN ---
Current Diagnoses Dorsalgia, unspecified (05/30/21) Lower abdominal pain, unspecified (05/30/21) Physical Therapy Treatment Note PT-OP-A Visit Information Start: 04/05/21 11:19 Freq: Status: Active Protocol: Document 05/30/21 13:08 [facility] (Rec: 05/30/21 13:29 [facility] [id number]) Out-Patient Physical Therapy Visit Information Visit Information Visit Type Treatment Note Visit Start Time 13:00 Visit Stop Time 13:45 Total Visit Minutes 45 Visit Number 6 PT-OP-B Current Condition Start: 04/05/21 11:19 Freq: Status: Active Protocol: Document 04/05/21 11:15 [facility] (Rec: 04/05/21 11:39 [facility] [id number]) Current Condition History of Current Condition Onset Date 2007 Current Complaints pelvic pain, low back pain, abdominal pain History of Current Condition pt reports in 2007 woke up with intense groin pain, 3 years later he hasn't been able to work due to pain. He has had some nerves cauterized to see if that would help. 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 He reports he has had PT for his pelvic floor but it seems to tighten back up after it has been relaxed. He reports having 2 seizures the 02 of March in [place]. He spent a week in the hospital in [place]. He feels like his abdominal wall is rock hard at this time. He wasn't able to stand until last week. He feels like his abdominal wall is cramping and has LBP. Pt has had PT for his pelvic floor and with manual therapy techniques he can get it to relax but it wont stay relaxed . Pain with bowel movement, and after bowel movements. Voids 1 xm at night and every 2 hours during the day. Sitting is limited to 10 minutes. pt has a history of head injury in . Treatment Goals Patient/Caregiver Goals pts goals are to reduce c/o abdominal and pelvic pain PT-OP-C Subjective Start: 04/05/21 11:19 Freq: Status: Active Protocol: Document 05/30/21 13:08 [facility] (Rec: 05/30/21 13:29 [facility] [id number]) OP-PT Subjective Patient Comments Patient Comments pt reports his pelvic floor hasn't been as tight and hasn' t hurt as much. He has been tightening when getting up out of bed and this has helped. Going to a sleep study as he skips a breath. When he left last week he was feeling pretty good PT-OP-F Manual Assessment Start: 04/05/21 11:19 Freq: Status: Active Protocol: Document 04/05/21 11:15 [facility] (Rec: 04/12/21 13:52 [facility] [id number]) Manual Assessments Soft Tissue Assessment Soft Tissue Mobility Assessment tightness across the abdominal wall, descending colon, suprapubic fascia, low back lumbar paraspinals PT-OP-J Posture/Palpation/Skin Start: 04/05/21 11:19 Freq: Status: Active Protocol: Document 04/05/21 11:15 [facility] (Rec: 04/12/21 13:52 [facility] [id number]) Palpation Assessment Location adductors Palpation Findings Soft Tissue Tightness,Muscle Guarding Palpation Details left greater than right adductor spasm lumbar paraspinals Palpation Findings Soft Tissue Tightness,Spasm, Muscle Guarding descending colon Palpation Findings Muscle Guarding,Tenderness suprapubic fascia Palpation Findings Soft Tissue Tightness,Muscle Guarding,Tenderness PT-OP-Q Treatments Start: 04/05/21 11:19 Freq: Status: Active Protocol: Document 05/30/21 13:08 [facility] (Rec: 05/30/21 13:29 [facility] [id number]) Therapeutic Exercises Supine Exercises TA with march Reps/Minutes x 10 reps each leg piriformis stretch Reps/Minutes hold 1-2 minutes modified squat stretch Reps/Minutes hold 2 minutes Comments feels okay holding both legs up Other Exercises quadruped TA with opp arm lifts Reps/Minutes x 10 reps cat cow Reps/Minutes x 10 reps Comments worked on lumbar flexion only in this position as extension was aggravating christiano pose Reps/Minutes hold x 2 min Comments center and side to side rock backs Reps/Minutes x 10 reps Comments pt reports this stretch feels good Manual Therapy Treatment Soft Tissue Mobilization thoracic paraspinals Body Location thoracic paraspinals Mobilization Type Myofascial Release Intensity/Depth Moderate Body Position Prone MFR of the gluteal attachments to the sacrum Mobilization Type Myofascial Release Intensity/Depth Moderate Body Position Prone Comments tightness B gluteal PT-OP-T Assessment and Plan Start: 04/05/21 11:19 Freq: Status: Active Protocol: Document 05/30/21 13:08 [facility] (Rec: 05/30/21 13:29 [facility] [id number]) Physical Therapy Assessment Assessment Summary Assessment Yassine does seem to be doing better with finding neutral spine and core activation. Throacic mobility very limited but overall decreased c/o muscle spasms into the abdomen and pelvic floor. Physical Therapy Plan Frequency and Duration Frequency of Treatment 1x/Week Duration of Treatment 8 Plan of Care Start Date 05/23/21 Plan of Care End Date 07/28/21 Therapeutic Interventions Therapeutic Interventions Home Exercise Program,Manual Therapy,Neuromuscular Re- education,Patient/Caregiver Education,Self-Care/Home Management,Soft Tissue Mobilization,Therapeutic Exercises Next Visit Focus/Plan Next Note Type Treatment Note Next Visit Plan waiting for xray results
--- NOTE | 2021-06-13 17:42 | PT.OTN ---
Current Diagnoses Dorsalgia, unspecified (06/13/21) Lower abdominal pain, unspecified (06/13/21) Physical Therapy Treatment Note PT-OP-A Visit Information Start: 04/05/21 11:19 Freq: Status: Active Protocol: Document 06/13/21 09:58 [facility] (Rec: 06/13/21 10:39 [facility] [id number]) Out-Patient Physical Therapy Visit Information Visit Information Visit Type Treatment Note Visit Start Time 09:50 Visit Stop Time 10:30 Total Visit Minutes 40 Visit Number 8 PT-OP-B Current Condition Start: 04/05/21 11:19 Freq: Status: Active Protocol: Document 04/05/21 11:15 [facility] (Rec: 04/05/21 11:39 [facility] [id number]) Current Condition History of Current Condition Onset Date 2007 Current Complaints pelvic pain, low back pain, abdominal pain History of Current Condition pt reports in 2007 woke up with intense groin pain, 3 years later he hasn't been able to work due to pain. He has had some nerves cauterized to see if that would help. 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 He reports he has had PT for his pelvic floor but it seems to tighten back up after it has been relaxed. He reports having 2 seizures the 02 of March in [place]. He spent a week in the hospital in [place]. He feels like his abdominal wall is rock hard at this time. He wasn't able to stand until last week. He feels like his abdominal wall is cramping and has LBP. Pt has had PT for his pelvic floor and with manual therapy techniques he can get it to relax but it wont stay relaxed . Pain with bowel movement, and after bowel movements. Voids 1 xm at night and every 2 hours during the day. Sitting is limited to 10 minutes. pt has a history of head injury in . Treatment Goals Patient/Caregiver Goals pts goals are to reduce c/o abdominal and pelvic pain PT-OP-C Subjective Start: 04/05/21 11:19 Freq: Status: Active Protocol: Document 06/13/21 09:58 [facility] (Rec: 06/13/21 10:39 [facility] [id number]) OP-PT Subjective Patient Comments Patient Comments pt reports he is doing a little better, he ordered a 1/ 2 foam or home. He is trying to stop when his back cramps up. Patient Reported Progress Improving PT-OP-F Manual Assessment Start: 04/05/21 11:19 Freq: Status: Active Protocol: Document 04/05/21 11:15 [facility] (Rec: 04/12/21 13:52 [facility] [id number]) Manual Assessments Soft Tissue Assessment Soft Tissue Mobility Assessment tightness across the abdominal wall, descending colon, suprapubic fascia, low back lumbar paraspinals PT-OP-J Posture/Palpation/Skin Start: 04/05/21 11:19 Freq: Status: Active Protocol: Document 04/05/21 11:15 [facility] (Rec: 04/12/21 13:52 [facility] [id number]) Palpation Assessment Location adductors Palpation Findings Soft Tissue Tightness,Muscle Guarding Palpation Details left greater than right adductor spasm lumbar paraspinals Palpation Findings Soft Tissue Tightness,Spasm, Muscle Guarding descending colon Palpation Findings Muscle Guarding,Tenderness suprapubic fascia Palpation Findings Soft Tissue Tightness,Muscle Guarding,Tenderness PT-OP-Q Treatments Start: 04/05/21 11:19 Freq: Status: Active Protocol: Document 06/13/21 09:58 [facility] (Rec: 06/13/21 10:39 [facility] [id number]) Therapeutic Exercises Supine Exercises TA with march Reps/Minutes x 10 reps each leg piriformis stretch Reps/Minutes hold 1-2 minutes 1/2 foam roll stretch Reps/Minutes chest real estate inspector 1/2 horizontal foam roll for T spine Comments pt cued to keep lower back from arching pelvic tilt Reps/Minutes x 10 reps windshield wipers Reps/Minutes x 10 reps Other Exercises thread the needle in quadruped Reps/Minutes x 10 reps Comments no pain today quadruped TA with opp arm lifts Reps/Minutes x 10 reps single knee to chest. Reps/Minutes 2 reps each holding 30 seconds each cat cow Reps/Minutes x 10 reps Comments worked on lumbar flexion only in this position as extension was aggravating christiano pose Reps/Minutes hold x 2 min Comments center and side to side rock backs Reps/Minutes x 10 reps Comments pt reports this stretch feels good PT-OP-T Assessment and Plan Start: 04/05/21 11:19 Freq: Status: Active Protocol: Document 06/13/21 09:58 [facility] (Rec: 06/13/21 10:39 [facility] [id number]) Physical Therapy Assessment Assessment Summary Assessment Yassine was able to tolerate much more today with her exercises including both thoracic rotation and lumbar rotation. He is reallly liking the foam roll stretches and ordered a foam roll for home. Physical Therapy Plan Frequency and Duration Frequency of Treatment 1x/Week Duration of Treatment 8 Plan of Care Start Date 05/23/21 Plan of Care End Date 07/28/21 Therapeutic Interventions Therapeutic Interventions Home Exercise Program,Manual Therapy,Neuromuscular Re- education,Patient/Caregiver Education,Self-Care/Home Management,Soft Tissue Mobilization,Therapeutic Exercises Next Visit Focus/Plan Next Note Type Treatment Note Next Visit Plan Continue with postural modifications, neutral spine, upper thoracic mobility, core stabilization and pelvic stretches
--- NOTE | 2021-06-20 15:52 | PT.OTN ---
Current Diagnoses Dorsalgia, unspecified (06/20/21) Lower abdominal pain, unspecified (06/20/21) Physical Therapy Treatment Note PT-OP-A Visit Information Start: 04/05/21 11:19 Freq: Status: Active Protocol: Document 06/20/21 09:45 [facility] (Rec: 06/20/21 15:48 [facility] [id number]) Out-Patient Physical Therapy Visit Information Visit Information Visit Type Treatment Note Visit Start Time 09:45 Visit Stop Time 10:30 Total Visit Minutes 45 Visit Number 9 Evaluation Information Evaluation Date 04/05/21 PT-OP-B Current Condition Start: 04/05/21 11:19 Freq: Status: Active Protocol: Document 04/05/21 11:15 [facility] (Rec: 04/05/21 11:39 [facility] [id number]) Current Condition History of Current Condition Onset Date 2007 Current Complaints pelvic pain, low back pain, abdominal pain History of Current Condition pt reports in 2007 woke up with intense groin pain, 3 years later he hasn't been able to work due to pain. He has had some nerves cauterized to see if that would help. 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 He reports he has had PT for his pelvic floor but it seems to tighten back up after it has been relaxed. He reports having 2 seizures the 02 of March in [place]. He spent a week in the hospital in [place]. He feels like his abdominal wall is rock hard at this time. He wasn't able to stand until last week. He feels like his abdominal wall is cramping and has LBP. Pt has had PT for his pelvic floor and with manual therapy techniques he can get it to relax but it wont stay relaxed . Pain with bowel movement, and after bowel movements. Voids 1 xm at night and every 2 hours during the day. Sitting is limited to 10 minutes. pt has a history of head injury in . Treatment Goals Patient/Caregiver Goals pts goals are to reduce c/o abdominal and pelvic pain PT-OP-C Subjective Start: 04/05/21 11:19 Freq: Status: Active Protocol: Document 06/20/21 09:48 [facility] (Rec: 06/20/21 10:23 [facility] [id number]) OP-PT Subjective Patient Comments Patient Comments pt reports he is in a lot more pain this week. He is feels like thoracic rotation aggrvates his back. Patient Reported Progress Same PT-OP-F Manual Assessment Start: 04/05/21 11:19 Freq: Status: Active Protocol: Document 04/05/21 11:15 [facility] (Rec: 04/12/21 13:52 [facility] [id number]) Manual Assessments Soft Tissue Assessment Soft Tissue Mobility Assessment tightness across the abdominal wall, descending colon, suprapubic fascia, low back lumbar paraspinals PT-OP-J Posture/Palpation/Skin Start: 04/05/21 11:19 Freq: Status: Active Protocol: Document 04/05/21 11:15 [facility] (Rec: 04/12/21 13:52 [facility] [id number]) Palpation Assessment Location adductors Palpation Findings Soft Tissue Tightness,Muscle Guarding Palpation Details left greater than right adductor spasm lumbar paraspinals Palpation Findings Soft Tissue Tightness,Spasm, Muscle Guarding descending colon Palpation Findings Muscle Guarding,Tenderness suprapubic fascia Palpation Findings Soft Tissue Tightness,Muscle Guarding,Tenderness PT-OP-Q Treatments Start: 04/05/21 11:19 Freq: Status: Active Protocol: Document 06/20/21 09:45 [facility] (Rec: 06/20/21 10:23 [facility] [id number]) Therapeutic Exercises Supine Exercises TA with march Reps/Minutes x 10 reps each leg piriformis stretch Reps/Minutes hold 1-2 minutes 1/2 foam roll stretch Reps/Minutes chest broom worker pelvic tilt Reps/Minutes x 10 reps windshield wipers Reps/Minutes x 10 reps Manual Therapy Treatment Soft Tissue Mobilization thoracic paraspinals Body Location thoracic paraspinals Mobilization Type Myofascial Release Intensity/Depth Moderate Body Position Prone PT-OP-T Assessment and Plan Start: 04/05/21 11:19 Freq: Status: Active Protocol: Document 06/20/21 09:45 [facility] (Rec: 06/20/21 15:48 [facility] [id number]) Physical Therapy Assessment Assessment Summary Assessment Yassine was more sore today, he was able to tolerate his exercises. We held off on thoracic rotations as although he tolerated it last visit he was sore following. Physical Therapy Plan Frequency and Duration Frequency of Treatment 1x/Week Duration of Treatment 8 Plan of Care Start Date 05/23/21 Plan of Care End Date 07/28/21 Therapeutic Interventions Therapeutic Interventions Home Exercise Program,Manual Therapy,Neuromuscular Re- education,Patient/Caregiver Education,Self-Care/Home Management,Soft Tissue Mobilization,Therapeutic Exercises Next Visit Focus/Plan Next Note Type Treatment Note Next Visit Plan Continue with postural modifications, neutral spine, upper thoracic mobility, core stabilization and pelvic stretches
--- NOTE | 2021-06-27 12:12 | PT.OTN ---
Current Diagnoses Dorsalgia, unspecified (06/27/21) Lower abdominal pain, unspecified (06/27/21) Physical Therapy Treatment Note PT-OP-A Visit Information Start: 04/05/21 11:19 Freq: Status: Active Protocol: Document 06/27/21 11:15 [facility] (Rec: 06/27/21 12:03 [facility] [id number]) Out-Patient Physical Therapy Visit Information Visit Information Visit Type Treatment Note Visit Start Time 11:15 Visit Stop Time 12:00 Total Visit Minutes 45 Visit Number 10 PT-OP-B Current Condition Start: 04/05/21 11:19 Freq: Status: Active Protocol: Document 04/05/21 11:15 [facility] (Rec: 04/05/21 11:39 [facility] [id number]) Current Condition History of Current Condition Onset Date 2007 Current Complaints pelvic pain, low back pain, abdominal pain History of Current Condition pt reports in 2007 woke up with intense groin pain, 3 years later he hasn't been able to work due to pain. He has had some nerves cauterized to see if that would help. 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 He reports he has had PT for his pelvic floor but it seems to tighten back up after it has been relaxed. He reports having 2 seizures the 02 of March in [place]. He spent a week in the hospital in [place]. He feels like his abdominal wall is rock hard at this time. He wasn't able to stand until last week. He feels like his abdominal wall is cramping and has LBP. Pt has had PT for his pelvic floor and with manual therapy techniques he can get it to relax but it wont stay relaxed . Pain with bowel movement, and after bowel movements. Voids 1 xm at night and every 2 hours during the day. Sitting is limited to 10 minutes. pt has a history of head injury in . Treatment Goals Patient/Caregiver Goals pts goals are to reduce c/o abdominal and pelvic pain PT-OP-C Subjective Start: 04/05/21 11:19 Freq: Status: Active Protocol: Document 06/27/21 11:15 [facility] (Rec: 06/27/21 12:03 [facility] [id number]) OP-PT Subjective Patient Comments Patient Comments pt had a sleep study done and notes he isn't sleeping well, he decided to stop coffee cold turkey but he also stopped his pain meds at the same time . He notes he had a really bad week because of this. He has been back on his pain meds for 5 days now PT-OP-F Manual Assessment Start: 04/05/21 11:19 Freq: Status: Active Protocol: Document 04/05/21 11:15 [facility] (Rec: 04/12/21 13:52 [facility] [id number]) Manual Assessments Soft Tissue Assessment Soft Tissue Mobility Assessment tightness across the abdominal wall, descending colon, suprapubic fascia, low back lumbar paraspinals PT-OP-J Posture/Palpation/Skin Start: 04/05/21 11:19 Freq: Status: Active Protocol: Document 04/05/21 11:15 [facility] (Rec: 04/12/21 13:52 [facility] [id number]) Palpation Assessment Location adductors Palpation Findings Soft Tissue Tightness,Muscle Guarding Palpation Details left greater than right adductor spasm lumbar paraspinals Palpation Findings Soft Tissue Tightness,Spasm, Muscle Guarding descending colon Palpation Findings Muscle Guarding,Tenderness suprapubic fascia Palpation Findings Soft Tissue Tightness,Muscle Guarding,Tenderness PT-OP-Q Treatments Start: 04/05/21 11:19 Freq: Status: Active Protocol: Document 06/27/21 11:15 [facility] (Rec: 06/27/21 12:03 [facility] [id number]) Therapeutic Exercises Supine Exercises TA with march Reps/Minutes x 10 reps each leg piriformis stretch Reps/Minutes hold 1-2 minutes 1/2 foam roll stretch Reps/Minutes chest import customer service manager 1/2 horizontal foam roll for T spine Comments pt cued to keep lower back from arching pelvic tilt Reps/Minutes x 10 reps iliopsoas stretch Reps/Minutes 1-2 reps holding 1-2 minutes modified squat stretch Reps/Minutes hold 2 minutes Comments feels okay holding both legs up Other Exercises single knee to chest. Reps/Minutes 2 reps each holding 30 seconds each cat cow Reps/Minutes x 10 reps Comments worked on lumbar flexion only in this position as extension was aggravating christiano pose Reps/Minutes hold x 2 min Comments center and side to side rock backs Reps/Minutes x 10 reps Comments pt reports this stretch feels good PT-OP-T Assessment and Plan Start: 04/05/21 11:19 Freq: Status: Active Protocol: Document 06/27/21 11:15 [facility] (Rec: 06/27/21 12:03 [facility] [id number]) Physical Therapy Assessment Assessment Summary Assessment Pt was tighter and had more muscles spasms today his pain after his stretches is a 4/10. We discussed the importance of not going off any medicine cold turkey and how that can affect his body. He is obtaining a consult from [facility] orthopedic for his back fracture. Physical Therapy Plan Frequency and Duration Frequency of Treatment 1x/Week Duration of Treatment 8 Plan of Care Start Date 05/23/21 Plan of Care End Date 07/28/21 Therapeutic Interventions Therapeutic Interventions Home Exercise Program,Manual Therapy,Neuromuscular Re- education,Patient/Caregiver Education,Self-Care/Home Management,Soft Tissue Mobilization,Therapeutic Exercises Next Visit Focus/Plan Next Note Type Treatment Note Next Visit Plan Continue with postural modifications, neutral spine, upper thoracic mobility, core stabilization and pelvic stretches
--- NOTE | 2021-07-04 18:03 | PT.OTN ---
Current Diagnoses Dorsalgia, unspecified (07/04/21) Lower abdominal pain, unspecified (07/04/21) Physical Therapy Treatment Note PT-OP-A Visit Information Start: 04/05/21 11:19 Freq: Status: Active Protocol: Document 07/04/21 09:45 [facility] (Rec: 07/04/21 09:56 [facility] [id number]) Out-Patient Physical Therapy Visit Information Visit Information Visit Type Treatment Note Visit Start Time 09:45 Visit Stop Time 10:30 Total Visit Minutes 45 Visit Number 11 PT-OP-B Current Condition Start: 04/05/21 11:19 Freq: Status: Active Protocol: Document 04/05/21 11:15 [facility] (Rec: 04/05/21 11:39 [facility] [id number]) Current Condition History of Current Condition Onset Date 2007 Current Complaints pelvic pain, low back pain, abdominal pain History of Current Condition pt reports in 2007 woke up with intense groin pain, 3 years later he hasn't been able to work due to pain. He has had some nerves cauterized to see if that would help. 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 He reports he has had PT for his pelvic floor but it seems to tighten back up after it has been relaxed. He reports having 2 seizures the 02 of March in [place]. He spent a week in the hospital in [place]. He feels like his abdominal wall is rock hard at this time. He wasn't able to stand until last week. He feels like his abdominal wall is cramping and has LBP. Pt has had PT for his pelvic floor and with manual therapy techniques he can get it to relax but it wont stay relaxed . Pain with bowel movement, and after bowel movements. Voids 1 xm at night and every 2 hours during the day. Sitting is limited to 10 minutes. pt has a history of head injury in . Treatment Goals Patient/Caregiver Goals pts goals are to reduce c/o abdominal and pelvic pain PT-OP-C Subjective Start: 04/05/21 11:19 Freq: Status: Active Protocol: Document 07/04/21 09:45 [facility] (Rec: 07/04/21 09:56 [facility] [id number]) OP-PT Subjective Patient Comments Patient Comments pt notes PT seems to be flaring his back. He did find a compression brace and has been wearing around his rib cage and it helps some. He reports his neck has been very tight and sore. He has a appt july 17 with [facility]. Patient Reported Progress Same PT-OP-F Manual Assessment Start: 04/05/21 11:19 Freq: Status: Active Protocol: Document 04/05/21 11:15 [facility] (Rec: 04/12/21 13:52 [facility] [id number]) Manual Assessments Soft Tissue Assessment Soft Tissue Mobility Assessment tightness across the abdominal wall, descending colon, suprapubic fascia, low back lumbar paraspinals PT-OP-J Posture/Palpation/Skin Start: 04/05/21 11:19 Freq: Status: Active Protocol: Document 04/05/21 11:15 [facility] (Rec: 04/12/21 13:52 [facility] [id number]) Palpation Assessment Location adductors Palpation Findings Soft Tissue Tightness,Muscle Guarding Palpation Details left greater than right adductor spasm lumbar paraspinals Palpation Findings Soft Tissue Tightness,Spasm, Muscle Guarding descending colon Palpation Findings Muscle Guarding,Tenderness suprapubic fascia Palpation Findings Soft Tissue Tightness,Muscle Guarding,Tenderness PT-OP-Q Treatments Start: 04/05/21 11:19 Freq: Status: Active Protocol: Document 07/04/21 09:45 [facility] (Rec: 07/04/21 10:34 [facility] [id number]) Manual Therapy Treatment Soft Tissue Mobilization lumbar paraspinals Mobilization Type Myofascial Release Body Position Prone Comments prone with body pillow thoracic paraspinals Body Location thoracic paraspinals Mobilization Type Myofascial Release Intensity/Depth Moderate Body Position Prone PT-OP-T Assessment and Plan Start: 04/05/21 11:19 Freq: Status: Active Protocol: Document 07/04/21 09:45 [facility] (Rec: 07/04/21 10:34 [facility] [id number]) Physical Therapy Assessment Goals Pt reports reduced pain with bowel movements Impairment pain with bowel movements Intermediate Goal (LTG) pt reports a overall reduction in pelvic floor and abdominal pain with bowel movements No change LTG Duration 8 weeks pt is educated on stretches for pelvic pain Impairment pt lack s a HEP/stretches for pelvic pain Short Term Goal (STG) Yassine is educated on stretches he can work on to open up his pelvis and reduce tension in the pelvic floor GOAL MET STG Duration 4 weeks Decrease complaints of pelvic pain and abdominal pain Educational Adviser Goal (LTG) patient is able to reduce pain from 12/20 to 3-08/20 pt has been able to get some pain relief with positioning and stretches but overall no sustaining reduction in pain levels and as of 07/04/21 pt is feeling like his exercises are creating increased pain. LTG Duration 8 weeks Assessment Summary Assessment pt has not had any change in his symptoms and feels his symptoms worsen following his stretches and PT visits. At this point I plan on KEYANA Metzger as he is not making progress. He has an orthopedic consult July 17 and will follow up with us should he need any further PT Physical Therapy Plan Discharge Physical Therapy Discharge Reasons Plateau in Progress
== END 2021-07-05 09:57 ==
LOC: PHYS 09:45
PROVIDERS: Family Provider Student in an Organized Health Care Education/Training Program; PCP Student in an Organized Health Care Education/Training Program; Referring Provider Student in an Organized Health Care Education/Training Program; Visit Provider Student in an Organized Health Care Education/Training Program
DX: R10.30 Lower abdominal pain, unspecified (principal); M54.9 Dorsalgia, unspecified
CPT/HCPCS: 97110; 97140; 97161; 97535

== ENCOUNTER 2021-07-09 23:04 | Emergency (ER) | payer OTHER, SELFPAY ==
[2021-07-09 23:16] VITALS: BP 182/101; PULSE 78; RESP 18; TEMP 36.4; O2SAT 96; BMI 33.0
--- NOTE | 2021-07-09 23:29 | ED_ITS ---
HPI - Back Pain/Injury General Chief Complaint: Back Pain/Injury Stated Complaint: back pain Time Seen by Provider: 07/09/21 23:20 Source: patient History of Present Illness HPI Narrative: 60-year-old male with history of chronic back pain, known T12 compression f racture, AFib and prior seizures presents with unrelenting low back pain with radiation down his right leg since February. He states that he had seizure activity when [place] of [place] and after a prolonged hospitalization was discharged home. He found that the source of his back pain is likely compression Related Data Previous Rx's Medication Instructions Recorded nitroglycerin 0.4 mg sublingual 0.4 mg SL Q5-15M PRN #25 tab 12/14/19 tablet testosterone cypionate 200 mg/mL 100 mg (0.5 mL) IM Q2W #1 ml 03/25/21 intramuscular oil (Depo-Testosterone) rivaroxaban 20 mg tablet (Xarelto) 20 mg PO QPM #90 tab 04/05/21 amlodipine 10 mg tablet 10 mg PO DAILY #90 tab 04/12/21 carvedilol 25 mg tablet 25 mg PO BID #180 tab 04/17/21 lisinopril 40 mg tablet 40 mg PO DAILY #90 tab 05/01/21 atorvastatin 40 mg tablet 40 mg PO BEDTIME #90 tab 06/05/21 hydrochlorothiazide 25 mg tablet 25 mg PO DAILY #90 tab 06/05/21 levetiracetam 1,000 mg tablet 1,000 mg PO BID #180 tab 06/05/21 sertraline 100 mg tablet 100 mg PO DAILY #30 tab 06/14/21 cyclobenzaprine 10 mg tablet 10 mg PO TID PRN #14 tab 07/09/21 gabapentin 300 mg capsule 300 mg PO BEDTIME #14 cap 07/09/21 methylprednisolone 4 mg tablets in See Rx Instructions .ROUTE 07/09/21 a dose pack (Medrol (Justin)) .COMPLEX #21 ea oxycodone 5 mg tablet 5 mg PO Q4-6H PRN #10 tab 07/09/21 Allergies Allergy/AdvReac Type Severity Reaction Status Date / Time Penicillins [PENICILLINS] Allergy Intermediate PATIENT Verified 05/29/21 09:46 CAN'T REMEMBER, WAS TOLD BY HIS FAMILY codeine [CODEINE] AdvReac Intermediate RASH Verified 05/29/21 09:46 Review of Systems Review of Systems Narrative: GENERAL: Denies chills, fatigue, malaise, fever, sweats. HEENT: Denies sinus pain, ear pain, sore throat, difficulty swallowing, dizziness. RESPIRATORY: Denies dyspnea, cough, wheezing, hemoptysis, sputum. CARDIOVASCULAR: Denies chest pain, palpitations, orthopnea, edema, GASTROINTESTINAL: Denies nausea, vomiting, abdominal pain, diarrhea, constipation, melena. : Denies dysuria, frequency, incontinence, hematuria, urinary retention. MUSCULOSKELETAL: See HPI SKIN: Denies rash, skin lesions, or other NEUROLOGIC: Denies weakness, headache, numbness, change in speech, confusion, seizures, incoordination. PSYCHIATRIC: No concerning psychosocial issues. 12 point review of systems is negative except for those stated above Patient History Medical History Anxiety (1991) Atrial fibrillation (1988) Chronic prostatitis (Unknown) Depression (1991) Fractures (1983) Herpes (1996) Hyperlipidemia Hypertension (1999) Low testosterone (2011) Rheumatoid arthritis (1999) Surgical History History of facial surgery (1983) History of parathyroid surgery (2009) Hx of toe surgery (2006) Family History Mother Diabetes mellitus Hypertension Hyperlipidemia Mental health disorder Father Cancer Brother Cancer Grandmother No problems noted. Social History Smoking Status: Never smoker alcohol intake: current substance use type: marijuana Smoking Status: Never smoker alcohol intake frequency: 0-2 drinks per day Substance Use Type: marijuana Exam Narrative Exam Narrative: GENERAL: [60] year old patient appears stated age. Well-developed patient, in moderate distress, obviously having significant pain in his low back HEAD: Atraumatic. Normocephalic. EYES: Pupils equal round and reactive. Extraocular motions intact. No scleral icterus. No injection or drainage. ENT: Nose without bleeding, purulent drainage. Throat without erythema, tonsillar hypertrophy or exudate. Airway patent. NECK: Trachea midline. Non tender CARDIOVASCULAR: Regular rate and rhythm without murmurs, gallops, or rubs. RESPIRATORY: Clear to auscultation. Breath sounds equal bilaterally. No wheezes, rales, or rhonchi. GASTROINTESTINAL: Abdomen soft, non-tender, nondistended. EXTREMITIES: No edema or joint tenderness. BACK: char filter tank tender but free of any obvious external abnormalities. Patient exam notes decreased range of motion and muscle spasm, but no CVA tenderness, or vertebral point tenderness. There are no symptoms of cauda equina such as saddle anesthesia, and decreased reflexes, decreased sensation or strength. NEURO: AOx3. SKIN: No rash or erythema of visible areas Initial Vital Signs Initial Vital Signs: Vital Signs Temperature 97.5 F L 07/09/21 23:16 Pulse Rate 78 07/09/21 23:16 Respiratory Rate 18 07/09/21 23:16 Blood Pressure 182/101 H 07/09/21 23:16 Pulse Oximetry 96 07/09/21 23:16 Course Orders Ordered: Discontinued Medications Cyclobenzaprine HCl (Cyclobenzaprine 10 Mg Prepack) 1 bottle MISC SEEINSTR ONE Stop: 07/09/21 23:40 Last Admin: 07/09/21 23:58 Dose: 1 bottle Documented by: IFRAH Gabapentin (Gabapentin 300 Mg Capsule) 300 mg PO NOW ONE Stop: 07/09/21 23:40 Last Admin: 07/09/21 23:58 Dose: 300 mg Documented by: IFRAH Ketorolac Tromethamine (Ketorolac 30 Mg/Ml Vial) 30 mg IM NOW ONE Stop: 07/09/21 23:40 Last Admin: 07/09/21 23:58 Dose: 30 mg Documented by: IFRAH Oxycodone/Acetaminophen (Oxycodone/Apap 5/325 Prepack) 1 bottle MISC SEEINSTR ONE Stop: 07/09/21 23:40 Last Admin: 07/09/21 23:58 Dose: 1 bottle Documented by: IFRAH Prednisone (Prednisone 20 Mg Tablet) 40 mg PO NOW ONE Stop: 07/09/21 23:40 Last Admin: 07/09/21 23:58 Dose: 40 mg Documented by: IFRAH Reevaluation(s) Reevaluation #1: Patient able to walk out under his own power after above-stated therapies, admittedly feeling much better Vital Signs Vital signs: Vital Signs - 8 hr 07/09/21 23:16 07/10/21 00:41 Temperature 97.5 F L Pulse Rate 78 62 Respiratory Rate 18 18 Blood Pressure 182/101 H 112/55 L Pulse Oximetry 96 93 MDM - Back Pain/Injury MDM Narrative Medical decision making narrative: Multiple etiologies of back pain considered including; Epidural abscess, cauda equina, mass occupying lesion, and other considered, however no red flags to suggest likelihood of neuro surgical emergency are present. Patient feeling much better after above-stated therapies, has appointment with Ortho later in the week. He has been given extensive return precautions and questions have been answered to his apparent satisfaction Discharge Plan Departure Patient Disposition: Home Clinical Impression: Lumbar radiculopathy, right Instructions: DI for Back Pain With Sciatica Activity Restrictions/Additional Instructions: *You have been diagnosed with [acute on chronic lumbar radiculopathy *What to do: *Please continue to take your regular medications as directed. [x ] New medication prescriptions sent to your pharmacy: [[facility] ] [ ] New medication written as a paper prescription [ ] No new medications given *Please follow up with your primary care provider in 2-3 days, call for an appointment. Let them know you were seen in the Emergency Department and that we ask that you be seen in follow up. We will electronically transmit a record of today's note if your PCP is in our system *If you do not have a primary care provider please contact the [facility] Resource line at [phone]. They will ask some questions about your medical history and help get you set up with a doctor in the community. *Return to Emergency Department if you should have any new, worsening or concerning symptoms, such as [fever greater than 101 F, shaking chills, worsening pain, persistent vomiting or other bothersome symptoms] You have been prescribed a short course of narcotic medications. These are potentially dangerous and addictive medications that should be used carefully. While on these medications you cannot drive or operate heavy machinery. Additionally, you cannot sign legal documents or perform any duties such as this. Many people get constipated on narcotic medications so it would be advisable to discuss stool softeners with the pharmacist when you chart picker your prescription. Please understand that we cannot provide further refills of narcotics or controlled substances through the ED and your pain management will need to be through your Primary Care Provider Prescriptions: New cyclobenzaprine 10 mg tablet 10 mg PO TID PRN (Reason: muscle spasm) Qty: 14 0RF gabapentin 300 mg capsule 300 mg PO BEDTIME Qty: 14 0RF methylprednisolone [Medrol (Justin)] 4 mg tablets,dose pack See Rx Instructions .ROUTE .COMPLEX Qty: 21 0RF Rx Instructions: orally per package directions oxycodone 5 mg tablet 5 mg PO Q4-6H PRN (Reason: pain) Qty: 10 0RF No Action testosterone cypionate [Depo-Testosterone] 200 mg/mL oil 100 mg IM Q2W Qty: 1 5RF Hold Instructions: Polycythemia Xarelto 20 mg tablet 20 mg PO QPM Qty: 90 3RF Rx Instructions: must administer with evening meal amlodipine 10 mg tablet 10 mg PO DAILY Qty: 90 3RF carvedilol 25 mg tablet 25 mg PO BID Qty: 180 3RF Rx Instructions: must administer with a meal/food lisinopril 40 mg tablet 40 mg PO DAILY Qty: 90 2RF atorvastatin 40 mg tablet 40 mg PO BEDTIME Qty: 90 2RF hydrochlorothiazide 25 mg tablet 25 mg PO DAILY Qty: 90 2RF levetiracetam 1,000 mg tablet 1,000 mg PO BID Qty: 180 2RF sertraline 100 mg tablet 100 mg PO DAILY Qty: 30 0RF Rx Instructions: 1/2 tab for first 2 weeks nitroglycerin 0.4 mg tablet, sublingual 0.4 mg SL Q5-15M PRN (Reason: chest pain) Qty: 25 1RF Rx Instructions: do not exceed 3 doses per episode, (repeat every 5 minutes) Referrals: Abner Jay MD [Primary Care Provider] -
[2021-07-09] MEDS: KETOROLAC 30 MG/ML VIAL IM (23:58)
[2021-07-09] MEDS: CYCLOBENZAPRINE 10 MG PREPACK 1 BOTTLE MISC (23:58)
[2021-07-09] MEDS: OXYCODONE/APAP 5/325 PREPACK 1 BOTTLE MISC (23:58)
[2021-07-09] MEDS: predniSONE 20 MG TABLET 40 MG PO (23:58)
[2021-07-09] MEDS: GABAPENTIN 300 MG CAPSULE PO (23:58)
[2021-07-10 00:41] VITALS: BP 112/55; PULSE 62; RESP 18; O2SAT 93
== END 2021-07-10 00:45 | disposition home or self-care (01) ==
PROVIDERS: Emergency Provider Emergency Medicine; Family Provider Student in an Organized Health Care Education/Training Program; PCP Student in an Organized Health Care Education/Training Program
DX: M54.16 Radiculopathy, lumbar region (principal); Z88.5 Allergy status to narcotic agent
CPT/HCPCS: 96372; 99283; J1885

== ENCOUNTER → 2021-07-10 11:56 | Outpatient (CLI) | payer OTHER, SELFPAY ==
--- NOTE | 2021-07-10 11:56 | DI.CT.S_ITS ---
PROCEDURE: CT SINUS SCREEN WO CON INDICATIONS: Recurrent infection, h/o facial reconstruction TECHNIQUE: Noncontrast 3.0 mm axial images acquired from the frontal sinuses to the mid-sella, with coronal and sagittal reformats. For radiation dose reduction, the following was used: automated exposure control, adjustment of mA and/or kV according to patient size. COMPARISON: None. FINDINGS: Image quality: Excellent. Maxillary Sinuses: Bilateral uncinectomies with large nasal antral windows present. Ethmoid Air Cells: Middle ethmoidectomy. Mucosal thickening noted involving the ethmoid sinuses. Sphenoid Sinuses: No bony remodeling or destruction. Sinuses are clear. Frontal Sinuses: The frontal recesses are obstructed on the right, and appears patent on the left. Mild mucosal thickening noted. No osseous expansion or sclerosis. Miscellaneous: Bilateral middle turbinectomies. Nasal septal spurring to the left noted. Evidence of prior orbital floor fracture repairs noted. Additionally, the superior anterior orbital schneider are dehiscent bilaterally. IMPRESSION: 1. Bilateral uncinectomy, middle turbinectomy and middle ethmoidectomy. 2. Persistent mucosal thickening involves the anterior ethmoids resulting in obstruction of the right frontal sinus recess. 3. Prior orbital floor repair associated with small foci of dehiscence involving the medial superior orbital schneider, bilaterally. Approved by: Addison Marie M.D. on 07/10/2021 at 16:42
== END ==
PROVIDERS: Family Provider Student in an Organized Health Care Education/Training Program; PCP Student in an Organized Health Care Education/Training Program; Referring Provider Student in an Organized Health Care Education/Training Program; Visit Provider Student in an Organized Health Care Education/Training Program
DX: J32.2 Chronic ethmoidal sinusitis (principal); J34.89 Other specified disorders of nose and nasal sinuses; Z98.890 Other specified postprocedural states
CPT/HCPCS: 70486

== ENCOUNTER → 2021-07-21 07:34 | Outpatient (CLI) | payer OTHER, SELFPAY ==
--- NOTE | 2021-07-21 07:36 | DI.MRI.S_ITS ---
PROCEDURE: MR LUMBAR SPINE WO CON INDICATIONS: Radiculopathy Cervical region; Lumbar fracture TECHNIQUE: Noncontrast sagittal T1 spin echo and T2 fast echo, sagittal STIR, axial T1 and T2 fast spin echo through the lumbar spine. In cases with scoliosis, additional coronal T2 fast spin echo may be performed. COMPARISON: [facility], CR, XR LUMBAR SPINE 2-3V, 05/30/2021, 11:35. FINDINGS: Image quality: Excellent. Alignment and Curvature: There is normal bony alignment. Bone Marrow: Subacute moderate compression fracture T11 with approximately 60% anterior vertebral body height loss. No bony retropulsion. Subacute T12 compression fracture approximately 40% anterior vertebral body height loss. There is trace posterior bony retropulsion canal stenosis. Spinal Cord: Conus medullaris terminates at the L1 level. Visualized cord demonstrates normal signal and size. Paraspinous Soft Tissues: No paravertebral masses. T11-T12: Moderate subacute T11 compression fracture. Mild to moderate T12 compression fracture. Trace superior endplate T12 posterior retropulsion. No canal stenosis or foraminal stenosis. T12-L1: No canal stenosis or foraminal stenosis. L1-L2: Mild disc bulge. Mild facet hypertrophy. No canal stenosis. Mild left foraminal narrowing. L2-L3: Mild facet hypertrophy. No canal stenosis or foraminal stenosis. L3-L4: Mild disc bulge. Facet hypertrophy. Nzrn-mo-thkdsvel canal stenosis. Right foraminal annulus tear with disc bulge abutting the right L3 nerve root. Mild to moderate right foraminal stenosis. Left foraminal disc bulge abuts the left L3 nerve root with [id number] left foraminal stenosis. L4-L5: Disc bulge. Facet hypertrophy. Fjfh-ng-zzemylxo canal stenosis. Right foraminal annulus tear plus disc bulge. Moderate to severe right foraminal narrowing with a degree of impingement of the right L4 nerve root in the right foramen. Moderate left foraminal narrowing with mild flattening deformity on the exiting left L4 nerve root. L5-S1: Disc bulge. Facet hypertrophy. Mild canal stenosis. Pidk-eb-qzgyedil bilateral foraminal stenosis. IMPRESSION: 1. Subacute compression fractures of T11 and T12 as described above. No associated canal stenosis. 2. Multilevel facet arthropathy. 3. Canal stenosis is mild to moderate at L3-L4, qqbh-rq-qjssshxy at L4-L5, and mild at L5-S1. 4. Multilevel foraminal narrowing as described above. 5. Of note, there are right foraminal annulus tears at L3-L4 and at L4-L5. Dictated by: Gurwinder Tsai M.D. on 07/21/2021 at 7:56 Approved by: Gurwinder Tsai M.D. on 07/21/2021 at 8:04
--- NOTE | 2021-07-21 07:36 | DI.MRI.S_ITS ---
PROCEDURE: MR CERVICAL SPINE WO CON INDICATIONS: Radiculopathy Cervical region; Lumbar fracture TECHNIQUE: Noncontrast sagittal T1 spin echo and T2 fast spin echo, sagittal STIR, foraminal oblique sagittal T2 fast spin echo, and axial gradient echo or T2 fast spin echo through the cervical spine. COMPARISON: [facility], MR, MR CERVICAL SPINE WO CON, 08/03/2019, 9:20. FINDINGS: Image quality: Excellent. Alignment and Curvature: Trace degenerative anterolisthesis of C2 on C3. Trace degenerative retrolisthesis C5 on C6 and of C6 on C7. Bone Marrow: Marrow demonstrates normal overall signal. Spinal Cord: Visualized spinal cord has normal size and signal. No cerebellar tonsillar herniation. Paraspinous Soft Tissues: No paravertebral masses. Prevertebral soft tissues are normal in thickness. C2-C3: No canal stenosis. Bilateral facet hypertrophy. No significant foraminal stenosis. C3-C4: Posterior disc bulge with flattening on the ventral aspect of the cord. Borderline canal stenosis. AP diameter of the canal is 10 mm. There is right foraminal disc protrusion plus associated uncovertebral joint osteophyte, also previously present, but slightly increased,, which impinges on the ventral nerve root of the right C4 nerve as well as resulting in severe right foraminal narrowing and impingement the right C4 nerve in the foramen. Left uncovertebral joint hypertrophy results in mild to moderate left foraminal narrowing. C4-C5: Disc bulge abutting the cord. Borderline canal stenosis. AP diameter of the canal is 10 mm. Bilateral uncovertebral joint hypertrophy and facet hypertrophy. Awbn-mv-zwropbnw right foraminal narrowing. Moderate left foraminal narrowing with mild flattening deformity on the exiting left C5 nerve root. C5-C6: Disc bulge abutting the cord. Mild canal stenosis. AP diameter of the canal is 9 mm. Facet hypertrophy and uncovertebral joint hypertrophy bilaterally. There is moderate to severe bilateral foraminal narrowing with bilateral foraminal C6 nerve root impingement. C6-C7: Disc bulge. Borderline canal stenosis. AP diameter of the canal is 9.8 mm. There is bilateral uncovertebral joint hypertrophy and facet hypertrophy. There is moderate right foraminal narrowing with flattening deformity on the exiting right C7 nerve root. There is an extruded disc fragment in the left foramen impinging on the left C7 nerve root. C7-T1: No canal stenosis or foraminal stenosis. IMPRESSION: 1. At C6-C7, a extruded left foraminal disc fragment impinges on the left C7 nerve root in the left foramen. 2. Diffuse spondylitic change with multilevel uncovertebral joint hypertrophy and facet hypertrophy. 3. Canal stenosis is borderline at C3-C4, borderline at C4-C5, mild at C5-C6, and borderline at C6-C7. 4. At C3-C4, there is a right foraminal disc protrusion plus associated uncovertebral joint osteophyte, slightly increased, impinging on the right C4 nerve in the right foramen. 5. Multilevel foraminal narrowing as described above. Dictated by: Gurwinder Tsai M.D. on 07/21/2021 at 8:12 Approved by: Gurwinder Tsai M.D. on 07/21/2021 at 8:29
== END ==
PROVIDERS: Family Provider Student in an Organized Health Care Education/Training Program; PCP Student in an Organized Health Care Education/Training Program; Referring Provider Physical Medicine & Rehabilitation; Visit Provider Physical Medicine & Rehabilitation
DX: M50.11 Cervical disc disorder with radiculopathy, high cervical region (principal); M47.22 Other spondylosis with radiculopathy, cervical region; M48.02 Spinal stenosis, cervical region; M48.54XA Collapsed vertebra, not elsewhere classified, thoracic region, initial encounter for fracture; M48.061 Spinal stenosis, lumbar region without neurogenic claudication; M48.07 Spinal stenosis, lumbosacral region; M47.816 Spondylosis without myelopathy or radiculopathy, lumbar region; M47.817 Spondylosis without myelopathy or radiculopathy, lumbosacral region
CPT/HCPCS: 72141; 72148

== ENCOUNTER 2021-08-29 13:18 | Emergency (ER) | payer OTHER, SELFPAY ==
[2021-08-29] VITALS (64 sets, daily range): BP systolic 96–163; BP diastolic 57–102; PULSE 54–130; RESP 8–27; TEMP 37; O2SAT 81–99; BMI 32.1
--- NOTE | 2021-08-29 13:27 | DI.RAD.S_ITS ---
PROCEDURE: XR CHEST 1V INDICATIONS: chest pain TECHNIQUE: One view of the chest was acquired. COMPARISON: [facility], CT, CT CHEST WITHOUT CONTRAST, 08/29/2017, 11:43. [facility], CR, XR CHEST 1V, 12/14/2019, 13:52. FINDINGS: Surgical changes and devices: None. Lungs and pleura: Lungs are clear. No pleural effusions or pneumothorax. Mediastinum: The cardiac contours are within normal limits. The aorta demonstrates calcification and tortuosity. Bones and chest wall: Age-appropriate bony degenerative changes are seen. No suspicious bony lesions. Overlying soft tissues appear unremarkable. IMPRESSION: Portable chest within normal limits for age. Dictated by: Vahid Ramos M.D. on 08/29/2021 at 12:58 Approved by: Vahid Ramos M.D. on 08/29/2021 at 12:59
--- NOTE | 2021-08-29 13:57 | ED_ITS ---
HPI - Arrhythmia/Palpitations General Chief Complaint: Arrhythmia/Palpitations Stated Complaint: AFIB Time Seen by Provider: 08/29/21 13:57 Source: patient Mode of arrival: Ambulatory Limitations: no limitations History of Present Illness HPI narrative: This is a 60-year-old male comes emergency department with complaint of AFib. Patient states he has had many episodes over the past 37 years. Patient states he has had an episode where it feels fast since about 10 30 this morning. He felt hot, sweaty. He has had chest pain and shortness of breath that is been intermittent coming and going. His heart rate has been persistently fast. Patient has taken digoxin in the past orally for this when he would have episodes but not on a daily basis but has not had this available for some time. He denies any swelling his extremities. He has felt a little lightheaded but no syncope. States he is on a blood thinner daily he does not recall the medication but that he takes it every day. He is on multiple medications he states for hypertension, dyslipidemia AFib, seizure and chronic pain. He denies any prior cardiac stents, pacemakers or ablation. He states he has had cardioversions in the past. He denies other surgeries besides injuries to facial bones. He is allergic to penicillin and codeine. No tobacco, alcohol or illicit. He notes he had a stroke and seizure activity in [place] in the last year. Dr. Vargas is his nursing surgical services director, Dr. Florian is his primary care physician. Related Data Previous Rx's Medication Instructions Recorded nitroglycerin 0.4 mg sublingual 0.4 mg SL Q5-15M PRN #25 tab 12/14/19 tablet rivaroxaban 20 mg tablet (Xarelto) 20 mg PO QPM #90 tab 04/05/21 amlodipine 10 mg tablet 10 mg PO DAILY #90 tab 04/12/21 carvedilol 25 mg tablet 25 mg PO BID #180 tab 04/17/21 lisinopril 40 mg tablet 40 mg PO DAILY #90 tab 05/01/21 atorvastatin 40 mg tablet 40 mg PO BEDTIME #90 tab 06/05/21 hydrochlorothiazide 25 mg tablet 25 mg PO DAILY #90 tab 06/05/21 levetiracetam 1,000 mg tablet 1,000 mg PO BID #180 tab 06/05/21 cyclobenzaprine 10 mg tablet 10 mg PO TID PRN #14 tab 07/09/21 gabapentin 300 mg capsule 300 mg PO BEDTIME #14 cap 07/09/21 sertraline 100 mg tablet 100 mg PO DAILY #90 tab 07/19/21 Allergies Allergy/AdvReac Type Severity Reaction Status Date / Time Penicillins [PENICILLINS] Allergy Intermediate PATIENT Verified 08/29/21 13:23 CAN'T REMEMBER, WAS TOLD BY HIS FAMILY codeine [CODEINE] AdvReac Intermediate RASH Verified 08/29/21 13:23 Review of Systems Review of Systems ROS Unobtainable: All systems reviewed & are unremarkable except as noted in HPI and below Patient History Medical History Anxiety (1991) Atrial fibrillation (1988) Chronic prostatitis (Unknown) Depression (1991) Fractures (1983) Herpes (1996) Hyperlipidemia Hypertension (1999) Low testosterone (2011) Rheumatoid arthritis (1999) Surgical History History of facial surgery (1983) History of parathyroid surgery (2009) Hx of toe surgery (2006) Family History Mother Diabetes mellitus Hypertension Hyperlipidemia Mental health disorder Father Cancer Brother Cancer Grandmother No problems noted. Social History Smoking Status: Never smoker alcohol intake: current substance use type: marijuana Smoking Status: Never smoker alcohol intake frequency: 0-2 drinks per day Substance Use Type: marijuana Exam Narrative Exam Narrative: GENERAL: Alert and oriented x three, male in mild distress. Patient does appear little diaphoretic. HEENT: Head normocephalic, atraumatic, EOMI, pupils reactive, face symmetric, moist mucous membranes NECK: Supple, full range of motion CARDIOVASCULAR: Tachycardic and Irregularly irregular rate and rhythm without murmurs, rubs or gallops. No JVD. No swelling bilateral lower extremities. RESPIRATORY: Breath sounds equal bilaterally, no wheezes rales or rhonchi. No tachypnea accessory muscle use. ABDOMEN: Soft, nontender. Normoactive bowel sounds all 4 quadrants. No guarding or rebound, rigidity, no mass : No CVA tenderness EXTREMITIES: Normal range of motion. Neurovascularly intact NEUROLOGICAL: Cranial nerves II through XII grossly intact. Moving all extremities SKIN: Warm, dry, no petechiae, no rashes or lesions. Initial Vital Signs Initial Vital Signs: Vital Signs Temperature 98.6 F 08/29/21 13:23 Pulse Rate 72 08/29/21 13:23 Respiratory Rate 15 08/29/21 13:23 Blood Pressure 131/99 H 08/29/21 13:23 Pulse Oximetry 98 08/29/21 13:23 Procedures Cardioversion Time of Cardioversion: 17:20 Consent Signed: Yes Indication: Persistent chest pain with atrial fibrillation, hypotension and tachycardia with any sort of movement or standing. Stability: Unstable (hypotension/chest pain) Number of attempts (shocks): 2 Joules used: 150 Cardiac rhythm post-cardioversion: Initial shock was in a junctional rhythm 2nd shock, sinus bradycardia Procedural Sedation Time of procedure: 17:20 Consent signed: Yes Indication: cardioversion ASA Class: II Mallampati Airway Classification: Class II Time of Last PO Intake: 12:30 Preparation: secured entrance monitor applied, pulse oximeter, capnometry used, supplemental O2 applied, suction/airway equipment at bedside and IV secured IV Propofol dose (mg): 100 IV Etomidate dose (mg): 8 ED Sedation Level: Moderate (Concious) Patient Tolerated Procedure: Well Complications: significant emergence reaction (patient had emergence reaction with etomidate. Was able to redirect. ) Additional Comments: Patient received 8 mg of etomidate. He was cardioverted and shocked once unsuccessfully but as the medication wore off he became quite paranoid and fearful and had a very unpleasant emergence from the medication. He was redirected with verbal direction. of his on successful cardioversion he was given propofol in 50 mg aliquots for a total of 100 mg. Patient received electrical shock a 2nd time and was cardioverted to a sinus bradycardic rhythm. Patient tolerated this medication much better. Course Orders Ordered: ED Orders 08/29/21 13:27 XR chest 1V Stat EKG-12 Lead Stat 08/29/21 13:35 BNP [NT-proBNP (BNP-Adult 18+)] Stat Complete Blood Count AUTO DIFF Stat Comprehensive Metabolic Panel Stat Lipase Stat Magnesium Stat Partial Thromboplastin Time Stat Prothrombin Time INR Stat Troponin & CK Cardiac Panel Stat 08/29/21 14:30 COVID19 -Nasal RAPID/Pre-Proc Stat 08/29/21 15:45 Troponin I Stat Discontinued Medications Diltiazem HCl (Diltiazem 5 Mg/Ml Sdv) 20 mg IV NOW ONE Stop: 08/29/21 14:18 Last Admin: 08/29/21 14:43 Dose: 20 mg Documented by: SUBHASH Etomidate (Etomidate 2 Mg/Ml 10 Ml Vial) 8 mg IV NOW ONE Stop: 08/29/21 16:45 Last Admin: 08/29/21 17:22 Dose: 8 mg Documented by: SUBHASH Sodium Chloride (Normal Saline 0.9%) 1,000 mls @ 1,000 mls/hr IV BOLUS ONE Stop: 08/29/21 15:16 Last Infusion: 08/29/21 15:41 Dose: 0 mls/hr Documented by: Admin: 08/29/21 14:44 Dose: 1,000 mls/hr Documented by: SUBHASH Propofol (Propofol 200 Mg/20 Ml Vial) 100 mg IV NOW ONE Stop: 08/29/21 17:36 Last Admin: 08/29/21 17:42 Dose: 100 mg Documented by: SUBHASH Reevaluation(s) Reevaluation #1: On recheck patient's tachycardia is improved he is in the 90s to 70 range although it does elevate when he stands or tries to walk to 130. He still has occasional chest discomfort he feels but not normal is still feels some shortness of breath and at times is hypotensive. Patient's labs reviewed that his troponin was repeated secondary to his chest pressure even with his improvement of heart rate. After discussion of risks versus benefits patient is appropriately anticoagulated decision was made to cardiovert. Consent was obtained from the patient. Vital Signs Vital signs: Vital Signs - 8 hr 08/29/21 13:23 08/29/21 13:37 08/29/21 13:59 Temperature 98.6 F Pulse Rate 72 96 H 118 H Respiratory Rate 15 Blood Pressure 131/99 H 102/65 Pulse Oximetry 98 95 94 08/29/21 14:00 08/29/21 14:01 08/29/21 14:30 Temperature Pulse Rate 119 H 124 H 112 H Respiratory Rate 11 L Blood Pressure 115/74 Pulse Oximetry 94 95 91 08/29/21 14:41 08/29/21 14:43 08/29/21 14:51 Temperature Pulse Rate 115 H 126 H 93 H Respiratory Rate 17 10 L Blood Pressure 123/67 115/74 96/58 L Pulse Oximetry 94 92 08/29/21 15:00 08/29/21 15:30 08/29/21 15:31 Temperature Pulse Rate 86 130 H 82 Respiratory Rate 8 L 27 H 18 Blood Pressure 103/70 111/79 Pulse Oximetry 95 95 08/29/21 15:45 08/29/21 16:00 08/29/21 16:01 Temperature Pulse Rate 72 72 69 Respiratory Rate 17 15 Blood Pressure 102/73 Pulse Oximetry 95 95 95 08/29/21 16:15 08/29/21 16:30 08/29/21 16:31 Temperature Pulse Rate 74 83 96 H Respiratory Rate 12 19 13 Blood Pressure 127/76 Pulse Oximetry 97 96 97 08/29/21 16:45 08/29/21 17:02 08/29/21 17:05 Temperature Pulse Rate 75 81 74 Respiratory Rate 14 Blood Pressure Pulse Oximetry 97 95 97 08/29/21 17:10 08/29/21 17:15 08/29/21 17:18 Temperature Pulse Rate 82 99 H 102 H Respiratory Rate 18 Blood Pressure 163/91 H Pulse Oximetry 97 98 98 08/29/21 17:20 08/29/21 17:25 08/29/21 17:27 Temperature Pulse Rate 83 90 82 Respiratory Rate Blood Pressure 163/91 H Pulse Oximetry 98 98 98 08/29/21 17:30 08/29/21 17:31 08/29/21 17:35 Temperature Pulse Rate 90 90 98 H Respiratory Rate 18 Blood Pressure 142/102 H Pulse Oximetry 98 97 99 08/29/21 17:40 08/29/21 17:41 08/29/21 17:45 Temperature Pulse Rate 87 92 H 60 Respiratory Rate Blood Pressure 129/82 Pulse Oximetry 98 97 81 L 08/29/21 17:49 08/29/21 17:50 08/29/21 17:51 Temperature Pulse Rate 59 L 56 L 56 L Respiratory Rate Blood Pressure 124/77 104/57 L Pulse Oximetry 95 85 L 08/29/21 17:55 08/29/21 17:56 08/29/21 17:59 Temperature Pulse Rate 60 60 63 Respiratory Rate Blood Pressure 109/58 L 120/82 Pulse Oximetry 97 97 97 08/29/21 18:00 08/29/21 18:05 08/29/21 18:06 Temperature Pulse Rate 56 L 56 L 58 L Respiratory Rate Blood Pressure 120/88 Pulse Oximetry 97 98 98 08/29/21 18:10 08/29/21 18:15 08/29/21 18:16 Temperature Pulse Rate 60 56 L 55 L Respiratory Rate 24 Blood Pressure 115/66 Pulse Oximetry 99 98 98 08/29/21 18:20 08/29/21 18:25 08/29/21 18:30 Temperature Pulse Rate 54 L 56 L 61 Respiratory Rate Blood Pressure 108/70 Pulse Oximetry 97 95 08/29/21 18:31 08/29/21 18:35 08/29/21 18:40 Temperature Pulse Rate 55 L 58 L 58 L Respiratory Rate Blood Pressure 120/67 Pulse Oximetry 95 94 93 08/29/21 18:45 08/29/21 18:50 08/29/21 18:55 Temperature Pulse Rate 59 L 61 59 L Respiratory Rate Blood Pressure Pulse Oximetry 93 94 92 08/29/21 19:00 08/29/21 19:05 08/29/21 19:10 Temperature Pulse Rate 59 L 61 61 Respiratory Rate Blood Pressure 111/64 Pulse Oximetry 92 93 93 08/29/21 19:15 08/29/21 19:20 08/29/21 19:25 Temperature Pulse Rate 61 62 62 Respiratory Rate Blood Pressure Pulse Oximetry 93 92 93 08/29/21 19:30 08/29/21 19:31 08/29/21 19:35 Temperature Pulse Rate 60 127 H 59 L Respiratory Rate 16 Blood Pressure 115/70 Pulse Oximetry 95 93 08/29/21 19:40 Temperature Pulse Rate 67 Respiratory Rate Blood Pressure 113/67 Pulse Oximetry 94 MDM - Arrhythmia/Palpitations Lab Data Result diagrams: 08/29/21 13:35 08/29/21 13:35 Labs: Lab Results 08/29/21 08/29/21 08/29/21 Range/Units 13:35 13:35 13:35 WBC 7.9 (4.5-11.0) X10^3/uL RBC 5.94 H (4.5-5.9) X10^6/uL Hgb 17.7 H (13.5-17.5) g/dL Hct 51.4 (41-53) % MCV 86.5 (80-100) fL MCH 29.9 (26-34) PG MCHC 34.5 (30-36) % RDW 13.6 (11.6-14.8) % Plt Count 178 (150-400) X10^3/uL Neut % (Auto) 68.1 (50-75) % Lymph % (Auto) 21.8 L (25-40) % [place] % (Auto) 6.8 (3-14) % Eos % (Auto) 2.7 (2-4) % Baso % (Auto) 0.6 (0-2) % Neut # (Auto) 5400 (2336-1804) /uL Lymph # (Auto) 1700 (6420-3497) /uL [place] # (Auto) 500 (0-900) /uL Eos # (Auto) 200 (0-450) /uL Baso # (Auto) 0 (0-100) /uL PT 13.6 H (10.1-12.7) SECONDS INR 1.2 (0.9-1.3) APTT 39 H D (26.4-36.2) SECONDS Sodium 137 (137-145) mmol/L Potassium 4.6 (3.4-5.1) mmol/L Chloride 103 (98-107) mmol/L Carbon Dioxide 26 (22-32) mmol/L BUN 26 H (9-20) mg/dL Creatinine 0.82 (0.66-1.25) mg/dL Estimated GFR > 60 (>60) mL/min BUN/Creatinine Ratio 31.7 H (6-22) Glucose 129 H (80-110) mg/dL Calcium 10.2 (8.4-10.2) mg/dL Magnesium 2.0 (1.6-2.3) mg/dL Total Bilirubin 1.1 (0.2-1.3) mg/dL AST 51 (17-59) IU/L ALT 83 H (<50) IU/L Alkaline Phosphatase 76 (38-126) U/L Total Creatine Kinase 70 (55-170) U/L CK-MB (CK-2) TNP CK-MB (CK-2) Rel Index TNP Troponin I < 0.012 (0.01-0.034) ng/mL NT-Pro-B Natriuret Pep (<125) pg/mL Total Protein 8.0 (6.3-8.2) g/dL Albumin 4.7 (3.5-5.0) g/dL Globulin 3.3 (1.7-4.1) g/dL Albumin/Globulin Ratio 1.4 (1.0-2.8) Lipase 374 H (23-300) U/L SARS-CoV-2 (PCR) (Negative) 08/29/21 08/29/21 08/29/21 Range/Units 13:35 14:30 15:45 WBC (4.5-11.0) X10^3/uL RBC (4.5-5.9) X10^6/uL Hgb (13.5-17.5) g/dL Hct (41-53) % MCV (80-100) fL MCH (26-34) PG MCHC (30-36) % RDW (11.6-14.8) % Plt Count (150-400) X10^3/uL Neut % (Auto) (50-75) % Lymph % (Auto) (25-40) % [place] % (Auto) (3-14) % Eos % (Auto) (2-4) % Baso % (Auto) (0-2) % Neut # (Auto) (5951-4760) /uL Lymph # (Auto) (4631-1661) /uL [place] # (Auto) (0-900) /uL Eos # (Auto) (0-450) /uL Baso # (Auto) (0-100) /uL PT (10.1-12.7) SECONDS INR (0.9-1.3) APTT (26.4-36.2) SECONDS Sodium (137-145) mmol/L Potassium (3.4-5.1) mmol/L Chloride (98-107) mmol/L Carbon Dioxide (22-32) mmol/L BUN (9-20) mg/dL Creatinine (0.66-1.25) mg/dL Estimated GFR (>60) mL/min BUN/Creatinine Ratio (6-22) Glucose (80-110) mg/dL Calcium (8.4-10.2) mg/dL Magnesium (1.6-2.3) mg/dL Total Bilirubin (0.2-1.3) mg/dL AST (17-59) IU/L ALT (<50) IU/L Alkaline Phosphatase (38-126) U/L Total Creatine Kinase (55-170) U/L CK-MB (CK-2) CK-MB (CK-2) Rel Index Troponin I < 0.012 (0.01-0.034) ng/mL NT-Pro-B Natriuret Pep 80 (<125) pg/mL Total Protein (6.3-8.2) g/dL Albumin (3.5-5.0) g/dL Globulin (1.7-4.1) g/dL Albumin/Globulin Ratio (1.0-2.8) Lipase (23-300) U/L SARS-CoV-2 (PCR) Negative (Negative) Imaging Data Chest x-ray: Radiologist's Impresson: [address] [id number] XRay Report Signed Patient: Yassine Saleh MR#: [id number] : 1960 Acct:[id number] Age/Sex: 60 / M Date of Service: 08/29/21 Loc: ED Accession Number: [id number] ?? Procedure: XR chest 1V Ordering Provider: Denisa Charles D.O. PROCEDURE:? XR CHEST 1V ? INDICATIONS:? chest pain ? TECHNIQUE:? One view of the chest was acquired.? ? COMPARISON:? [facility], CT, CT CHEST WITHOUT CONTRAST, 08/29/2017, 11:43.? Merged With [facility], CR, XR CHEST 1V, 12/14/2019, 13:52. ? FINDINGS:? ? Surgical changes and devices:? None.? ? Lungs and pleura:? Lungs are clear.? No pleural effusions or pneumothorax.? ? Mediastinum:? The cardiac contours are within normal limits. The aorta demonstrates calcification and tortuosity. ? Bones and chest wall:? Age-appropriate bony degenerative changes are seen.? No suspicious bony lesions.? Overlying soft tissues appear unremarkable.? ? ? IMPRESSION:? Portable chest within normal limits for age. ? ? Dictated by: Vahid Ramos M.D. on 08/29/2021 at 12:58 ? ? Approved by: Vahid Ramos M.D. on 08/29/2021 at 12:59 ECG Data Attestation: I personally reviewed and interpreted this ECG as follows: Prior ECG tracings: available for review Interpretation: AFib with rapid ventricular response. Rate of 117 QRS 80 QTC of 404. No acute ST elevation or depression noted. Patient has prior EKG from 01/10/2020 which appears similar. EKG 2 AFib, rate of 67, QRS of 96 and QTC of 399. Patient continues to be in AFib no acute ST changes appreciated. EKG 3., sinus bradycardia the rate of 55 NH 184 QRS 86 and QTC at 96 with no acute EKG changes and prior from 12/14/[address] segments. MDM Narrative Medical decision making narrative: This is a 60-year-old male who presents with AFib RVR anticoagulated on Xarelto takes his medication daily. He has had chest pressure, hypotension, and AFib with RVR here in the department. Even when he is rate controlled he continues to have chest pressure intermittently and even hypotension intermittently and when he stands or attempts to walk he becomes tachycardic. Patient's labs including repeat troponin for his chest pressure are negative. He does not have any major electrolyte abnormalities, chest x-ray is negative. Patient has had prior cardioversions and after discussion patient consents which I think is very appropriate considering his hypotension, right irregularities and can not persistent chest pressure. Patient required 2 electrical shocks, his initial medication he received etomidate and had he typically a emergence reaction and felt very paranoid and scared immediately afterwards. He received propofol in addition and tolerated this much better. Patient was cardioverted to a sinus bradycardia. His chest pressure has resolved and blood pressures have been more appropriate and patient feels significantly better. Critical Care Time Critical Care Time Critical Care Time: Yes Total Critical Care Time: 45 Attestation: The high probability of a clinically significant, sudden or life threatening deterioration of the [cardiac] system(s) required my full and direct attention, intervention and personal management. The aggregate critical care time was [45] minutes. This time is in addition to time spent performing reported procedures but includes the following: [x] Data Review and interpretation [x] Patient assessment and monitoring of vital signs [x] Documentation [x] Medication orders and management Discharge Plan Departure Patient Disposition: Home Clinical Impression: Atrial fibrillation with rapid ventricular response Instructions: DI for Atrial Fibrillation Activity Restrictions/Additional Instructions: Follow-up with Dr. Vargas nursing surgical services director. Call to set up an appointment. Please continue home medications as prescribed as well as your blood thinners. Today during your cardioversion you received etomidate and you had an emergence reaction to the medication. You also received propofol which she tolerated much better. Please return for recurrent symptoms, chest pain, shortness of breath, lightheadedness or passing out, recurrent fast or very slow heart rate, new swelling in her extremities or other new or concerning symptoms. Prescriptions: No Action Xarelto 20 mg tablet 20 mg PO QPM Qty: 90 3RF Rx Instructions: must administer with evening meal amlodipine 10 mg tablet 10 mg PO DAILY Qty: 90 3RF carvedilol 25 mg tablet 25 mg PO BID Qty: 180 3RF Rx Instructions: must administer with a meal/food lisinopril 40 mg tablet 40 mg PO DAILY Qty: 90 2RF atorvastatin 40 mg tablet 40 mg PO BEDTIME Qty: 90 2RF hydrochlorothiazide 25 mg tablet 25 mg PO DAILY Qty: 90 2RF levetiracetam 1,000 mg tablet 1,000 mg PO BID Qty: 180 2RF sertraline 100 mg tablet 100 mg PO DAILY Qty: 90 3RF nitroglycerin 0.4 mg tablet, sublingual 0.4 mg SL Q5-15M PRN (Reason: chest pain) Qty: 25 1RF Rx Instructions: do not exceed 3 doses per episode, (repeat every 5 minutes) cyclobenzaprine 10 mg tablet 10 mg PO TID PRN (Reason: muscle spasm) Qty: 14 0RF gabapentin 300 mg capsule 300 mg PO BEDTIME Qty: 14 0RF Referrals: Abner Jay MD [Primary Care Provider] - Sherin Vargas MD [Physician] -
[2021-08-29 14:02] LABS: Add Manual Diff / Slide Review NO; Basophils Absolute Auto 0 /uL (0-100); Basophils Percent Auto 0.6 % (0-2); Eosinophils Absolute Auto 200 /uL (0-450); Eosinophils Percent Auto 2.7 % (2-4); Hematocrit 51.4 % (41-53); Hemoglobin 17.7 g/dL (13.5-17.5); Lymphocytes Absolute Auto 1700 /uL (1100-4500); Lymphocytes Percent Auto 21.8 % (25-40); Mean Corpuscular HGB Conc 34.5 % (30-36); Mean Corpuscular Hemoglobin 29.9 PG (26-34); Mean Corpuscular Volume 86.5 fL (80-100); Monocytes Absolute Auto 500 /uL (0-900); Monocytes Percent Auto 6.8 % (3-14); Neutrophils Absolute Auto 5400 /uL (1500-7000); Neutrophils Percent Auto 68.1 % (50-75); Platelet Count 178 X10^3/uL (150-400); Red Blood Cell Count 5.94 X10^6/uL (4.5-5.9); Red Cell Distribution Width 13.6 % (11.6-14.8); White Blood Cell Count 7.9 X10^3/uL (4.5-11.0)
[2021-08-29 14:11] LABS: INR 1.2 (0.9-1.3); Prothrombin Time 13.6 SECONDS (10.1-12.7)
[2021-08-29 14:14] LABS: Alanine Aminotransferase 83 IU/L (<50); Albumin 4.7 g/dL (3.5-5.0); Albumin Globulin Ratio 1.4 (1.0-2.8); Alkaline Phosphatase 76 U/L (38-126); Aspartate Aminotransferase 51 IU/L (17-59); BUN Creatinine Ratio 31.7 (6-22); Bilirubin Total 1.1 mg/dL (0.2-1.3); Blood Urea Nitrogen 26 mg/dL (9-20); Calcium 10.2 mg/dL (8.4-10.2); Carbon Dioxide 26 mmol/L (22-32); Chloride 103 mmol/L (98-107); Creatine Kinase 70 U/L (55-170); Estimated Glomerular Filt Rate > 60 mL/min (>60); Globulin 3.3 g/dL (1.7-4.1); Glucose 129 mg/dL (80-110); HEMOLYSIS 19 (0-50); Lipase 374 U/L (23-300); PTT Partial Thromboplastin Tim 39 SECONDS (26.4-36.2); Potassium 4.6 mmol/L (3.4-5.1); Sodium 137 mmol/L (137-145)
[2021-08-29 14:23] LABS: NT-proBNP (BNP-Adult 18+) 80 pg/mL (<125)
[2021-08-29 14:25] LABS: Troponin I < 0.012 ng/mL (0.01-0.034)
[2021-08-29] MEDS: dilTIAZem 5 MG/ML SDV 20 MG IV (14:43)
[2021-08-29] MEDS: SODIUM CHLORIDE 0.9% 1,000 ML 1000 ML IV (14:44)
[2021-08-29 14:52] LABS: COVID19 -Nasal RAPID Negative (Negative)
[2021-08-29 16:15] LABS: Troponin I < 0.012 ng/mL (0.01-0.034)
[2021-08-29] MEDS: ETOMIDATE 2 MG/ML 10 ML VIAL 8 MG IV (17:22)
[2021-08-29] MEDS: propofoL 200 MG/20 ML VIAL 100 MG IV (17:42)
== END 2021-08-29 19:40 | disposition home or self-care (01) ==
PROVIDERS: Emergency Provider Emergency Medicine; Family Provider Student in an Organized Health Care Education/Training Program; PCP Student in an Organized Health Care Education/Training Program
DX: I48.91 Unspecified atrial fibrillation (principal); Z79.01 Long term (current) use of anticoagulants; Z20.822 Contact with and (suspected) exposure to COVID-19
CPT/HCPCS: 36415; 71045; 80053; 82550; 83690; 83735; 83880; 84484; 85025; 85610; 85730; 87635; 92960; 93005; 96374; 99152; 99153; 99285; 99291; C9803; J2704

== ENCOUNTER 2021-11-17 23:42 | Emergency (ER) | payer OTHER, SELFPAY ==
[2021-11-17 23:52] VITALS: BP 115/77; PULSE 92; RESP 16; TEMP 36.1; O2SAT 98; BMI 29.9
== END 2021-11-18 01:18 | disposition left against medical advice (07) ==
PROVIDERS: Emergency Provider Emergency Medicine; Family Provider Student in an Organized Health Care Education/Training Program
DX: R00.2 Palpitations (principal)
CPT/HCPCS: 93005; 93010; 99281